=== PATIENT | female | born 1950 | race Caucasian/White ===

== ENCOUNTER → 2023-06-04 14:51 | Outpatient (CLI) | payer MEDICARE, SELFPAY ==
--- NOTE | 2023-06-04 15:06 | XR_ITS ---
FINAL REPORT CLINICAL HISTORY: right knee pain FINDINGS: RIGHT KNEE 3 views of the right knee were obtained. There is no acute fracture or dislocation. There is mild medial compartment joint space narrowing. Visualized joint spaces are normally aligned. Soft tissues are unremarkable. IMPRESSION: No acute bony abnormality. Reviewed, Interpreted and Dictated by Luiz Adams MD Transcribed by Mackenzie Elena Authenticated and [facility]
== END ==
PROVIDERS: Visit Provider Orthopaedic Surgery
DX: M25.561 Pain in right knee (principal)
CPT/HCPCS: 73562

== ENCOUNTER 2023-08-03 14:44 | Outpatient (CLI) | payer MEDICARE, SELFPAY ==
--- NOTE | 2023-08-03 15:29 | MR_ITS ---
FINAL REPORT CLINICAL HISTORY: knee pain. MEDIAL SIDED KNEE PAIN. KNEE INSTABILITY. COMPARISON: None FINDINGS: Multiplanar MR imaging of the right knee was performed without contrast. There is a tear at the junction of the posterior horn and posterior root of the medial meniscus. There is medial subluxation of the body The anterior and posterior cruciate ligaments are intact. The medial collateral ligament and lateral ligamentous complex are intact. There are foci of patellar tendinitis present. There is no evidence of fracture. Moderate patellar chondromalacia is present as well as moderate medial compartment chondromalacia. A small joint effusion is seen. The musculature is intact. A small popliteal cyst is present. IMPRESSION: Tear at the junction of the posterior horn and posterior root of the medial meniscus with medial subluxation of the body of the medial meniscus. Moderate patellar chondromalacia and moderate medial compartment chondromalacia, with a small joint effusion and a small popliteal cyst. Foci of patellar tendinitis are present. Reviewed, Interpreted and Dictated by Kush Cabrera III, MD Transcribed by Annette Badillo Authenticated and [facility]
== END 2023-08-03 23:59 ==
PROVIDERS: PCP Orthopaedic Surgery; Visit Provider Orthopaedic Surgery
DX: M25.561 Pain in right knee (principal)
CPT/HCPCS: 73721

== ENCOUNTER 2023-09-28 14:51 | Outpatient (POV) | payer MEDICARE, SELFPAY | END 2023-09-28 23:59 | disposition home or self-care (01) | LOC: SC 14:51 | PROVIDERS: Visit Provider Dermatology | DX: Z00.00 Encounter for general adult medical examination without abnormal findings (principal) ==

== ENCOUNTER 2023-11-05 15:11 | Outpatient (CLI) | payer MEDICARE, SELFPAY | END 2023-11-05 23:59 | disposition home or self-care (01) | LOC: LAB.DROPOF 11-08 15:12 | PROVIDERS: PCP Family Medicine; Visit Provider Family Medicine | DX: Z01.818 Encounter for other preprocedural examination (principal); R53.83 Other fatigue; I10 Essential (primary) hypertension; E78.5 Hyperlipidemia, unspecified; E55.9 Vitamin D deficiency, unspecified; E11.9 Type 2 diabetes mellitus without complications | CPT/HCPCS: 87081 ==

== ENCOUNTER 2023-11-09 12:58 | Outpatient (CLI) | payer MEDICARE, SELFPAY ==
[2023-11-09 13:28] LABS: Basophils # 0.1 K/mm3 (0-0.2); Eosinophils # 0.3 K/mm3 (0.0-0.4); Eosinophils % 3.6 % (0.1-12.0); Hematocrit 43.2 % (37.0-47.0); Hemoglobin 14.1 g/dL (12.2-16.2); Lymphocytes # 3.4 K/mm3 (0.7-4.5); Lymphocytes % 44.7 % (10-50); Mean Corpuscular HGB Conc 32.7 g/dL (31.8-35.4); Mean Corpuscular Hemoglobin 31.1 pg (27.0-31.2); Mean Corpuscular Volume 95.4 fl (81-99); Mean Platelet Volume 8.5 fl (7.4-10.4); Monocytes # 0.3 K/mm3 (0.1-1.0); Monocytes % 4.3 % (1.7-9.3); Neutrophils # 3.6 K/mm3 (1.8-7.8); Neutrophils % 46.5 % (37.0-80.0); Platelet Count 369 K/mm3 (142-424); Red Blood Count 4.53 M/mm3 (4.20-5.40); Red Cell Distribution Width 14.6 % (11.5-17.5); White Blood Count 7.7 K/mm3 (4.8-10.8)
[2023-11-09 14:01] LABS: Alanine Aminotransferase 30 U/L (12-78); Albumin Level 4.3 g/dl (3.5-5.0); Albumin/Globulin Ratio 1.3 (1.1-1.8); Alkaline Phosphatase 91 U/L (38-126); Anion Gap 14.5 mEq/L (5-15); Aspartate Amino Transferase 37 U/L (14-36); Bilirubin,Total 0.6 mg/dl (0.2-1.3); Blood Urea Nitrogen 18 mg/dl (7-17); Calcium 9.4 mg/dl (8.4-10.2); Carbon Dioxide 27 mmol/L (22.0-30.0); Chloride 104 mmol/L (98-107); Chol/HDL Ratio 3.7 (1-3.5); Cholesterol 300 mg/dl (140-200); Estimated Glomerular Filt Rate 71 ml/min (>60); GFR (African American) 86 ML/MIN (>60); Globulin 3.3 g/dL (1.3-3.2); Glucose 166 mg/dl (74-100); HDL Cholesterol 82 mg/dl (40-60); Potassium 3.5 mmoL/L (3.5-5.1); Sodium 142 mmol/L (136-145); Total Protein,Serum 7.6 g/dl (6.3-8.2); Triglycerides 294 mg/dl (30-150); VLDL Cholesterol 59 mg/dL (0-40)
[2023-11-09 14:12] LABS: C-Reactive Protein 2.2 mg/L (0-4); Direct LDL Cholesterol 165.56 mg/dL (100-129)
[2023-11-09 14:17] LABS: 25-OH Vitamin D, Total 36.5 ng/mL (30-100)
[2023-11-09 14:34] LABS: Thyroid Stimulating Hormone 1.67 uIU/mL (0.465-4.68)
[2023-11-09 14:47] LABS: Erythrocyte Sedimentation Rate 26 mm/hr (0-30)
[2023-11-11 07:20] LABS: RA Latex Turbid. 11.2 IU/mL (<14.0)
[2023-11-11 14:04] LABS: Anti-Cyclic Citrullinated Pept 6 units (0-19)
[2023-11-11 14:24] LABS: Anti-DNA (DS) Ab Qn <1 IU/mL (0-9)
[2023-11-11 14:24] LABS: Anti-Centromere B Antibodies <0.2 AI (0.0-0.9); Anti-DNA (DS) Ab Qn <1 IU/mL (0-9); Anti-Jo-1 <0.2 AI (0.0-0.9); Anti-Smith Antibody <0.2 AI (0.0-0.9); Antichromatin Antibodies 0.2 AI (0.0-0.9); Antiscleroderma-70 Antibodies <0.2 AI (0.0-0.9); RNP Antibodies 2.6 AI (0.0-0.9); Sjogren's Anti-SS-A <0.2 AI (0.0-0.9); Sjogren's Anti-SS-B <0.2 AI (0.0-0.9)
[2023-11-12 04:25] LABS: Lupus Reflex Interpretation Comment: (.); PTT-LA 37.4 sec (0.0-43.5); dRVVT 37.4 sec (0.0-47.0)
== END 2023-11-09 23:59 | disposition home or self-care (01) ==
LOC: LAB 12:59
PROVIDERS: PCP Family Medicine; Visit Provider Family Medicine
DX: R53.83 Other fatigue (principal); E78.5 Hyperlipidemia, unspecified; E55.9 Vitamin D deficiency, unspecified; Z68.37 Body mass index [BMI] 37.0-37.9, adult; E66.9 Obesity, unspecified; M54.9 Dorsalgia, unspecified
CPT/HCPCS: 36415; 80053; 80061; 82306; 84443; 85025; 85613; 85651; 86140; 86200; 86225; 86235; 86431

== ENCOUNTER 2023-12-13 12:03 | Emergency (ER) | payer MEDICARE, SELFPAY ==
[2023-12-13 12:13] VITALS: BP 162/99; PULSE 73; RESP 18; TEMP 36.9; O2SAT 97; BMI 36.7
[2023-12-13] MEDS: TETRACAINE 0.5% OPTH SOL 15ML OP (13:10)
[2023-12-13] MEDS: ACYCLOVIR 400MG TAB 800 MG PO (13:10)
--- NOTE | 2023-12-13 13:50 | HMH.EDGENADL ---
Discharge Plan Disposition Patient Disposition: Xfer Short-Term Hosp Chief Complaint: Skin/Abscess/Foreign Body Prescriptions Prescriptions: No Action duloxetine 60 mg capsule,delayed release(DR/EC) 60 mg PO BID amlodipine 10 mg tablet 10 mg PO DAILY lisinopril 20 mg tablet 20 mg PO DAILY pantoprazole [Protonix] 40 mg tablet,delayed release (DR/EC) 40 mg PO DAILY pregabalin 150 mg capsule 150 mg PO BID Referrals Follow up/Referrals: Provider,Referral, MD [Primary Care Provider] - See instructions Clinical Impressions Clinical Impression: Increased intraocular pressure, Herpes zoster ophthalmicus Stand Alone Forms Stand Alone Forms: Transfer Record - ED Instructions Patient Instructions: DI for Skin Abscess Discharge ED Provider: Edd Fatima General Adult HPI General Chief complaint: Skin/Abscess/Foreign Body Stated complaint: breakout in head Time Seen by Provider: 12/13/23 12:17 Mode of Arrival: Ambulatory Source of Information: Patient Limitations: No Limitations Description of Symptoms (Recalled from ER Triage Doc. by RN): Patient reports blisters on her head and nose. Patient reports she as at [facility] a few nights ago and diagnosed with optical neuritis. History of Present Illness HPI narrative: Please note that above description of symptoms, in this electronic medical record under categorization of recalled from ER triage doctor by RN are reflective of an initial nursing assessment, however, is not reflective of my full history and physical exam that was personally taken and clarified. Consequentially, this preceding description of symptoms, which may include the patient's categorized chief complaint in the EMR, do not reflect my personal clinical impression, and the ultimate description of history of present illness and patient stated complaints should be deferred to this section of the note. Unless stated otherwise or congruent with this section of the note, additional signs, symptoms, or incongruence should be interpreted as inaccurate with my clinical impression. Related Data Home Medications Medication Instructions Recorded Confirmed amlodipine 10 mg tablet 10 mg PO DAILY 11/05/23 11/05/23 duloxetine 60 mg capsule,delayed 60 mg PO BID 11/05/23 11/05/23 release lisinopril 20 mg tablet 20 mg PO DAILY 11/05/23 11/05/23 pantoprazole 40 mg tablet,delayed 40 mg PO DAILY 11/05/23 11/05/23 release (Protonix) pregabalin 150 mg capsule 150 mg PO BID 11/05/23 11/05/23 Allergies Allergy/AdvReac Type Severity Reaction Status Date / Time tizanidine [From Zanaflex] AdvReac Intermediate Hallucinati Verified 11/05/23 13:23 ng tramadol AdvReac Mild Other Verified 11/05/23 13:22 PFSH [facility] Disclaimer: The information contained in this section may have been updated after the patient was seen, as this information can be updated by other users. Medical History (Updated 12/13/23 @ 15:40 by Edd Fatima MD) Raynaud's disease Hypertension Osteoarthritis Neuropathy Diabetes Surgical History (Updated 11/05/23 @ 13:31 by Brooke Covarrubias CMA) History of lumbar fusion History of fusion of cervical spine Hx of laparoscopic gastric banding H/O tubal ligation History of appendectomy Family History (Updated 11/05/23 @ 13:32 by Brooke Covarrubias CMA) Other Cancer Coronary artery disease Diabetes Heart attack Hypertension Social History (Updated 11/05/23 @ 13:33 by Brooke Covarrubias CMA) Smoking Status: Never smoker alcohol intake: never substance use type: denies use current occupational status: unemployed and other Travel in the last 8 weeks: None ROS Obtained: Yes All systems reviewed & no additional complaints except as documented Physical Exam General General appearance: alert and in no apparent distress Head Head exam: atraumatic, normocephalic and other (Numerous scabs on scalp on the right and left side. Also redness and scabbing on left side of forehead. Small lesions on tip of nose as well) Eye Eye exam: Present normal appearance, PERRL and EOMI ENT ENT exam: Present mucous membranes moist Neck Neck exam: Present normal inspection, full ROM and trachea midline Respiratory Respiratory exam: Absent respiratory distress, wheezes, stridor, accessory muscle use or prolonged expiratory phase Cardiovascular Cardiovascular exam: Present normal rhythm Abdominal Exam Abdominal exam: Present soft; Absent distention, tenderness, guarding, rebound or rigidity Extremities Exam Extremities exam: Absent edema Neurological Exam Neurological exam: Present alert, oriented X3, CN II-XII intact and normal gait; Absent motor sensory deficit Skin Skin exam: Present warm and dry; Absent diaphoresis or erythema Medical Decision Making Medical Records Medical records reviewed: Yes I reviewed the patient's medical records. Artemio Inquiry Pt receiving controlled substance: No Artemio was queried for this patient: No Vital Signs: 12/13/23 12:13 12/13/23 14:23 Temperature 98.5 F Temperature Source Oral Pulse Rate 62 Pulse Rate [Right Brachial] 73 Respiratory Rate 18 Blood Pressure 170/90 H Blood Pressure [Right Arm] 162/99 H Blood Pressure Mean [Right Arm] 120 Blood Pressure Position Sitting 02 Sat by Pulse Oximetry 97 97 Oxygen Delivery Method Room Air Room Air Orders (Tests/Meds): ED MEDICATIONS Discontinued Medications Generic Name Dose Route Start Last Admin Trade Name Zehra PRN Reason Stop Dose Admin Acyclovir 800 mg 12/13/23 12:48 12/13/23 13:10 Acyclovir 400mg Tab PO 12/13/23 12:49 800 mg ONCE ONE Administration Tetracaine HCl 0 ml 12/13/23 12:48 12/13/23 13:10 Tetracaine 0.5% Opth Allison 15ml OP 12/13/23 12:49 15 ml ONCE ONE Administration Medical Decision Narrative: 73-year-old female history of optic neuritis, hypertension, hyperlipidemia, concern for autoimmune disorder presenting with concern for shingles infection. Patient states that this has been going on for about 2 days at this point. Scabs on her scalp, painful. No fevers or chills, vision changes, but she is also having left ear pain. Was seen at [facility] just a few days prior to this visit, MRI of the head without acute intracranial abnormality or signs of MS. At that time, intraocular pressures were elevated, was recommended that she go directly to [facility], but patient declined and left AMA. ESR and CRP were negative. Presents today with the symptoms as well. History obtained with patient and outside hospital chart review. On arrival, patient hemodynamically stable, well-appearing. She does have scabs on both sides of her scalp as well as on the left side of her forehead and going down her nose. Visual acuity OS 20/50, OD 20/30, bilateral vision 20/30. Intraocular pressures 40 on the left, 38 on the right. Otic exam without lesions. Differential includes shingles, bug bites, among others. Acyclovir given orally. Because intraocular pressures are increasing from outside hospital just a couple days prior (both in the 20s) and she was supposed go to , but was unable to due to social circumstances, was contacted. Did not recommend IOP lowering eyedrops at this time. Recommended acyclovir which was already given, patient to be transferred to for further evaluation of steadily increasing intraocular pressures and scalp tenderness. Because patient high risk for clinical decompensation if discharged, deemed appropriate for transfer and inpatient admission. Results were relayed to patient who voiced understanding and patient was agreeable to transfer, inpatient admission, and management. Patient was graciously accepted and transferred to for further definitive management, under Dr. Byrd. [employer] Refueling Handler disclaimer Much of this encounter note is an electronic denture technician spoken language to printed text. Electronic denture technician of the spoken language may permit errors. Although I have reviewed the note, some errors may still exist. Critical Care Critical Care Time Critical Care Time: Yes (neuro) Attestation: On 12/13/23, the high probability of a clinically significant, sudden or life threatening deterioration of the following system(s) required my full and direct attention, intervention and personal management. The time I documented below is in addition to time spent performing reported procedures but includes the following listed in this critical care notation. Total Time Total Critical Care Time: 35
[2023-12-13 14:23] VITALS: BP 170/90; PULSE 62; O2SAT 97
--- NOTE | 2023-12-13 14:54 | PC.NURSE ---
Called [facility] transfer center about pt transfer. Waiting for call back from Dr. Byrd.
--- NOTE | 2023-12-13 14:56 | PC.NURSE ---
Dr. Fatima speaking with Dr. Byrd about pt transfer
--- NOTE | 2023-12-13 15:35 | PC.NURSE ---
spoke with EMS for BLS transfer to [facility] for ophthalmology services
[2023-12-13 15:54] LABS: Basophils # 0.1 K/mm3 (0-0.2); Basophils % 1.2 % (0.1-2.0); Eosinophils # 0.3 K/mm3 (0.0-0.4); Eosinophils % 3.7 % (0.1-12.0); Hematocrit 42.2 % (37.0-47.0); Hemoglobin 13.8 g/dL (12.2-16.2); Lymphocytes # 3.2 K/mm3 (0.7-4.5); Lymphocytes % 35.3 % (10-50); Mean Corpuscular HGB Conc 32.7 g/dL (31.8-35.4); Mean Corpuscular Volume 97.8 fl (81-99); Mean Platelet Volume 8.2 fl (7.4-10.4); Monocytes # 0.5 K/mm3 (0.1-1.0); Neutrophils # 4.9 K/mm3 (1.8-7.8); Neutrophils % 54.8 % (37.0-80.0); Platelet Count 297 K/mm3 (142-424); Red Blood Count 4.31 M/mm3 (4.20-5.40); Red Cell Distribution Width 15.1 % (11.5-17.5)
[2023-12-13 16:01] LABS: Chloride 103 mmol/L (98-107); Potassium 3.8 mmoL/L (3.5-5.1); Sodium 138 mmol/L (136-145)
[2023-12-13 16:03] LABS: Alanine Aminotransferase 27 U/L (12-78); Aspartate Amino Transferase 36 U/L (14-36); Blood Urea Nitrogen 21 mg/dl (7-17); Creatinine Clearance Estimated 79 mL/min (50-200); Estimated Glomerular Filt Rate 62 ml/min (>60); GFR (African American) 75 ML/MIN (>60)
[2023-12-13 16:04] LABS: Albumin Level 4.2 g/dl (3.5-5.0); Albumin/Globulin Ratio 1.1 (1.1-1.8); Alkaline Phosphatase 100 U/L (38-126); Anion Gap 9.8 mEq/L (5-15); Bilirubin,Total 0.6 mg/dl (0.2-1.3); Calcium 9.1 mg/dl (8.4-10.2); Carbon Dioxide 29 mmol/L (22.0-30.0); Globulin 3.7 g/dL (1.3-3.2); Glucose 92 mg/dl (74-100); Total Protein,Serum 7.9 g/dl (6.3-8.2)
[2023-12-13 16:09] LABS: C-Reactive Protein 6.1 mg/L (0-4)
[2023-12-13 16:17] LABS: Erythrocyte Sedimentation Rate 22 mm/hr (0-30)
[2023-12-13 16:32] VITALS: BP 136/79; PULSE 80; RESP 20; TEMP 36.7; O2SAT 96
== END 2023-12-13 16:33 | disposition short-term general hospital (02) ==
PROVIDERS: Emergency Provider Emergency Medicine
DX: B02.30 Zoster ocular disease, unspecified (principal); H40.053 Ocular hypertension, bilateral; I10 Essential (primary) hypertension; I73.00 Raynaud's syndrome without gangrene
CPT/HCPCS: 80053; 85025; 85651; 86140; 99285

== ENCOUNTER 2024-08-29 11:43 | Outpatient (CLI) | payer MEDICARE, SELFPAY ==
--- NOTE | 2024-08-29 | XR_ITS ---
FINAL REPORT TECHNIQUE: Thoracic spine 2 views CLINICAL HISTORY: BACK PAIN COMPARISON: None FINDINGS: THORACIC SPINE: AP and lateral views of the thoracic spine were obtained. There is no prior exam for comparison. There is no acute fracture or malalignment. A spinal stimulator device is noted. There is evidence of prior lower cervical spine hardware. There is 20 degrees of dextroscoliosis present. Vertebral body height is preserved. Paraspinal soft tissues are within normal limits. Note is made of a lap band in the left upper quadrant of the abdomen. IMPRESSION: Mild dextroscoliosis as described. No acute bony abnormality identified. Reviewed, Interpreted and Dictated by Luiz Adams MD Transcribed by Annette Badillo Authenticated and [facility]
== END 2024-08-29 23:59 | disposition home or self-care (01) ==
LOC: RAD 11:46
PROVIDERS: PCP Physician Assistant; Visit Provider Physician Assistant
DX: M54.6 Pain in thoracic spine (principal)
CPT/HCPCS: 72072

== ENCOUNTER 2024-12-27 07:57 | Emergency (ER) | payer MEDICARE, SELFPAY ==
--- OUTSIDE RECORDS SUMMARY | 2016-10-25 20:00 | XMS_ITS | Continuity of Care Document ---
Author Organization [facility] [employer] [facility] Address [address] [place] [phone] Phone Care Team Providers Care Competitive Shopper Name Role Phone Marcus Leung MD Unavailable Unavailable Procedures Procedure Date INPATIENT CONSULTATION SUBSEQUENT HOSPITAL CARE ECHO 2D W/DOPPLER Advance Directives Directive Yes / No Effective Date File Name No Information Encounters Encounter Description Practice Location Reason(s) For Visit Diagnoses Date Provider Providers Copied on Encounter [facility], [address] [place] [address], [id number], tel:[phone] [facility] IP No Information Madhu Velazquez. [address] [place] [address], [id number], [place]. tel:[phone] Referring Provider: Aaron Catalan, [address] [place] [address], [id number]. tel:[phone] [facility] [employer] [facility], [address] [place] [address], [id number], tel:[phone] [facility] IP No Information Rubén Gan. [address] [place] [address], [id number], . tel:[phone] Referring Provider: Aaron Catalan, [address] [place] [address], [id number]. tel:[phone] Family History Family Member Type Diagnosis Age At Onset No Information Payers Payer name Insurance type Covered alliance party ID Authorrayray hernandez(s) [facility] [place] [id number] Social History Type Description Quantity Date Captured [...]
--- OUTSIDE RECORDS SUMMARY | 2022-08-14 08:30 | XMS_ITS | Continuity of Care Document ---
Author Organization [facility] Address [address] [place] [address] Phone Care Team Providers Care Legal Secretary Name Role Phone Timothy Lux MD Unavailable Unavailable Allergies, Adverse Reactions, Alerts Substance Reaction Status Criticality prednisone burned stomach sever Active No Info rmation tramadol hallucinating Active No Information Medications Medication Instructions Dosage Effective Dates (start - stop) Status Comments lisinopril 20 mg tablet take 1 tablet by oral route every day 20 MG - Active Norvasc 10 mg tablet take 1 tablet by oral route every day 10 MG - Active Protonix 40 mg tablet,delayed release take 1 tablet by oral route every day 40 MG - Active Lipitor 20 mg tablet take 1 tablet by oral route every day 20 MG - Active Plavix 75 mg tablet take 1 tablet by oral route every day 75 MG - Active Lyrica 100 mg capsule take 1 capsule by oral route 2 times every day 100 MG - Active hydrocodone 5 mg-ibuprofen 200 mg tablet take 1 tablet by oral route every 4 hours as needed not to exceed 5 tablets in 24hrs 1.00 tablet - Active Cymbalta 60 mg capsule,delayed release take 1 capsule by oral route every day 60 MG - Active Procedures Procedure Date EYE EXAM, Comprehensive, Established Jul FLUORESCEIN ANGIOGRAPHY WITH INTERPRETAT ION AND REPORT FUNDUS PHOTOGRAPHY WITH INTERPRETATION A ND REPORT INTRAVITREAL INJECTION OF A PHARMACOLOGI C AGENT Eylea Injection, Aflibercept, 1mg OFFICE/OUTPATIENT VISIT, [facility] Advance Directives Directive Yes / No Effective Date File Name No Information Encounters Encounter Description Practice Location Reason(s) For Visit Diagnoses Date Provider Providers Copied on Encounter [facility], [address] [place] [address], [id number], tel:[phone] [facility] [place] CRVO (chief complaint) Central retinal vein occlusion, left eye, with macular edemaNS Cat Bilateral Jose J Aguirre. [address] [place] [address], [id number], . tel:[phone] OFFICE/OUTPATI ENT VISIT, [facility], [address] [place] [address], [id number], tel:[phone] [facility] [place] Vision Loss (chief complaint) CRVO w/ ME OS Agustin Wolf. [address] [place] [address], [id number], . tel:[phone] Referring Provider: Trent Lam, [address] [place], [address]. tel:[phone] Family History Family Member Type Diagnosis Age At Onset Mother Problem (finding) Diabetes mellitus Mother Problem (finding) Cardiovascular disease Mother Problem (finding) Hypertension Payers Payer name Insurance type Covered green party ID Authoriza tion(s) Medicare [place] [id number] [facility] HealthCareOptions Supplement [place] [id number] Social History Type Description Quantity Date Captured Comments Alcohol Use Details Unknown Caffeine Use Details Unknown Tobacco Use Status No Information Smoking Status No Information Sex Female Chief Complaint And Reason For Visit From encounter dated '08/14/2022 12:30'. CRVO (chief complaint). Description: Referred by Dr. Velez for CVO. Patient awakened with poor vision OS. Went to [facility] and was admitted for stroke workup. Reason For Referral Reason For Referral No Information History Of Present Illness Encounter Date Complaint History Of Prese nt Illness CRVO Referred by Dr. Velez for CVO. Patient awakened with poor vision OS. Went to [facility] and was admitted for stroke workup. Vision Loss Pt noticed 2 wks ago she had vision loss in OS, went to hosp for 6 days for testing to rule out stroke and heart, wearing a heart monitor now, since then has had no change in vision, OD doing goodsometimes pain when looking from side to sideDiab no longer treated for 4-5 yrssees a neuro doctor and a cardiologisthx of IOP highHX of high pressures Functional Status Date Functional Assessmen t No Information Instructions Date Instruction Additional Infor mation Return in [address] Lux for follow up exam and OCT (Macula). Related to Central retinal vein occlusion, left eye, with macular edema Impression/Plan Related to Centr al retinal vein occlusion, left eye, with macular edema Impression/Plan Related to NS Ca t Bilateral 1 day CRVO eval with Dr. Lux Related to CRVO w/ ME OS Impression/Plan Related to CRVO w/ ME OS Assessments Type Assessment Date assessment Central retinal vein occlusion, left eye, with macular edema impression Central retinal vein occlusion, left eye, with macular edema: H34.8120 OS.-not in any way related to embolic disease assessment NS Cat Bilateral impression NS Cat Bilateral: H25.13 OU Patient Care Teams Name Effective Dates (start - stop) Status Members No Information
--- OUTSIDE RECORDS SUMMARY | 2023-10-29 07:00 | XMS_ITS ---
Author Organization [facility] Address [address] [place] [address] [address] [place] [address] Care Team Providers Care Janitorial Account Manager Name Role Phone Patt Joseph Primary Care [...] (MACP) Encounters Encounter Location Date Provider Diagnosis [address] [address] 10/29/2023 Patt Joseph Assessments Encounter Date Diagnosis [...] * DEUCE STORYOB: [birth year] (74 yo F)Acc No.[id number]:10/29/2023 Progress Notes Patient: JIM DAVE Provider: Barbara Morfin M.D. :1950 A ge:73 Y S ex:Female Date:10/29/2023 Address:[address] [place] [address], [place], [id number] Subjective: * Chief Complaints: * 1 . [...] Electronic signature of Jeremi Enriquez MD on 12/27/2024 at 08:03 AM EDT Sign off status: Pending * Provider: Barbara Morfin M.D. Date: 0 10/29/2023 Generated for Lennox fong/Shannon/eTransmitting on: 0 12/27/2024 08:03 AM EDT History and Physical Notes * HPI (History of Present Illness) Category Sub-Category Detail Notes Category Not es Care of Older Adults DME Do you use a DME company?: - Depression Screening PHQ-2 (2015 Edition) Total Score: - Coordination of Care Providers and Specialists D o you have other providers/speciali sts?: -
--- OUTSIDE RECORDS SUMMARY | 2024-12-27 08:02 | XMS_ITS | Continuity of Care Document ---
Author Organization [facility]. If a dditional information is needed, contact Health Information Management at [phone] [address] [place] [address] Phone Care Team Providers Care Jury Consultant Name Role Phone Unavailable Unavailable Unavailable Unavailable Unavailable Unavailable Unavailable Unavailable Unavailable Unavailable Unavailable Unavailable Problems Pneumonia caused by SARS-CoV -2 Onset:06-Oct-2020 Lawanda Gordillo MD Respiratory failure Onset:06-Oct-2020 Lawanda Gordillo MD Mental Status Cognitive function finding 06-Oct-2020 Cognitive function finding 05-Apr-2016 Functional Status Functional finding 05-Apr-2016 Functional finding 01-Apr-2016 Allergies and Adverse Reactions tramadol(Allergy) Onset: 06-Oct-2020 Reaction:FLU LIKE SYMPTOMS Tizanidine(Allergy) Onset: 06-Oct-2020 Reaction:HALLUCINATIONS tramadol(Allergy) Onset: 01-Apr-2016 Reaction:/ Tizanidine(Allergy) Onset: 01-Apr-2016 Reaction:/ Medications dexAMETHasone 6 MG Oral Tablet;6 MILLIGRAM PO DAILY Start:10-Oct-2020 Comments:6 MG PO DAILY 50 ML glucose 500 MG/ML Prefilled Syringe;50 MILLILITERS INTRAVEN. ASDIR Quantity:1 Marina Blue MD Start:07-Oct-2020 Status:Discontinued Comments:[id number] Administration Instructions:GIVE PRN BS 0-65 MG/DL naloxone hydrochloride 0.4 MG/ML Injectable Solution;0.2 MILLIGRAM INTRAVEN. ASDIR Quantity:1 Marina Blue MD Start:06-Oct-2020 Status:Discontinued Comments:[id number] Administration Instructions:PRN RR < 8 or unresponsive to verbal or physical stimuli.Continue to monitor for resedation/respiratory depressionafter administration due to naloxone's short duration ofaction.Advancing respiratory depression bundleDefinition: receiving opioids and respiratory rate < 8 orunresponsive to verbal or physical stimuli1. Hold all opioids including removing patches and stoppinginfusions2. Administer naloxone 0.2mg PRN RR < 8 or unresponsive to cholecalciferol 0.025 MG Chewable Tablet;1000 UNIT PO DAILY Start:06-Oct-2020 Comments:1000 UNIT PO DAILY acetaminophen 325 MG / HYDROcodone bitartrate 5 MG Oral Tablet;1 TABLET PO Q6H PRN Start:06-Oct-2020 Comments:1 TAB PO Q6H PRN As Needed for OSTEOARTHRITIS azithromycin 250 MG Oral Tab let [Zithromax];250 MILLIGRAM PO DAILY Start:06-Oct-2020 Comments:250 MG PO DAILY lisinopril 20 MG Oral Tablet [Prinivil];20 MILLIGRAM PO DAILY Start:06-Oct-2020 Comments:20 MG PO DAILY NORVASC;5 MILLIGRAM PO DAILY Start:06-Oct-2020 Comments:5 MG PO DAILY guaiFENesin 400 MG Oral Tablet;400 MILLIGRAM PO DAILY Start:06-Oct-2020 Comments:400 MG PO DAILY aspirin 325 MG Oral Tablet;3 25 MILLIGRAM PO DAILY Start:06-Oct-2020 Comments:325 MG PO DAILY pantoprazole 40 MG Delayed Release Oral Tablet [Protonix];40 MILLIGRAM PO DAILY Start:06-Oct-2020 Comments:40 MG PO DAILY DULoxetine 60 MG Delayed Release Oral Capsule;60 MILLIGRAM PO BID Start:06-Oct-2020 Comments:60 MG PO BID methocarbamol 500 MG Oral Tablet;500 MILLIGRAM PO BID Start:06-Oct-2020 Comments:500 MG PO BID gabapentin 800 MG Oral Tablet;800 MILLIGRAM PO TID Start:06-Oct-2020 Comments:800 MG PO TID ZESTORETIC 20-25 MG TABLET;1 TABLET PO DAILY Start:03-Apr-2016 Comments:1 TAB PO DAILY CYMBALTA;60 MILLIGRAM PO BID Start:03-Apr-2016 Comments:60 MG PO BID IBUPROFEN;800 MILLIGRAM PO DAILY Start:03-Apr-2016 Comments:800 MG PO DAILY NORVASC;5 MILLIGRAM PO DAILY Start:03-Apr-2016 Comments:5 MG PO DAILY ASPIRIN;325 MILLIGRAM PO JACK LY Start:03-Apr-2016 Comments:325 MG PO DAILY NEURONTIN;600 MILLIGRAM PO BEDTIME Start:03-Apr-2016 Comments:600 MG PO BEDTIME GLUCOPHAGE XR;500 MILLIGRAM PO C DIN Start:03-Apr-2016 Comments:500 MG PO C DIN LISINOPRIL-HCTZ 20-25 MG TAB ;1 TABLET PO DAILY Start:01-Apr-2016 Status:Discontinued Comments:1 TAB PO DAILY CYMBALTA;60 MILLIGRAM PO JACK LY Start:01-Apr-2016 Status:Discontinued Comments:60 MG PO DAILY ASPIRIN;325 MILLIGRAM PO JACK LY Start:01-Apr-2016 Status:Discontinued Comments:325 MG PO DAILY IBUPROFEN;800 MILLIGRAM PO DAILY Start:01-Apr-2016 Status:Discontinued Comments:800 MG PO DAILY GLUCOPHAGE XR;500 MILLIGRAM PO DAILY Start:01-Apr-2016 Status:Discontinued Comments:500 MG PO DAILY NORVASC;5 MILLIGRAM PO DAILY Start:01-Apr-2016 Status:Discontinued Comments:5 MG PO DAILY NEURONTIN;600 MILLIGRAM PO BEDTIME Start:01-Apr-2016 Status:Discontinued Comments:600 MG PO BEDTIME Social History Smoking Status Never smoked tobacco Recorded: 06-Oct-2020
--- OUTSIDE RECORDS SUMMARY | 2024-12-27 08:03 | XMS_ITS | Data Portability ---
Author Organization [place] - [facility] - [place] & IMAN Ying ADMIN Address [address] [place] [phone] Care Team Providers Care Sales Representative Metals Name Role Phone [facility] Referring Provider MICHELLE BERMAN Primary Care Provider Assessment Encounter Date Assessment Date Assessment LastModified by Organization Details LastModified Time 09/07/2024 09/07/2024 No Images reviewed today 09/07/2024: Plan Today, I discussed with the patient about my current findings based on their history and/or physical exam. They have multiple pain generators, however I will treat their pain in a stepwise plan as outlined below. 1. #Intercostal Neuritis, chronic worsening # thoracic DDD - Patient complains of b/l thoracic back pain with referred pain /symptoms to her right and left chest. She mentions that is about the nipple level which correlates with T4 dermatome - This patient is a great candidate for b/l intercostal nerve block. I will plan to perform intercostal nerve block of the 4th - 6th intercostal nerves under fluoroscopic and ultrasound guidance. I will perform the blocks on the right first as this side is more severe. - I have discussed the risks and benefits of this procedure with the patient. The patient expressed understanding and would like proceed. All questions answered in detail. - patient will follow up to 4 weeks 2. #Lumbar spinal stenosis without neurogenic claudication, Chronic stable #Lumbar DDD #Postlaminectomy Syndrome, Chronic stable #Chronic Pain # Van SCS 2023 - s/p C4-C6 ACDF in 2011 and s/p L5-S1 transforaminal lumbar interbody fusion in 2018 - s/p Van SCS implant with Dr. Ilan Partida at [facility] in 2023 -Symptoms in the bilateral LE that is being controlled by her SCS -+ shopping cart sign -Patient has seen multiple pain management providers through the years due to her job forcing her to move. She has an SCS in place that is currently providing efficacy. Per patient, she is unable to go back to the pain management team who placed the device because of the charge that is due and she is unable to pay for that fee currently. She is wanting to go back to work that she can pay off that medical bill the. I will obtain medical records and imaging to review from her previous pain management providers. - Patient denies any previous interventional pain management injections despite having SCS. - Plan to follow up in clinic in 2-4 weeks. 3. #Chronic Pain Syndrome #Opioid Dependence #Chronic Prescription Controlled Substance Use -Drug therapy requiring intensive monitoring for toxicity A. Controlled Substance agreement: TBD B. UDS results reviewed: patient unable to urinate today. patient sent for blood draw. C. PDMP/HUSAM report obtained today and reviewed: reviewed and Appropriate Regina WEINER: [id number] E. As documented in the signed controlled substance agreement, the patient is aware of the risks associated with the administration of medication, including the risk of overdose and , the risk of developing misuse, abuse, and addiction to the prescribed medications, as well as the other risks associated with medication administration. Routine assessment for mental health conditions have been assessed during this visit, and the patient has been properly screened for substance use disorders (risk of developing and presence of these conditions). [email or web address] Not available 09/07/2024 16:09:58 09/28/2024 09/28/2024 Images reviewed today Thoracic Xrays: kyphosis, DDD, no acute Fx's. appears to be 2 SCS thoracic leads at T7/T8 09/28/2024: Plan Today, I discussed with the patient about my current findings based on their history and/or physical exam. They have multiple pain generators, however I will treat their pain in a stepwise plan as outlined below. 1. #Intercostal Neuritis, chronic worsening # thoracic DDD - s/p Right T4-T6 with ultrasound and fluoroscopic imagin% pain relief x 5 days. Pain returned on the 6th day. She was amazed out how much relief she got. During those 5 days, she had improved sleep, less pain, and better mood - she continues to have b/l thoracic back pain with referred pain symptoms to her right and left chest. She mentions that is about the nipple level which correlates with T4 dermatome - This patient is a great candidate for b/l intercostal nerve RFA. I discussed with the patient in detail regarding this procedure. She would like to consider and think it over before moving forward. - I would plan to perform intercostal nerve block of the 4th - 6th intercostal nerves under fluoroscopic and ultrasound guidance. 2. #Lumbar spinal stenosis without neurogenic claudication, Chronic stable #Lumbar DDD #Postlaminectomy Syndrome, Chronic stable #Chronic Pain # Van SCS 2023 - s/p C4-C6 ACDF in 2011 and s/p L5-S1 transforaminal lumbar interbody fusion in 2017 - s/p Van SCS implant with Dr. Ilan Partida at [facility] in 2023 -Symptoms in the bilateral LE that, per the patient, is not being controlled by her SCS at this time -+ shopping cart sign -Patient has seen multiple pain management providers through the years due to her job forcing her to move. Per patient, she is unable to go back to the pain management team who placed the device because of the charge that is due and she is unable to pay for that fee currently. She is wanting to go back to work that she can pay off that medical bill the. I previously requested medical records and imaging to review from her previous pain management providers. Awaiting these records - Patient denies any previous interventional pain management injections despite having SCS. - Discussed about an Van rep being here at the next visit 3. #Chronic Pain Syndrome #Opioid Dependence #Chronic Prescription Controlled Substance Use -Drug therapy requiring intensive monitoring for toxicity A. Controlled Substance agreement: TBD B. UDS results reviewed: Reviewed; THC w/ Delta present. Patient reported taking a 1 OTC gummi previously. Again, patient unable to urinate and was sent for blood draw. F/u in a week C. PDMP/HUSAM report obtained today and reviewed: reviewed and Appropriate Regina WEINER: [id number] E. : As documented in the signed controlled substance agreement, the patient is aware of the risks associated with the administration of medication, including the risk of overdose and , the risk of developing misuse, abuse, and addiction to the prescribed medications, as well as the other risks associated with medication administration. Routine assessment for mental health conditions have been assessed during this visit, and the patient has been properly screened for substance use disorders (risk of developing and presence of these conditions). [email or web address] Not available 09/28/2024 12:58:23 10/05/2024 10/05/2024 Images reviewed previously Thoracic Xrays: kyphosis, DDD, no acute Fx's. appears to be 2 SCS thoracic leads at T7/T8 Images reviewed today Lumbar xrays 09/28/24: DDD, hardware appreciated, b/l SIJ with DJD 10/05/2024: Plan Today, I discussed with the patient about my current findings based on their history and/or physical exam. They have multiple pain generators, however I will treat their pain in a stepwise plan as outlined below. 1. #b/l Sacroiliac Joint Pain, Chronic worsening # B/l Superior Cluneal Neuralgia -Patient has >3 provocative exam maneuvers which include + jairo's finger, HERRERA, thigh thrust, compression, distraction, Gaenslen's -patient has completed PT and other conservative therapies that were listed in the HPI. They remain symptomatic and have failed conservative therapies. - They are an appropriate candidate for this procedure. - Risks and benefits were discussed with the patient. The patient wishes to proceed with the injection. -Will schedule b/l diagnostic SI joint injection under flouroscopic guidance -If significant short term relief >75% on two occasions but no sustained relief consider SI joint ablation. Other options included lateral percutaneous fixation/fusion. - Total Time spent:43min that includes chart preparation, time spent in the room with the patient reviewing symptoms and discussing treatment options, and reviewing pertinent imaging 2. #Intercostal Neuritis, chronic worsening # thoracic DDD - s/p Right T4-T6 with ultrasound and fluoroscopic imagin% pain relief x 5 days. Pain returned on the 6th day. She was amazed out how much relief she got. During those 5 days, she had improved sleep, less pain, and better mood - she continues to have b/l thoracic back pain with referred pain symptoms to her right and left chest. She mentions that is about the nipple level which correlates with T4 dermatome - This patient is a great candidate for right intercostal nerve RFA in the future after we treat her b/l SIJ 3. #Lumbar spinal stenosis without neurogenic claudication, Chronic worsening #Lumbar DDD #Postlaminectomy Syndrome, Chronic stable #Chronic Pain # Van SCS 2023 - s/p C4-C6 ACDF in 2011 and s/p L5-S1 transforaminal lumbar interbody fusion in 2017 - s/p Van SCS implant with Dr. Ilan Partida at [facility] in 2023 -Symptoms in the bilateral LE that, per the patient, is not being controlled by her SCS at this time. The van rep is here today to interrogate the device. They were able to improve her coverage. Patient was happy -+ shopping cart sign -Patient has seen multiple pain management providers through the years due to her job forcing her to move. Per patient, she is unable to go back to the pain management team who placed the device because of the charge that is due and she is unable to pay for that fee currently. She is wanting to go back to work that she can pay off that medical bill the. I previously requested medical records and imaging to review from her previous pain management providers. Awaiting these records - Patient denies any previous interventional pain management injections despite having SCS. 4. #Chronic Pain Syndrome #Opioid Dependence #Chronic Prescription Controlled Substance Use -Drug therapy requiring intensive monitoring for toxicity A. Controlled Substance agreement: 10/05/24 B. UDS results reviewed: UDS on 10/05/24,reviewed and Appropriate; Blood draw was reviewed and Appropriate from 09/28/24. - I will initiate hydrocodone/apap 5/325 q24hr prn for now. She will f/u in a month to discuss if this has controlled her sx's and allowed to work. C. PDMP/HUSAM report obtained today and reviewed: reviewed and Appropriate Regina WEINER: [id number] E. : As documented in the signed controlled substance agreement, the patient is aware of the risks associated with the administration of medication, including the risk of overdose and , the risk of developing misuse, abuse, and addiction to the prescribed medications, as well as the other risks associated with medication administration. Routine assessment for mental health conditions have been assessed during this visit, and the patient has been properly screened for substance use disorders (risk of developing and presence of these conditions). blood draw from 09/07/24: THC w/ Delta present. Patient reported taking a 1 OTC gummi previously. [email or web address] Not available 10/05/2024 15:38:24 11/06/2024 11/06/2024 Images reviewed previously Thoracic Xrays: kyphosis, DDD, no acute Fx's. appears to be 2 SCS thoracic leads at T7/T8 Images reviewed today Lumbar xrays 09/28/24: DDD, hardware appreciated, b/l SIJ with DJD 11/06/2024: Plan Today, I discussed with the patient about my current findings based on their history and/or physical exam. They have multiple pain generators, however I will treat their pain in a stepwise plan as outlined below. 1. #b/l Sacroiliac Joint Pain, Chronic worsening # B/l Superior Cluneal Neuralgia -Patient has >3 provocative exam maneuvers which include + jairo's finger, HERRERA, thigh thrust, compression, distraction, Gaenslen's -Patient has completed PT and other conservative therapies that were listed in the HPI - Bilateral SI Dx injection was not completed as patient reports she is no longer having significant low back pain. 2. #Intercostal Neuritis, chronic worsening # thoracic DDD - S/p Right T4-T6 with ultrasound and fluoroscopic imagin% pain relief x 5 days. Pain returned on the 6th day. - This patient is a great candidate for right intercostal nerve RFA in the future - She is not complaining of Intercostal pain today. 3. #Lumbar spinal stenosis without neurogenic claudication, Chronic worsening #Lumbar DDD #Postlaminectomy Syndrome, Chronic stable #Chronic Pain # Van SCS 2023 - S/p C4-C6 ACDF in 2011 and s/p L5-S1 transforaminal lumbar interbody fusion in 2017 - S/p Van SCS implant with Dr. Ilan Partida at [facility] in 2023 -Symptoms in the bilateral LE that, per the patient, is not being controlled by her SCS at -+ shopping cart sign - Patient has seen multiple pain management providers through the years due to her job forcing her to move. Per patient, she is unable to go back to the pain management team who placed the device because of the charge that is due and she is unable to pay for that fee currently. She is wanting to go back to work that she can pay off that medical bill. Previously requested medical records and imaging to review from her previous pain management providers. Awaiting these records - Patient denies any previous interventional pain management injections despite having SCS. 4. #Chronic Pain Syndrome #Opioid Dependence #Chronic Prescription Controlled Substance Use -Drug therapy requiring intensive monitoring for toxicity A. Controlled Substance agreement: 10/05/24 B. UDS results reviewed: UDS on 10/05/24,reviewed and Appropriate; Blood draw was reviewed and Appropriate from 09/28/24. - Continue hydrocodone/apap 5/325 q24hr prn - this medication is giving patient ability to return to work. I will discuss with Dr. Valero who will review and sign the order. C. PDMP/HUSAM report obtained today and reviewed: reviewed and Appropriate Regina WEINER E. : As documented in the signed controlled substance agreement, the patient is aware of the risks associated with the administration of medication, including the risk of overdose and , the risk of developing misuse, abuse, and addiction to the prescribed medications, as well as the other risks associated with medication administration. Routine assessment for mental health conditions have been assessed during this visit, and the patient has been properly screened for substance use disorders (risk of developing and presence of these conditions). - Blood draw from 09/07/24: THC w/ Delta present. Patient reported taking a 1 OTC gummi previously. She no longer takes gummies. [email or web address] Not available 11/07/2024 12:32:04 12/14/2024 12/14/2024 Images reviewed today Thoracic Xrays: kyphosis, DDD, no acute Fx's. appears to be 2 SCS thoracic leads at T7/T8 Lumbar xrays 09/28/24: DDD, hardware appreciated, b/l SIJ with DJD 12/14/2024: Plan Today, I discussed with the patient about my current findings based on their history and/or physical exam. They have multiple pain generators, however I will treat their pain in a stepwise plan as outlined below. 1. #b/l Sacroiliac Joint Pain, Chronic worsening # B/l Superior Cluneal Neuralgia -Patient has >3 provocative exam maneuvers which include + jairo's finger, HERRERA, thigh thrust, compression, distraction, Gaenslen's -Patient has completed PT and other conservative therapies that were listed in the HPI - They are an appropriate candidate for this procedure. - Risks and benefits were discussed with the patient. The patient wishes to proceed with the injection. -Will schedule b/l diagnostic SI joint injection under flouroscopic guidance -If significant short term relief >75% on two occasions but no sustained relief consider SI joint ablation. Other options included lateral percutaneous fixation/fusion. - Total Time spent:45min that includes chart preparation, time spent in the room with the patient reviewing symptoms and discussing treatment options, and reviewing pertinent imaging 2. #Intercostal Neuritis, chronic worsening # thoracic DDD - S/p Right T4-T6 with ultrasound and fluoroscopic imagin% pain relief x 5 days. Pain returned on the 6th day. pain is worsening and is affecting her daily life. Will pursue after the SIJ injections - This patient is a great candidate for right intercostal nerve RFA in the future 3. #Lumbar spinal stenosis without neurogenic claudication, Chronic worsening #Lumbar DDD #Postlaminectomy Syndrome, Chronic stable #Chronic Pain # Van SCS 2023 - S/p C4-C6 ACDF in 2011 and s/p TLIF L5-S1 (DOS 11/27/16) - S/p Van SCS implant with Dr. Ilan Partida at [facility] in 2023 -Symptoms in the bilateral LE that is not being controlled by her SCS when she is walking. IF she wants to get relief, she has to either extend or back or lay flat on the ground bc the leads are positional. - Continues to have positional pain relief with the SCS. I discussed either attempting to perform a revision to fix the leads where they may not be positional anymore or refer to [facility] to assess for a paddle lead placement to reduce the migration effect tremendously. I will refer to [facility] for paddle lead assessment. 4. #Chronic Pain Syndrome #Opioid Dependence #Chronic Prescription Controlled Substance Use - I had a detailed discussion with the patient regarding treatment modalities and the respective risks/benefits. I educated the patient on the dangers/risks of long-term oral opioids, particularly with increasing age, these risks include respiratory depression, not excluding . I informed the patient that the goal of [facility] will be to incorporate a multi-modal approach to pain management, which may consist of conservative, pharmacologic, and interventional approaches, ultimately decreasing pain and increasing function with focus on both safety and efficacy. I informed the patient that the intention will be to slowly taper once pain is better controlled. The patient verbalized understanding and agreeing to the treatment plan set forth. -Drug therapy requiring intensive monitoring for toxicity - patient is having increasing pain and sx's at this time. She was able to find a job, but subsequently was unable to take it bc the pain was going to inhibit her. At this time, patient would benefit from additional medication to help her be able to perform the job she is applying for. Will increase the medication to q12hr prn for now. hydrocodone/apap 5/325 q12hr prn x 30 days #60 A. Controlled Substance agreement: 10/05/24 B. UDS results reviewed: UDS on 10/05/24,reviewed and Appropriate; Blood draw was reviewed and Appropriate from 09/28/24. C. PDMP/HUSAM report obtained today and reviewed: reviewed and Appropriate Regina WEINER: [id number] E. : As documented in the signed controlled substance agreement, the patient is aware of the risks associated with the administration of medication, including the risk of overdose and , the risk of developing misuse, abuse, and addiction to the prescribed medications, as well as the other risks associated with medication administration. Routine assessment for mental health conditions have been assessed during this visit, and the patient has been properly screened for substance use disorders (risk of developing and presence of these conditions). - Blood draw from 09/07/24: THC w/ Delta present. Patient reported taking a 1 OTC gummi previously. She no longer takes gummies. [email or web address] Not available 12/14/2024 16:21:49 Plan of Treatment Reminders Order Date Submit Date Provider Last Modified By Organization Details Last Modified Time Details Appointments OV EST 15 2024 11:30A Rula VANESSA, DO Not available Not available Not available Lab drug screen, blood 2024 025 [email or web address] [facility] (Laboratory), [address] , [place], [address], 10/10/2024 10:07:56 drug screen, blood - 13 panel 2024 025 [email or web address] Not available 09/18/2024 10:43:50 Referral neurolog ical surgeon referral - patient had SCS implante d by an outside physicia n in 2023. 2 thoracic lead SCS implant that is position al. please eval for potentia l paddle lead candidat e 2024 025 [facility], [address], [address], [place], [address], 12/22/2024 04:11:34 Procedures injectio n, sacroili ac joint (PROC) - 67653-09 b/l Dx SIJ injectio n 2024 025 [email or web address] Roberto Vanessa DO, [address], [address], [place], [address], 12/18/2024 11:09:21 injectio n, sacroili ac joint (PROC) - 51350-08 b/l Dx SIJ injectio n 2024 025 [email or web address] Roberto Vanessa DO, [address], [address], [place], [address], 12/25/2024 10:46:14 nerve block, intercos bimal (PROC) - 07631, [id number] right T4-T6 intercos bimal nerve w/ U/s and fluoro 2024 025 Roberto Vanessa DO, [address], [address], [place], [address], 09/08/2024 11:42:00 Surgeries None recorded . Imaging XR, lumbar spine, 2 view - please evaluate for spondylo thesis, b/l pars defect and angular stabilit y, DDD, lumbosac ral transiti onal segment 2024 025 [email or web address] [facility] ([facility]), [address] , [place], [address], 10/10/2024 10:07:45 Medication Orders hydrocod one 5 mg-aceta minophen 325 mg tablet 2024 025 [facility] [id number], [address] [place] [address], [id number], 12/14/2024 12:37:30 hydrocod one 5 mg-aceta minophen 325 mg tablet 2024 025 [facility] [id number], [address] [place] [address], [id number], 10/05/2024 14:21:30 Patient TargetsNo targets recorded. Patient InstructionsNo instructions recorded. Reason for Referral Neurological Surgeon Referra l for Postprocedural state finding patient had SCS implanted by an outside physician in 2023.2 thoracic lead SCS implant that is positional. please eval for potential paddle lead candidate Referring Physician: Roberto Vanessa, Pain Management, Encounter Date: 12/14/2024 Results Created Date Observation Date Name Description Value Unit Range Abnormal Flag Note LastModifiedBy Organization Detail LastModifiedTime 09/08/19 25 09/07/2024 DRUG SCREE N 16 W/CON F, WB note Unles s other marsh noted testi ng perfo rmed at: [facility] [address] [place] [address] [phone] Federico tirado MD CLIA: [id number] Not Available [facility] (Lab Registration) [address] [place], [address], 09/15/2024 09:13:58 09/08/19 25 09/15/2024 DRUG SCREE N 16 W/CON F, WB tramadol, ia Negati ve NG/mL cutoff :50 Not Available [facility] (Lab Registration) [address] [place], [address], 09/15/2024 09:13:58 09/08/19 25 09/15/2024 DRUG SCREE N 16 W/CON F, WB meperidine, ia Negati ve NG/mL cutoff :100 Not Available [facility] (Lab Registration) [address] [place], [address], 09/15/2024 09:13:58 09/08/19 25 09/15/2024 DRUG SCREE N 16 W/CON F, WB amphetamines , ia Negati ve NG/mL cutoff :50 Not Available [facility] (Lab Registration) [address] [place], [address], 09/15/2024 09:13:58 09/08/19 25 09/15/2024 DRUG SCREE N 16 W/CON F, WB gabapentin, ia Negati ve ug/mL cutoff :1.0 Not Available [facility] (Lab Registration) [address], [place], [address], 09/15/2024 09:13:58 09/08/1909/15/2024 DRUG SCREE N 16 W/CON F, WB carisoprodol , ia Negati ve ug/mL cutoff :0.5 This test was devel oped and its perfo rmanc e livia cteri stics deter mined by [facility]. It has not been clear ed or appro stephanie by the Food and Drug Admin istra tion. Perfo rmed at: [facility] [address] [place], [place] [id number] 292 Lab Direc tor: Ashlee uribe [facility] , Phone : [phone] Not Available [facility] (Lab Registration) [address], [place], [address], 09/15/2024 09:13:58 09/08/1909/15/2024 DRUG SCREE N 16 W/CON F, WB buprenorphin e, ia Negati ve NG/mL cutoff :1.0 Not Available [facility] (Lab Registration) [address] [place], [address], 09/15/2024 09:13:58 09/08/1909/15/2024 DRUG SCREE N 16 W/CON F, WB fentanyl, ia Negati ve NG/mL cutoff :1.0 Not Available [facility] (Lab Registration) [address] [place], [address], 09/15/2024 09:13:58 09/08/19 09/15/2024 DRUG SCREE N 16 W/CON F, WB opiates blood Negati ve NG/mL cutoff :5 Not Available [facility] (Lab Registration) [address] [place], [address], 09/15/2024 09:13:58 09/08/19 25 09/15/2024 DRUG SCREE N 16 W/CON F, WB oxycodone, unconjugated Negati ve NG/mL cutoff :5 Not Available [facility] (Lab Registration) [address] [place], [address], 09/15/2024 09:13:58 09/08/19 25 09/15/2024 DRUG SCREE N 16 W/CON F, WB cocaine, blood Negati ve NG/mL cutoff :25 Not Available [facility] (Lab Registration) [address] [place], [address], 09/15/2024 09:13:58 09/08/19 25 09/15/2024 DRUG SCREE N 16 W/CON F, WB benzodiazepi ne, blood Negati ve NG/mL cutoff :20 Not Available [facility] (Lab Registration) [address] [place], [address], 09/15/2024 09:13:58 09/08/19 25 09/15/2024 DRUG SCREE N 16 W/CON F, WB THC (cannabinoid s), blood ++POSI TIVE++ NG/mL cutoff :5 delta Not Available [facility] (Lab Registration) [address] [place], [address], 09/15/2024 09:13:58 09/08/19 25 09/15/2024 DRUG SCREE N 16 W/CON F, WB barbiturates , blood Negati ve ug/mL cutoff :0.1 Not Available [facility] (Lab Registration) [address] [place], [address], 09/15/2024 09:13:58 09/08/19 25 09/15/2024 DRUG SCREE N 16 W/CON F, WB methadone, blood Negati ve NG/mL cutoff :25 Not Available [facility] (Lab Registration) [address] [place], [address], 09/15/2024 09:13:58 09/08/19 25 09/15/2024 DRUG SCREE N 16 W/CON F, WB phencyclidin e, blood Negati ve NG/mL cutoff :8 Not Available [facility] (Lab Registration) [address] [place], [address], 09/15/2024 09:13:58 09/08/19 25 09/15/2024 DRUG SCREE N 16 W/CON F, WB propoxyphene , blood Negati ve NG/mL cutoff :50 Not Available [facility] (Lab Registration) [address] [place], [address], 09/15/2024 09:13:58 09/29/19 25 09/28/2024 DRUG SCREE N 16 W/CON F, WB note Unles s other marsh noted testi ng perfo rmed at: [facility] [address] [place] [address] [phone] Federico tirado MD CLIA: [id number] Not Available [facility] (Lab Registration) [address] [place], [address], 10/04/2024 15:12:14 09/29/19 25 10/04/2024 DRUG SCREE N 16 W/CON F, WB tramadol, ia Negati ve NG/mL cutoff :50 Not Available [facility] (Lab Registration) [address] [place], [address], 10/04/2024 15:12:14 09/29/19 25 10/04/2024 DRUG SCREE N 16 W/CON F, WB meperidine, ia Negati ve NG/mL cutoff :100 Not Available [facility] (Lab Registration) [address] [place], [address], 10/04/2024 15:12:14 09/29/19 25 10/04/2024 DRUG SCREE N 16 W/CON F, WB amphetamines , ia Negati ve NG/mL cutoff :50 Not Available [facility] (Lab Registration) [address] [place], [address], 10/04/2024 15:12:14 09/29/19 25 10/04/2024 DRUG SCREE N 16 W/CON F, WB gabapentin, ia Negati ve ug/mL cutoff :1.0 Not Available [facility] (Lab Registration) [address] [place], [address], 10/04/2024 15:12:14 09/29/19 25 10/04/2024 DRUG SCREE N 16 W/CON F, WB carisoprodol , ia Negati ve ug/mL cutoff :0.5 This test was devel oped and its perfo rmanc e livia cteri stics deter mined by [facility]. It has not been clear ed or appro stephanie by the Food and Drug Admin istra tion. Perfo rmed at: [facility] [address] [place], [place] [address] Lab Direc tor: Ashlee uribe [facility] , Phone : [phone] Not Available [facility] (Lab Registration) [address] [place], [address], 10/04/2024 15:12:14 09/29/19 25 10/04/2024 DRUG SCREE N 16 W/CON F, WB buprenorphin e, ia Negati ve NG/mL cutoff :1.0 Not Available [facility] (Lab Registration) [address] [place], [address], 10/04/2024 15:12:14 09/29/19 25 10/04/2024 DRUG SCREE N 16 W/CON F, WB fentanyl, ia Negati ve NG/mL cutoff :1.0 Not Available [facility] (Lab Registration) [address] [place], [address], 10/04/2024 15:12:14 09/29/19 25 10/04/2024 DRUG SCREE N 16 W/CON F, WB opiates blood Negati ve NG/mL cutoff :5 Not Available [facility] (Lab Registration) [address] [place], [address], 10/04/2024 15:12:14 09/29/19 25 10/04/2024 DRUG SCREE N 16 W/CON F, WB oxycodone, unconjugated Negati ve NG/mL cutoff :5 Not Available [facility] (Lab Registration) [address] [place], [address], 10/04/2024 15:12:14 09/29/19 25 10/04/2024 DRUG SCREE N 16 W/CON F, WB cocaine, blood Negati ve NG/mL cutoff :25 Not Available [facility] (Lab Registration) [address] [place], [address], 10/04/2024 15:12:14 09/29/19 25 10/04/2024 DRUG SCREE N 16 W/CON F, WB benzodiazepi ne, blood Negati ve NG/mL cutoff :20 Not Available [facility] (Lab Registration) [address] [place], [address], 10/04/2024 15:12:14 09/29/19 25 10/04/2024 DRUG SCREE N 16 W/CON F, WB THC (cannabinoid s), blood Negati ve NG/mL cutoff :5 Not Available [facility] (Lab Registration) [address] [place], [address], 10/04/2024 15:12:14 09/29/19 25 10/04/2024 DRUG SCREE N 16 W/CON F, WB barbiturates , blood Negati ve ug/mL cutoff :0.1 Not Available [facility] (Lab Registration) [address] [place], [address], 10/04/2024 15:12:14 09/29/19 25 10/04/2024 DRUG SCREE N 16 W/CON F, WB methadone, blood Negati ve NG/mL cutoff :25 Not Available [facility] (Lab Registration) [address] [place], [address], 10/04/2024 15:12:14 09/29/19 25 10/04/2024 DRUG SCREE N 16 W/CON F, WB phencyclidin e, blood Negati ve NG/mL cutoff :8 Not Available [facility] (Lab Registration) [address] [place], [address], 10/04/2024 15:12:14 09/29/19 25 10/04/2024 DRUG SCREE N 16 W/CON F, WB propoxyphene , blood Negati ve NG/mL cutoff :50 Not Available [facility] (Lab Registration) [address] [place], [address], 10/04/2024 15:12:14 09/29/19 25 09/28/2024 XR, lumba r spine No observ ation record ed. [email or web address] [facility] (Radiology) [address] [place], [address], 10/02/2024 15:19:25 09/29/19 25 09/28/2024 XR, lumba r spine [facility] [address] [place] [address] Phone: Fax: Name: STEPHANIE SAXENA TTE Exam Date: 025 : [birth year] Age 74 years Gender : F Access ion: [id number] Physic padmini: CHENG VANESSA Facili ty: [facility] Facili ty HSV: Outpat ient Exam: LUMBAR 5V EXAM: XR LUMBAR SPINE 5 VIEWS HISTOR Y: DDD. COMPAR DEVANTE: None. FINDIN GS: AP and latera l views includ ing flexio n and extens ion latera l views of the lumbar spine demons trate normal alignm ent with no eviden ce of a fractu re or other acute osseou s abnorm ality. There is no sublux ation with flexio n or extens ion. Interv ertebr al disc space narrow ing and endpla te osteop hyte format ion throug hout the lumbar spine is indica tive of degene rative disc diseas e. Degene rative facet arthro sis is also noted throug hout the lumbar spine. Postop erativ e change s from instru mented lumbos acral spinal fusion are presen t at L5-S1 with bilate ral pedicl e screws and vertic al rods. Interb linda graft is presen t. Neural stimul ator device is presen t. IMPRES RICARDO: Multil evel lumbar spondy losis. Electr onical ly signed by: Leonel Jaquez MD 2024 04:41 PM EDT RP Workst ation: [id number] Dictat ed By: Leonel Jaquez Transc ribed By: Transc ribed On: 025 1:01 PM Electr onical ly signed by: Leonel Jaquez 025 Thank you for referr STEPHANIE Handley TTE to [facility]. Legall y authen ticate d by LEVON SALEEM MD 2024-09-28 13:01: 19 CC'ed Logic: Orderi ng Provid er: OTF Gilmore CC Provid er: STEVEN Garzon Attend ing Provid er: OTF Gilmore Referr ing Provid er: OTF Gilmore Admitt ing Provid er: OTF Gilmore [email or web address] [facility] (Radiology) [address] [place] [address] [place], [address], 10/02/2024 15:05:55 Result Notes Documentation Provider Name and Address Organization Details Recorded Time Xr, Lumbar Spine : [address] [place] [address] Name: DORA SAXENA Exam Date: 09/28/2024 : 1950 Age 74 years Gender: F Physician: ROBERTO VANESSA Facility: [facility] Facility HSV: Outpatient Exam: LUMBAR 5V EXAM: XR LUMBAR SPINE 5 VIEWS HISTORY: DDD. COMPARISON: None. FINDINGS: AP and lateral views including flexion and extension lateral views of the lumbar spine demonstrate normal alignment with no evidence of a fracture or other acute osseous abnormality. There is no subluxation with flexion or extension. Intervertebral disc space narrowing and endplate osteophyte formation throughout the lumbar spine is indicative of degenerative disc disease. Degenerative facet arthrosis is also noted throughout the lumbar spine. Postoperative changes from instrumented lumbosacral spinal fusion are present at L5-S1 with bilateral pedicle screws and vertical rods. Interbody graft is present. Neural stimulator device is present. IMPRESSION: Multilevel lumbar spondylosis. Electronically signed by: Leonel Jaquez MD 09/28/2024 04:41 PM EDT RP Dictated By: Leonel Jaquez Transcribed By: Transcribed On: 09/28/2024 1:01 PM Electronically signed by: Leonel Jaquez 09/28/2024 Thank you for referring DORA SAXENA to [facility]. Legally authenticated by LEVON SALEEM MD 2024-09-28 13:01:19 CC'ed Logic: Ordering Provider: OTF SCHMITT Provider: STEVEN Garzon Attending Provider: OTF VARGAS Referring Provider: OTF VARGAS Admitting Provider: NAOMI Oreilly IMAN [facility] & [place] 10/02/2024 15:05:55 Problems Name Problem SNOMED Code Status Onset Date Resolution Date Notes Provider Name and Address Organization Details Recorded Time Severe obesity 6997502570858 4 Active 2024 ROBERTO VANESSA DO [address] [place] [address], [address], NAOMI VALERIO [facility] & [place] 16:10:48 Chronic pain syndrome 511713609 Active 2024 ROBERTO VANESSA DO [address] [place], [address], NAOMI VALERIO [facility] & [place] 16:10:49 Postprocedu [facility] state finding 169837206 Active 2024 [address] VANESSA [address], [place], [address], [place] - [place] & [place] 5 16:10:50 Spinal stenosis of lumbar region 44507175 Active 2024 ROBERTO VANESSA [address], [place], [place], [address] [place] [address] 1, [place] & [place] 5 16:10:50 Post-cristo ctomy syndrome 89621343 Active 2024 ROBERTO VANESSA [address], [place], [address] [place] [address] 1, [place] [facility] & [place] 5 16:10:57 Intercostal neuralgia 637122324 Active 2024 ROBERTO VANESSA [address], [address] [place] [address] 1, [place] [facility] - [facility] & [place] 5 16:11:34 Pain of intercostal space 682336425 Active 2024 ROBERTO VANESSA [address], [place], [address] [place] [address] 1, [place] [facility] - [facility] & [place] 5 16:11:35 Lumbar spondylosis 312759402 Active 2024 ROBERTO VANESSA [address], [place], [address] [place] [address] 1, [place] [facility] - [facility] & [place] 5 12:00:35 Inflammatio n of sacroiliac joint 34467848 Active 2024 ROBERTO VANESSA [address], [place], [address] [place] [address] 1, [place] [facility] - [facility] & [place] 14:13:36 Problem Notes None recorded. Procedures Surgical History Date Name Laterality Status Provider Name and Address Organization Details Recorded Time 12/25/19 18 completed Nelly SALGADO - [facility] - [facility] & [place] 09/07/2024 11:28:15 10/25/19 18 Date of Last Colonoscopy completed Nelly SALGADO - [place] - [place] & [place] 09/07/2024 11:28:15 06/21/19 18 EGD completed Nelly Brown [place] - [facility] - [facility] & [place] 09/07/2024 11:28:30 06/21/19 18 Colonoscopy completed Nelly Duran [place] - [facility] & [place] 09/07/2024 11:28:30 06/21/19 12 Neurosurgery completed Nelly Brown [place] - [facility] - [facility] & [place] 09/07/2024 11:28:30 06/21/19 06 Abdominal Surgery completed Nellyrodger Duran [place] - [facility] - [facility] & [place] 09/07/2024 11:28:30 06/21/19 06 Gastrointestinal Surgery completed Nellyrodger Duran [place] - [facility] - [facility] & [place] 09/07/2024 11:28:30 06/21/18 95 Breast Surgery completed Nelly Duran [place] - [facility] - [facility] & [place] 09/07/2024 11:28:30 06/21/18 94 Other completed Nelly Brown [place] - [facility] & [place] 09/07/2024 11:28:30 06/21/18 94 Hand Bander Surgery completed Nelly [place]an [place] - [place] - [facility] & [place] 09/07/2024 11:28:30 06/21/18 73 Other completed Nelly Brown [place] - [facility] - [facility] & [place] 09/07/2024 11:28:30 06/21/18 61 Appendectomy completed Nelly Duran [place] - [facility] & [place] 09/07/2024 11:28:30 Imaging Results None recorded. Procedure Notes None recorded. Medical Equipment None Reported. Allergies Allergen ID Allergen Name Allergen Category Reaction Reaction Severity Criticality Documentation Date Start Date Code Code System Note Provider Name and Address Organization Details Recorded Time 033876 tramadol medicatio n hallucina tions severe Not available 09/07/2024 49308 RxNorm Nelly jacobs, [place] - [facility] - [facility] & [place] 5 11:28:11 025277 Zanaflex medicatio n anaphylax is confusion moderate moderate Not available 11/06/2024 63477 6 RxNorm Nelly Duran null, [place] - [facility] - [facility] & [place] 05/19/202 5 15:28:00 Medications Name Sig Start Date Stop Date Status Note LastModified by Organization Details LastModified Time semaglutide 0.5mg/0.5ml injectable Inject 0.25mL (0.25mg=25 units) subcutaneou sly once weekly for four (4) weeks. active Not Available Not Available No t Available hydrocodone 5 mg-acetamino phen 325 mg tablet Take 1 tablet every 12 hours by oral route as directed for 30 days, for severe pain. 2024 active Not Available Not Available Not Avai lable Sure Comfort Insulin Syringe 0.5 mL 31 gauge x 11/03 USE DIRECTED active Not Available Not Available No t Available Vitals Date Recorded Body weight Body temperature Oxygen saturation Oxygen saturation in Arterial blood by Pulse oximetry Heart rate Systolic And Diastolic Provider Name and Address Organization Details Last Updated DateTime 5 49349.8 6 g 97.3 [degF] 99 % 99 % 71 /min 157/96 mm[Hg] [facility] & [place] 5 11:27:08 Date Recorded Body weight Body temperature Oxygen saturation Oxygen saturation in Arterial blood by Pulse oximetry Heart rate Systolic And Diastolic Provider Name and Address Organization Details Last Updated DateTime 5 02727.1 4 g 98.5 [degF] 99 % 99 % 75 /min 141/87 mm[Hg] [facility] & [place] 5 11:58:32 Date Recorded Body weight Body temperature Oxygen saturation Oxygen saturation in Arterial blood by Pulse oximetry Heart rate Systolic And Diastolic Provider Name and Address Organization Details Last Updated DateTime 5 04096.1 4 g 97.2 [degF] 99 % 99 % 68 /min 136/84 mm[Hg] [facility] & [place] 5 13:51:05 Date Recorded Body weight Body temperature Oxygen saturation Oxygen saturation in Arterial blood by Pulse oximetry Heart rate Systolic And Diastolic Provider Name and Address Organization Details Last Updated DateTime 5 13026.1 4 g 97 [degF] 95 % 95 % 69 /min 130/84 mm[Hg] [facility] & [place] 5 15:27:43 Date Recorded Body weight Body temperature Oxygen saturation Oxygen saturation in Arterial blood by Pulse oximetry Heart rate Systolic And Diastolic Provider Name and Address Organization Details Last Updated DateTime 5 16907.1 4 g 96.8 [degF] 97 % 97 % 71 /min 134/89 mm[Hg] Nelly SALGADO [facility] & [place] 5 10:57:48 Social History Question Answer Notes LastModified by [email or web address] Details LastModified Time Tobacco Smoking Status Never Smoker Nelly Duran null, NAOMI Montes [facility] & [place] 09/07/2024 11:28:24 Do You Have An Advance Directive? No Information not available 09/07/2024 Are You Blind Or Do You Have Difficulty Seeing? No [email or web address] Information not available 09/07/2024 What Was The Date Of Your Most Recent Tobacco Screening? 09/06/2024 Information not available 09/07/2024 Are You Passively Exposed To Smoke? No Information not available 09/07/2024 Sex: Unknown Functional Status Question Answer Note LastModified by [email or web address] Details LastModified Time Do you use any illicit or recreational drugs? No [email or web address] Information not available 09/07/2024 What is your level of alcohol consumption? None [email or web address] Information not available 09/07/2024 Do you or have you ever used smokeless tobacco? Never used smokeless tobacco [email or web address] Information not available 09/07/2024 What is your exercise level? Occasional [email or web address] Information not available 09/07/2024 Mental Status Question Answer Note LastModified by Organization D etails LastModified Time Do you feel stressed (tense, restless, nervous, or anxious, or unable to sleep at night)? [id number] [email or web address] Information not available 09/07/2024 Family History Relationship Description Onset Age of this Age Resolved Age Notes LastModified by Organization Details LastModified Time Father Disorder of endocrine system pt. added direct ly (09/06) [email or web address] Not available 09/06/2024 12:14:46 Brother Myocardial infarction pt. added direct ly (09/06) [email or web address] Not available 09/06/2024 12:14:59 Brother Heart disease pt. added direct ly (09/06) [email or web address] Not available 09/06/2024 12:15:13 Brother Obesity pt. added direct ly (09/06) [email or web address] Not available 09/06/2024 12:15:43 Brother Hypercholest erolemia pt. added direct ly (09/06) [email or web address] Not available 09/06/2024 12:16:29 Sister Chronic obstructive pulmonary disease pt. added direct ly (09/06) [email or web address] Not available 09/06/2024 12:15:21 Sister Obesity pt. added direct ly (09/06) [email or web address] Not available 09/06/2024 12:15:43 Medical History Condition Response Diabetes Y Obesity Y Vision or Eye Problems Y Arthritis Y Acid Reflux (GERD) Y Back Problems Y GI Problems Y Reflux/GERD Y High Cholesterol Y Spine Problems Y Headaches Y Obstructive Sleep Apnea Y Hypertension Y Gynecological History Statement/Question Response Abnormal Pap N 12/24/2017 Date of Last Colonoscopy 10/24/2017 Date of LMP 08/23/1994 Sexually Active? N Menses Monthly N Age at Menarche 14 Obstetrics History GPAL:G 0 P 0 0 0 0 Past Encounters Encounter ID Performer Location Encounter Start Date Encounter Closed Date Diagnosis/Indication Diagnosis SNOMED-CT Code Diagnosis ICD10 Code Diagnosis Note [id number] ROBERTO VANESSA DO [facility] [place] [facility]- [address] [place] [address] 09/07/2024 11:01:59 09/07/2024 12:40:22 Spinal stenosis of lumbar region 10898530 M48.062 Postproced ural state finding 806073524 Z96.89 Chronic pain syndrome 37 9516779 G89.4 Severe obesity 057565827 1 9104 E66.813 E66.01 Z68.41 Post-carri ectomy syndrome 70098031 M96.1 Pain of in tercostal space 564135286 R07.82 Intercostal neuralgia 24 2572167 G58.8 [id number] ROBERTO VANESSA DO [facility] [place] [facility]- [address] [place] [address] 09/28/2024 11:12:05 09/28/2024 12:09:03 Spinal stenosis of lumbar region 44759210 M48.062 Postproced ural state finding 704907928 Z96.89 Chronic pain syndrome 37 0000117 G89.4 Severe obesity 596915676 1 9104 E66.813 E66.01 Z68.41 Post-carri ectomy syndrome 87419957 M96.1 Pain of in tercostal space 959121030 R07.82 Intercostal neuralgia 24 4681667 G58.8 Lumbar spondylosis 72244 0009 M47.776 [id number] ROBERTO VANESSA DO [facility] [address] [place] [address] 10/05/2024 13:29:00 10/05/2024 14:47:23 Spinal stenosis of lumbar region 12684499 M48.062 Postproced ural state finding 180421723 Z96.89 Chronic pain syndrome 37 9344847 G89.4 Severe obesity 996399146 1 9104 E66.813 E66.01 Z68.41 Post-carri ectomy syndrome 96531231 M96.1 Pain of in tercostal space 534173515 R07.82 Intercostal neuralgia 24 6279812 G58.8 Lumbar spondylosis 65427 0009 M47.896 Inflammati on of sacroiliac joint 90655045 M46.1 [id number] NASRIN GUTIERREZ PA-C [facility] [address] [place] [address] 11/06/2024 15:02:50 11/15/2024 09:15:24 Spinal stenosis of lumbar region 94741936 M48.062 Postproced ural state finding 256941280 Z96.89 Chronic pain syndrome 37 4503274 G89.4 Severe obesity 635860799 1 9104 E66.813 E66.01 Z68.41 Post-carri ectomy syndrome 38808632 M96.1 Pain of in tercostal space 243229563 R07.82 Intercostal neuralgia 24 7756358 G58.8 Lumbar spondylosis 56271 0009 M47.896 Inflammati on of sacroiliac joint 91085223 M46.1 [id number] ROBERTO VANESSA DO [facility] [address] [place] [address] 12/14/2024 10:41:44 12/14/2024 11:39:51 Postprocedural state finding 423445997 Z96.89 Chronic pain syndrome 37 8401959 G89.4 Severe obesity 592398954 1 9104 E66.813 E66.01 Z68.41 Post-carri ectomy syndrome 98206216 M96.1 Pain of in tercostal space 872297603 R07.82 Intercostal neuralgia 24 8566920 G58.8 Inflammati on of sacroiliac joint 77687034 M46.1 Health Concerns Section Related Observation LastModified by Organization Detai ls LastModified Time None Recorded Concern Status LastModified by Organization Details LastModified Time None Recorded Advance Directives Directive N: Payers Insurance Date Sequence Insurance Name Policy Number Policy Thomas Covered Member ID Thomas Member ID Guarantor Name 07/07/2019 1 [place] Dora Saxena [id number] 2 Dora Saxena 06/12/2020 SLIDING FEE SCHEDULE - DISCOUNT Dora Saxena 12/23/2024 1 [place] Dora Saxena [id number] 2 Dora Saxena Notes Date Note Type Note Provider Name and Address Organization Details Recorded Time 5 text/html Patient presented with chronic mid and low back pain for several years. She has an Van SCS which is providing adequate relief of her reffered symptoms in the b/l LE. This was placed in [facility] by Ilan Partida. 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 Nothing makes the pain better. Movement and activity make the pain worse. She was last seen by an [employer] rep one month ago, adjustments were made at that time. Referral: Michelle [facility]ONES[facility]- s/p C4-C6 ACDF in 2011 and s/p L5-S1 transforaminal lumbar interbody fusion in 2018- s/p Van SCS implant with Dr. Ilan Partida at [facility]- DM, Raynaud's, Obesity 09/07/2024: Initial complaint: low back pain and thoracic back pain with referred pain to the bilateral lower extremities on the lateral thighs. She has multiple years of worsening reffered pain in her ribs under her b/l breasts Onset: >10 yearsPain Location: mid back,b/lbreastCourse: progressing over several yearsPain Quality: sharp, dull, deep, tingling, numbness, weakness, throbbing, burningPain Intensity: 8 / 10Aggravating Factors: prolong standing, prolong sitting, leaning backwards, lying flat, riding in cars for long periods, lifting heavy objectsAlleviating Factors: rest, medicationAssociated Symptoms: numbness referring to b/l breast /chest-Patient currently denies saddle anesthesia, bowel/bladder incontinence, worsening/progressive weakness.-Functional Goals of Treatment: Reduce the pain level by 50% or more and restore function/mobility/quality of life.Current Medication:Opioids: NoneNSAIDS: NoneMuscle Relaxers:NoneOthers: LyricaPrevious Non-Interventional Treatment:- heat/ice, NSAIDS, TENS unit, lidocaine patch, chiropractor, PT, HEPInterventions/Consults :-Neurosurgery: Cervical fusion, Lumbar fusion-Orthopedics: right Knee arthroscopy and meniscal repair-Interventional pain: SCS-Podiatry: noneSmoking: noDiabetes: DM2A1C: 5.7 - 6Anticoagulation: NoneAntiplatelets: NoneWork Status: unemployed ROBERTO VANESSA, DO [address] [facility], [place], [id number] 09/07/2024 16:13:21 5 text/html Patient presented with chronic mid and low back pain for several years. She has an Van SCS which is providing adequate relief of her reffered symptoms in the b/l LE. This was placed in [facility] spine by Ilan Partida. 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 Ilan Partida at [facility] pain [facility] spine- DM, Raynaud's, Obesity Interval History 09/28/2024: Patient presents today for f/u s/p right Intercostal nerve injection. Patient is reported > 95% in their pain relief after the injection. Patient has been able to perform more ADLs, activities, sleep better, and be in a better mood because they have less pain. The relief she experience lasted 5 days only. The pain has returned. She is also reporting more low back axial pain around where her prior back surgery was done. She also mentioned that her SCS never really covered her LBP and has continued to have moderate to severe pain at times. The SCS works great for her referred pain into her b/l LE's. She is wanting to look into options to help with her ongoing to lumbar spine pain. Aggravating Factors include: prolong standing, prolong sitting, leaning backwards, lying flat, riding in cars for long periods, twisting. Alleviating Factor is nothing. Her low back pain is 9/10. Patient currently denies saddle anesthesia, bowel/bladder incontinence, worsening/progressive weakness. Functional Goals of Treatment: Reduce the pain level by 50% or more and restore function/mobility/quality of life. Previous Injections with [facility]09/18/24: Right T4-T6 with ultrasound and fluoroscopic imagin% pain relief x 5 days 09/07/2024: Initial complaint: low back pain and thoracic back pain with referred pain to the bilateral lower extremities on the lateral thighs. She has multiple years of worsening reffered pain in her ribs under her b/l breasts Onset: >10 yearsPain Location: mid back,b/lbreastCourse: progressing over several yearsPain Quality: sharp, dull, deep, tingling, numbness, weakness, throbbing, burningAggravating Factors: prolong standing, prolong sitting, leaning backwards, lying flat, riding in cars for long periods, lifting heavy objectsAlleviating Factors: rest, medicationAssociated Symptoms: numbness referring to b/l breast /chestCurrent Medication:Opioids: NoneNSAIDS: NoneMuscle Relaxers:NoneOthers: LyricaPrevious Non-Interventional Treatment:- heat/ice, NSAIDS, TENS unit, lidocaine patch, chiropractor, PT, HEPInterventions/Consults :-Neurosurgery: Cervical fusion, Lumbar fusion-Orthopedics: right Knee arthroscopy and meniscal repair-Interventional pain: SCS-Podiatry: noneSmoking: noDiabetes: DM2A1C: 5.7 - 6Anticoagulation: NoneAntiplatelets: NoneWork Status: unemployed ROBERTO VANESSA, DO [address] [facility], [place], [address], [facility] & [place] 09/28/2024 16:25:43 5 text/html Patient presented with chronic mid and low back pain for several years. She has an Van SCS which is providing adequate relief of her reffered symptoms in the b/l LE. This was placed in [facility] spine by Ilan Partida. 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 She takes Lyrica Rx by her PCP Referral: Michelle JONES-[facility]- s/p C4-C6 ACDF in 2011 and s/p L5-S1 transforaminal lumbar interbody fusion in 2018- s/p Van SCS implant with Dr. Ilan Partida at [facility] spine- DM, Raynaud's, Obesity Interval History 10/05/2024:Patient presents today for f/u to discuss her ongoing low back pain and follow up on her repeat blood draw. She is wanting to get back to work as a nurse and has trouble standing for long periods of time and walking longer distances bc of her pain. Today she is reporting chronic lower back pain localized to the low back/lumbar spine with referred symptoms into their B/L hips Onset: >3 years Pain Location: lower back, b/lhip(s) Course: progressing over several years Pain Quality: sharp, dull, referring, achy, deep, tingling, throbbing Pain Intensity: 9 / 10 Aggravating Factors: walking, prolong standing, prolong sitting, long car rides, leaning forward, standing from seated position Alleviating Factors: , nothing Associated Symptoms: nonePatient currently denies saddle anesthesia, bowel/bladder incontinence, worsening/progressive weakness.Functional Goals of Treatment: Reduce the pain level by 50% or more and restore function/mobility/quality of life. Previous Injections with [facility]3/: Right T4-T6 with ultrasound and fluoroscopic imagin% pain relief x 5 days 09/07/2024: Initial complaint: low back pain and thoracic back pain with referred pain to the bilateral lower extremities on the lateral thighs. She has multiple years of worsening reffered pain in her ribs under her b/l breastsOnset: >10 yearsPain Location: mid back,b/lbreastCourse: progressing over several yearsPain Quality: sharp, dull, deep, tingling, numbness, weakness, throbbing, burningAggravating Factors: prolong standing, prolong sitting, leaning backwards, lying flat, riding in cars for long periods, lifting heavy objectsAlleviating Factors: rest, medicationAssociated Symptoms: numbness referring to b/l breast /chestCurrent Medication:Opioids: NoneNSAIDS: NoneMuscle Relaxers:NoneOthers: LyricaPrevious Non-Interventional Treatment:- heat/ice, NSAIDS, TENS unit, lidocaine patch, chiropractor, PT, HEPInterventions/Consults :-Neurosurgery: Cervical fusion, Lumbar fusion-Orthopedics: right Knee arthroscopy and meniscal repair-Interventional pain: SCS-Podiatry: noneSmoking: noDiabetes: DM2A1C: 5.7 - 6Anticoagulation: NoneAntiplatelets: NoneWork Status: unemployed ROBERTO VANESSA, DO [address], [place], [address], [place] [facility] [place] 10/05/2024 15:38:34 5 text/html Patient presented with chronic mid and low back pain for several years. She has an Van SCS which is providing adequate relief of her reffered symptoms in the b/l LE. This was placed in [facility] pain [facility] spine by Ilan Partida. 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 She takes Lyrica Rx by her PCP Referral: Michelle JONES-[facility] - S/p C4-C6 ACDF in 2011 and s/p L5-S1 transforaminal lumbar interbody fusion in 2018- S/p Van SCS implant with Dr. Ilan Partida at [facility] spine- DM, Raynaud's, Obesity Interval History 11/06/2024:Patient presents today for a medication refill. She states her current regimen is successful in decreasing her pain without adverse side effects. She now has her pain under control so she is able to go back to work. She has also been utilizing a lumbosacral brace with good benefit. She no longer has pain when doing her dishes. She is overall happy with her pain management thus far. Her pain level today is 4/10. et: >3 yearsPain Location: lower back, b/lhip(s)Course: progressing over several yearsPain Quality: sharp, dull, referring, achy, deep, tingling, throbbingPain Intensity: 9 / 10Aggravating Factors: walking, prolong standing, prolong sitting, long car rides, leaning forward, standing from seated positionAlleviating Factors: , nothingAssociated Symptoms: nonePatient currently denies saddle anesthesia, bowel/bladder incontinence, worsening/progressive weakness.Functional Goals of Treatment: Reduce the pain level by 50% or more and restore function/mobility/quality of life. Previous Injections with [facility]3/31/25: Right T4-T6 with ultrasound and fluoroscopic imagin% pain relief x 5 days 09/07/2024: Initial complaint: low back pain and thoracic back pain with referred pain to the bilateral lower extremities on the lateral thighs. She has multiple years of worsening reffered pain in her ribs under her b/l breastsOnset: >10 yearsPain Location: mid back,b/lbreastCourse: progressing over several yearsPain Quality: sharp, dull, deep, tingling, numbness, weakness, throbbing, burningAggravating Factors: prolong standing, prolong sitting, leaning backwards, lying flat, riding in cars for long periods, lifting heavy objectsAlleviating Factors: rest, medicationAssociated Symptoms: numbness referring to b/l breast /chestCurrent Medication:Opioids: NoneNSAIDS: NoneMuscle Relaxers:NoneOthers: LyricaPrevious Non-Interventional Treatment:- heat/ice, NSAIDS, TENS unit, lidocaine patch, chiropractor, PT, HEPInterventions/Consults :-Neurosurgery: Cervical fusion, Lumbar fusion-Orthopedics: right Knee arthroscopy and meniscal repair-Interventional pain: SCS-Podiatry: noneSmoking: noDiabetes: DM2A1C: 5.7 - 6Anticoagulation: NoneAntiplatelets: NoneWork Status: unemployed NASRIN GUTIERREZ PA-C [address] [place] [address], [id number], [facility] & [place] 11/07/2024 12:34:26 5 text/html Patient presented with chronic mid and low back pain for several years. She has an Van SCS which is providing adequate relief of her reffered symptoms in the b/l LE. This was placed in [facility] pain [facility] spine by Ilan Partida. 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 She takes Lyrica Rx by her PCP Referral: Michelle JONES-[facility]- S/p C4-C6 ACDF in 2011 and s/p L5-S1 transforaminal lumbar interbody fusion in 2017- S/p Van SCS implant with Dr. Ilan Partida at [facility] spine- DM, Raynaud's, Obesity Interval History 12/14/2024: Patient is presenting for medication refill and re-evaluation for their ongoing chronic LBP. Patient reports minimal to no side effects on their current medication. Patient reports less than 50% improvement in their pain relief today. She is reporting that the medication will last only 2-3 hours. She was supposed to start a job, but bc of the increasing pain she was unable to start. She is wanting to start working again so she can afford to visit her granddaughter and be in a better financial position. They keep their medication in a safe place.She has had a stressful few months that are not getting easier. She denies suicidal Ideation and has some support that she can rely on. She is wanting to find some relief so she can work and have quality of life. The patient presented with chronic lower back pain localized to the low back/lumbar spine with referred symptoms into their B/L hips and sometimes down their lower extremities. Onset: >3 years Pain Location: lower back, b/lhip(s) Course: progressing over several years Pain Quality: sharp, dull, referring, achy, deep, tingling, throbbing Pain Intensity: 10 / 10 Aggravating Factors: walking, prolong standing, prolong sitting, long car rides, leaning forward, standing from seated position Alleviating Factors: nothing Associated Symptoms: pain referring to b/l hip(s)Patient currently denies saddle anesthesia, bowel/bladder incontinence, worsening/progressive weakness.Functional Goals of Treatment: Reduce the pain level by 50% or more and restore function/mobility/quality of life. Previous Injections with CKPS3/: Right T4-T6 with ultrasound and fluoroscopic imagin% pain relief x 5 days 09/07/2024: Initial complaint: low back pain and thoracic back pain with referred pain to the bilateral lower extremities on the lateral thighs. She has multiple years of worsening reffered pain in her ribs under her b/l breastsOnset: >10 yearsPain Location: mid back,b/lbreastCourse: progressing over several yearsPain Quality: sharp, dull, deep, tingling, numbness, weakness, throbbing, burningAggravating Factors: prolong standing, prolong sitting, leaning backwards, lying flat, riding in cars for long periods, lifting heavy objectsAlleviating Factors: rest, medicationAssociated Symptoms: numbness referring to b/l breast /chestCurrent Medication:Opioids: NoneNSAIDS: NoneMuscle Relaxers:NoneOthers: LyricaPrevious Non-Interventional Treatment:- heat/ice, NSAIDS, TENS unit, lidocaine patch, chiropractor, PT, HEPInterventions/Consults :-Neurosurgery: Cervical fusion, Lumbar fusion-Orthopedics: right Knee arthroscopy and meniscal repair-Interventional pain: SCS-Podiatry: noneSmoking: noDiabetes: DM2A1C: 5.7 - 6Anticoagulation: NoneAntiplatelets: NoneWork Status: unemployed ROBERTO VANESSA, [address], [place], [address], [facility] - [place] - [place] & [place] 12/14/2024 16:21:58 OBGyn Episode No OBEpisode recorded.
--- OUTSIDE RECORDS SUMMARY | 2024-12-27 08:04 | XMS_ITS | Continuity of Care Document ---
Author Organization [place] [facility] [place] New Address [address] [address] Care Team Providers Care Payroll Representative Name Role Phone [facility] Referring Provider MICHELLE BERMAN Primary Care Provider Assessment Encounter Date Assessment Date Assessment LastModified by Organization Details LastModified Time 11/06/2024 11/06/2024 Images reviewed previously Thoracic Xrays: [...] transforaminal lumbar interbody fusion in 2018 - S/p Van SCS implant with Dr. Ilan Partida at [facility] in 2023 -Symptoms in [...] gummi previously. She no longer takes gummies. Not available 11/07/2024 12:32:04 Plan of Treatment Reminders Order Date Submit Date Provider Last Modified By Organization Details Last Modified Time Details Appointments OV EST 15 025 11:30AM SAM VANESSA, DO Not available Not available Not available Lab None record ed. Referral None record ed. Procedures None record ed. Surgeries None record ed. Imaging None record ed. Medication Orders None record ed. Patient TargetsNo targets recorded. Patient Instructions Encounter Date Encounter Id Patient Instructions Last Modified By Organization Details Last Modified Time 11/06/2024 [id number] I have discussed in great detail our potential treatment options which would include a rehabilitative approach to care. This program would include medication management, Physical Therapy, consideration for interventional procedures as appropriate, and lifestyle modification (diet, weight loss, exercise, smoking/tobacco cessation, holistic approach including meditation and yoga). The patient understands and agrees prior to proceeding with this plan. _ __ __ __ __ __ __ __ __ __ __ __ __ __ __ __ __ __ __ __ __ __ __ __ __ __ __ __ _ RECORDS REVIEW: As per clinic policy, we will have the patient sign a release to obtain previous imaging and clinical notes. _ __ __ __ __ __ __ __ __ __ __ __ __ __ __ __ __ __ __ __ __ __ __ __ __ __ __ __ _ PSYCH: Pain affecting Neuro-psych behavior was discussed. Discussed about pain psychological counseling as a part of the multimodal approach to pain treatment. _ __ __ __ __ __ __ __ __ __ __ __ __ __ __ __ __ __ __ __ __ __ __ __ __ __ __ __ _ REHABILITATION: Discussed with the patient the importance of diet, daily physical activity and PT. Discussed with the patient the need to be scheduled for physical therapy since physical therapy will prolong the benefits of the procedure and interventions. Not available 11/07/2024 12:23:19 Reason for Referral None Reported. Problems Name Problem SNOMED Code Status Onset Date Resolution Date Notes Provider Name and Address Organization Details Recorded Time Severe obesity 6585824125926 4 Active 2024 SAM VANESSA [facility], [place], [address], [place] [facility] [place] & [place] 5 16:10:48 Chronic pain syndrome 033938272 Active 2024 SAM VANESSA [address], [place], [address], [place] [facility] [place] & [place] 5 16:10:49 Postprocedu [facility] state finding 776741550 Active 2024 SAM VANESSA [address], [place], [address], [place] [facility] [place] & [place] 5 16:10:50 Spinal stenosis of lumbar region 86355767 Active 2024 SAM VANESSA [address], [place], [address] [place] [address] 1, [place] [facility] [place] & [place] 5 16:10:50 Post-cristo ctomy syndrome 74551027 Active 2024 SAM VANESSA [address], [place], [address] [place] [address] 1, [place] [facility] [place] 5 16:10:57 Intercostal neuralgia 944765068 Active 2024 SAM VANESSA [address], [place], [address], [place] [facility] [place] & [place] 5 16:11:34 Pain of intercostal space 126200360 Active 2024 SAM VANESSA [address], [place], [address] [place] [address] 1, [place] [facility] [place] & [place] 5 16:11:35 Lumbar spondylosis 964017838 Active 2024 SAM VANESSA [address], [place], [address] [place] [address] 1, [place] [facility] [place] & [place] 5 12:00:35 Inflammatio n of sacroiliac joint 08869146 Active 2024 SAM VANESSA [address], [place], [address], [place] [facility] [place] & [place] 14:13:36 Problem Notes None recorded. Procedures Surgical History Date Name Laterality Status Provider Name and Address Organization Details Recorded Time 12/25/19 18 completed Nelly Brown [place] [facility] [place] 09/07/2024 11:28:15 10/25/19 18 Date of Last Colonoscopy completed Nelly Brown [place] [facility] & [place] 09/07/2024 11:28:15 06/21/19 18 EGD completed [place]elly [place] [facility] [place] 09/07/2024 11:28:30 06/21/19 18 Colonoscopy [place]elly [place] [facility] [place] 09/07/2024 11:28:30 06/21/19 12 Neurosurgery [place]elly [place] 09/07/2024 11:28:30 06/21/19 06 Abdominal Surgery [place]elly [place] & [place] 09/07/2024 11:28:30 06/21/19 06 Gastrointestinal Surgery [place]elly [place] [facility] [place] 09/07/2024 11:28:30 06/21/18 95 Breast Surgery [place] Nelly Brown [place] [facility] & [place] 09/07/2024 11:28:30 06/21/18 94 Other completed [place]elly Brown [place] [facility] [place] 09/07/2024 11:28:30 06/21/18 94 Head Batcher Surgery [place] Nelly Brown [place] [facility] & [place] 09/07/2024 11:28:30 06/21/18 73 Other completed [place]elly Brown [place] [facility] [place] 09/07/2024 11:28:30 06/21/18 61 Appendectomy completed Nelly Brown [place] [facility] & [place] 09/07/2024 11:28:30 Imaging Results None recorded. Procedure Notes None recorded. Medical Equipment None Reported. Allergies Allergen ID Allergen Name Allergen Category Reaction Reaction Severity Criticality Documentation Date Start Date Code Code System Note Provider Name and Address Organization Details Recorded Time 876184 tramadol medicatio n hallucina tions severe Not available 09/07/2024 75942 [facility] [place] 5 11:28:11 859437 Zanaflex medicatio n anaphylax is confusion moderate moderate Not available 11/06/2024 28621 6 RxNorm NAOMI Rai [facility] & [place] 5 15:28:00 Medications Name Sig Start Date [...] Insulin Syringe 0.5 mL 31 gauge x /16 USE DIRECTED active Not Available Not Available No t Available Vitals Date Recorded Body weight Body temperature Oxygen saturation Oxygen saturation in Arterial blood by Pulse oximetry Heart rate Systolic And Diastolic Provider Name and Address Organization Details Last Updated DateTime 5 87465.1 4 g 97 [degF] 95 % 95 % 69 /min 130/84 mm[Hg] Nelly Montes [facility] & [place] 5 15:27:43 Social History Question Answer Notes LastModified by OmniPV Details LastModified Time Tobacco Smoking Status Never Smoker [facility] [place] 09/07/2024 11:28:24 Do You Have An Advance Directive? No [email or web address] Information not available 09/07/2024 Are You Blind Or Do You Have Difficulty Seeing? No [email or web address] Information not available 09/07/2024 What Was The Date Of Your Most Recent Tobacco Screening? 09/06/2024 [email or web address] Information not available 09/07/2024 Are You Passively Exposed To Smoke? No [email or web address] Information not available 09/07/2024 Sex: Unknown Functional Status Question Answer Note LastModified by Organizat ion Details LastModified Time Do you use any illicit or recreational drugs? No [email or web address] Information not available 09/07/2024 What is your level of alcohol consumption? None [email or web address] Information not available 09/07/2024 Do you or have you ever used smokeless tobacco? Never used smokeless tobacco [email or web address] Information not available 09/07/2024 What is your exercise level? Occasional [email or web address] Information not available 09/07/2024 Mental Status Question Answer Note LastModified by Organization D etails LastModified Time Do you feel stressed (tense, restless, nervous, or anxious, or unable to sleep at night)? [id number] [email or web address] Information not available 09/07/2024 Family History Relationship [...] Cholesterol Y Spine Problems Y Headaches Y Hypertension Y Obstructive Sleep Apnea Y Gynecological History Statement/Question Response Abnormal Pap N 12/24/2017 Date of Last Colonoscopy 10/24/2017 Date of LMP 08/23/1994 Sexually Active? N Menses Monthly N Age at Menarche 14 Obstetrics History GPAL:G 0 P 0 0 0 0 Past Encounters Encounter ID Performer Location Encounter Start Date Encounter Closed Date Diagnosis/Indication Diagnosis SNOMED-CT Code Diagnosis ICD10 Code Diagnosis Note [id number] NASRIN GUTIERREZ PA-C [facility]- [address] [place] [address] 11/06/2024 15:02:50 11/15/2024 09:15:24 Spinal stenosis of lumbar region 25147209 M48.062 Postproced ural state finding 227756011 Z96.89 Chronic pain syndrome 37 1372759 G89.4 Severe obesity 102389570 1 9104 E66.813 E66.01 Z68.41 Post-carri ectomy syndrome 18637791 M96.1 Pain of in tercostal space 200399204 R07.82 Intercostal neuralgia 24 1823291 G58.8 Lumbar spondylosis 78541 0009 M47.896 Inflammati on of sacroiliac joint 72259146 M46.1 Health Concerns Section Related Observation LastModified by Organization Detai ls LastModified Time None Recorded Concern Status LastModified by Organization Details LastModified Time None Recorded Payers Encounter Date Sequence Insurance Name Policy Number Policy Thomas Covered Member ID Thomas Member ID Guarantor Name 11/06/2024 1 [place] Dora Saxena [id number] Dora Saxena Notes Date Note Type Note Provider Name and Address Organization Details Recorded Time text/html Patient presented with chronic mid and low back pain for several years. She has an Van SCS which is providing adequate relief of her reffered symptoms in the b/l LE. This was placed in [facility] by Ilan Partida. 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 She takes Lyrica Rx by her PCP Referral: Michelle [facility]ONES-[facility] - S/p C4-C6 ACDF in 2011 and s/p L5-S1 transforaminal lumbar interbody fusion in 2018- S/p Van SCS implant with Dr. Ilan Partida at [facility]- DM, Raynaud's, Obesity Interval [...] NoneAntiplatelets: NoneWork Status: unemployed NASRIN GUTIERREZ PA-C [address] [place] [address], [address], [facility] & [place] 11/07/2024 12:34:26 OBGyn Episode No OBEpisode recorded.
--- OUTSIDE RECORDS SUMMARY | 2024-12-27 08:04 | XMS_ITS | Patient Health Record ---
Author Organization UNLISTED FACILITY Address [address] [place] [address] [place] [address] Care Team Providers Care Supervising Nurse Name Role Phone Patt Joseph Primary Care [...] (FN) NSAIDs GI Intolerance Drug Allergy Active Reason For Referral No Information Immunizations Vaccine Route Administration Date Status Comme nts COVID-19 Vaccine Moderna 1st dose Unknown 09/05/2020 Ad ministered COVID-19 Vaccine Moderna 1st dose Unknown 12/30/2020 Ad ministered COVID-19 Vaccine Moderna 1st dose Unknown 12/30/2020 Ad ministered Influenza (Fluzone) High-Dos e (IIV4-HD) (single-dose syringe) Unknown 03/25/2021 Administered Influenza (Fluzone) High-Dos e (IIV4-HD) (single-dose syringe) Unknown 04/17/2022 Administered Influenza (Fluzone) High-Dos e (IIV4-HD) (single-dose syringe) Unknown 03/25/2023 Administered Pneumococcal Conjugate Vacci ne PCV20 (Prevnar 20) Unknown 04/17/2022 Administered Plan Of Treatment No Information Insurance Providers Payer Name Payer Address Payer Phone Subscriber Number Group Number Insured Name Patient Relationship to Insured Coverage Start Date Coverage End Date SUSPENSE PAYER FFS COMMERCIAL DO NOT DELETE, JIM ZEPEDA Self - patient is the insured Medical (General) History Medical History History ICD Code Hypertension Chronic bilateral low back pain Type 2 diabetes Raynaud's syndrome Avitaminosis D Disorder of peripheral nervous system Mixed hyperlipidemia GERD Blurred vision left eye Mild depression Surgical History Surgery Date(Month/Year) tubal ligation Lumbar Fusion 2017 Laparoscopic Gastric Banding hysterectomy Cervical Fusion 2012 appendectomy Hospitalization History Reason Date(Month/Year) hysterectomy childbirth
--- OUTSIDE RECORDS SUMMARY | 2024-12-27 08:04 | XMS_ITS | Encounter Summary ---
Author Organization Healthcare Address [address] [id number] Care Team Providers Care Preparation Room Manager Name Role Phone Jennifer Antonio Michell CHAMBERS Primary Care Provider [phone] Encounter Details Date Type Department Care Team (Late st Contact Info) Description 12/13/2023 Ophth Exam [facility] [address] [place] [address] Ryan Nogueira MD [address] [place], [place] [id number] Social History Tobacco Use Types Packs/Day Years Used Date Smoking Tobacco: Never Passive Smoke Exposure: Never Smokeless Tobacco: Never Alcohol Use Standard Drinks/Week Comments Never 0 (1 standard drink = 0.6 oz pur e alcohol) Comments Unknown Sex and Gender Information Value Date Recorded Sex Assigned at Not on file Legal Sex Female 7:48 PM EDT Gender Identity Not on file Sexual Orientation Not on file documented as of this encounter Functional Status * Calculated C-SSRS Risk Score (Lifetime/Recent) Answer Date of Assessment Author No Risk Indicated 12/15/2023 8:00 AM EDT Shekhar Alarcon RN * Question Answer Date of Assessment Author 1. Wish to be (Past 1 Month) No 024 8:00 AM EDT Shekhar Alarcon RN 2. Non-Specific Active Suici henry Thoughts (Past 1 Month) No 12/15/2023 8:00 AM EDT Shekhar Alarcon RN 6. Suicidal Behavior (Lifetime) No 8:00 AM EDT Shekhar Alarcon RN documented as of this encounter Plan of Treatment Not on file documented as of this encounter Visit Diagnoses Not on filedocumented in this encounter Additional Health Concerns Assessment Noted Time A Body Mass Index follow-up plan has been documented for the patient 12/15/2023 11:08 AM EDT documented as of this encounter Care Teams Preparation Room Manager Relationship Specialty Start Date End Date Jennifer Antonio APRN PCP - General 12/13/23 documented as of this encounter
--- OUTSIDE RECORDS SUMMARY | 2024-12-27 08:04 | XMS_ITS | Clinical Summary ---
Author Organization Healthcare Address [address] [place] [address] Care Team Providers Care Environmental Remediation Specialist Name Role Phone MariselaJennifer raines Michell CHAMBERS Primary Care Provider [phone] Allergies Active Allergy Reactions Criticality Noted Date Comments Nsaids Other - please docum ent in the comment field Low 12/14/2023 GI intolerance Tizanidine Hallucinations Medium 03/21/2014 Tramadol Other - please docum ent in the comment field Medium 12/08/2023 It makes me feel like I have the flu Medications acetaminophen (Tylenol) 500 MG tablet Take 2 tablets (1,000 mg) by mouth every 6 (six) hours if needed for pain or headaches. Active pregabalin (Lyrica) 150 MG capsule Take 1 capsule (150 mg) by mouth 2 (two) times a day. Active lisinopril 20 MG tablet Take 1 tablet (20 mg) by mouth every night. Active Semaglutide-Weight Management 0.5 MG/0.5ML solution auto-injector Inject 0.25 mL under the skin 1 (one) time per week. Wednesdays Active [place]-3 Fatty Acids (OMEGA-3 CF PO) Take 4 capsules by mouth 1 (one) time each day in the morning. Active DULoxetine (Cymbalta) [address] capsule Take 1 capsule (60 mg) by mouth 1 (one) time each day in the morning. Active amLODIPine (Norvasc) 10 MG tablet Take 1 tablet (10 mg) by mouth 1 (one) time each day in the morning. Active pantoprazole (Protonix) 40 MG EC tablet Take 1 tablet (40 mg) by mouth 1 (one) time each day in the morning. Active fluticasone (Flonase) 50 MCG/ACT nasal spray Administer 1 spray into each nostril 1 (one) time each day if needed for rhinitis. Shake gently. Before first use, prime pump. After use, clean tip and replace cap. Active ondansetron ODT (Zofran-ODT) 4 MG disintegrating tablet Take 1 tablet (4 mg) by mouth every 8 (eight) hours if needed for nausea or vomiting. Active Active Problems Problem Noted Date Diagnosed Date Disseminated herpes zoster 12/13/2023 Immunizations Immunization Administration Dates Next Due Influenza, injectable, quadrivalent 03/25/2023,1 ,03/25/2021 Moderna COVID-19 Vaccine (Re d Cap) 12+ years 12/30/2020 Moderna Covid-19 Vaccine 12y +, Chucho Protein, Preservative free 09/22/2023 Pneumococcal 20-yifan Conj Vaccine 04/17/2022 SARS-CoV-2, Unspecified 12/24/2020 Social History Tobacco Use Types Packs/Day Years Used Date Smoking Tobacco: Never Passive Smoke Exposure: Never Smokeless Tobacco: Never Tobacco Cessation:Counseling Given: No Alcohol Use Standard Drinks/Week Comments Never 0 (1 standard drink = 0.6 oz pur e alcohol) Comments No Sex and Gender Information Value Date Recorded Sex Assigned at Not on file Legal Sex Female 7:48 PM EDT Gender Identity Not on file Sexual Orientation Not on file Last Filed Vital Signs Vital Sign Reading Time Taken Comments Blood Pressure 150/90 12/15/2023 8:15 AM EDT Pulse 51 12/15/2023 8:15 AM EDT Temperature 36.7 C (98.1 F) 12/15/2023 8:15 AM EDT Respiratory Rate 18 12/15/2023 8:15 AM EDT Oxygen Saturation 97% 12/15/2023 8:15 AM EDT Inhaled Oxygen Concentration - - Weight 97.1 kg (214 lb) 12/14/2023 1:02 AM EDT Height 162.6 cm (5' 4.02 ) 12/14/2023 1:02 AM ED T Body Mass Index 36.71 12/14/2023 1:02 AM EDT Plan of Treatment Health Maintenance Due Date Last Done Comments [facility]-Bone Density Scan 1952 [facility]-Depression Screening 1950 [facility]-Medicare Annual Wellness (AWV) 1950 [facility]-/Child/Adol SDOH Screenings 1950 [facility]- SDOH Screenings 1970 [facility]-Adult SDOH Screenings 1970 [facility]-DTaP,Tdap,and Td Vaccines (1 - Tdap) 09/22/1971 CT Colonography 1997 Colonoscopy 1997 FIT-DNA 1997 FIT 1997 FOBT 1997 Sigmoidoscopy 1997 [facility]-Colorectal Cancer Screening 1997 [facility]-Breast Cancer Screening 2002 [facility]-Zoster Vaccines (1 of 2) 2002 [id number] Vaccine ( season) 2024 09/22/2023, 12/30/2020, 12/24/2020, Additional history exists [facility]-Influenza Vaccine (#1) 02/19/202503/25, 04/17/2022, 03/25/2021 [facility]-RSV Vaccine: 60+ Years or (1 - 1-dose 75+ series) 09/22/2027 [facility]-Pneumococcal Vaccine: 50+ Years Completed 04/17/2022 [facility]-Hepatitis C Screening Completed 12/13/2023, [facility]-Obesity Intervention Completed 12/13/2023 [facility]-Diabetes: Hemoglobin A1C Discontinued 12/14/2023, 06/09/2023, 08/02/2022, Additional history exists HPV Vaccines Aged Out No longer eligi ble based on patient's age to complete this topic [facility]-HIB Vaccines Aged Out No longer e ligible based on patient's age to complete this topic [facility]-Hepatitis A Vaccines Aged Out No longer eligible based on patient's age to complete this topic [facility]-IPV Vaccines Aged Out No longer e ligible based on patient's age to complete this topic [facility]-Rotavirus Vaccines Aged Out No lo nger eligible based on patient's age to complete this topic Procedures Procedure Name Priority Date/Time Associated Diagnosis Comments HEMOGLOBIN A1C Routine 12/14/2023 1:40 AM EDT HEPATITIS C ANTIBODY - ED W/REFLEX TO HCV QUANT PCR STAT 12/13/2023 11:56 PM EDT from Last 3 Months or Most Recently Relevant to Health Maintenance Results * (ABNORMAL) Hemoglobin A1c (12/14/2023 1:40 AM EDT) Hemoglobin A1c 6.0(H) <5.7 % 12/14/2023 3:34 AM EDT [facility] Blood Venous blood specimen / Unknown Venipuncture / Unknown 12/14/2023 1:40 AM EDT 12/14/2023 2:10 AM EDT Narrative [facility] - 12/14/2023 3:34 AM EDT HA1C Interpretive Data: Diagnosis of Diabetes: Diabetic > or = 6.5% Pre-diabetic 5.7 to 6.4% Non-diabetic < or = 5.6% Glycemic Targets for Type I and Type II Diabetics: Non- Adults <7.0% Adults <6.0% Children and Adolescents <7.5% Source: [place] [employer]. Standards of medical care in diabetes,2017. Diabetes Care.2017:40 (suppl 1):S1-S135. HbA1c assay performed by an ion-exchange chromatography method that is certified traceable to the DCCT. us Anamika Aguilera MD LAB BLOOD ORDERABLES Final Res ult Performing Organization Address City/[facility]/ZIP Co de Phone Number [facility] [address] [place] [phone] * Hepatitis C Antibody - ED (12/13/2023 11:56 PM EDT) Hepatitis C Antibody Negative Negative 12/14/2023 12:59 AM EDT [facility] Blood Venous blood specimen / Unknown Venipuncture / Unknown 12/13/2023 11:56 PM EDT 12/14/2023 12:17 AM EDT us Kalyan Ceron MD LAB BLOOD ORDERABLES Final Res ult [facility] [address] [place] [address] from Last 3 Months or Most Recently Relevant to Health Maintenance Insurance MEDICARE Advance Directives * Full Code (Latest Code Status on File) Date Activated Date Inactivated Comments 12/13/2023 11:33 PM 12/15/2023 2:09 PM Question Answer Comments Patient has decision-making capacity? Yes Care Teams Environmental Remediation Specialist Relationship Specialty Start Date End Date Jennifer Antonio APRN PCP - General 12/13/23
--- OUTSIDE RECORDS SUMMARY | 2024-12-27 08:04 | XMS_ITS | Data Portability ---
Author Organization [place] [facility], [facility] Address [address] [place] [address] Assessment Encounter Date Assessment Date Assessment LastModified by Organization Details LastModified Time 12/15/2016 12/15/2016 Status post TLIF L5-S1. Not available 12/18/2016 13:41:54 03/02/2017 03/02/2017 Status post L5-S1 fusion [email or web address] Not available 03/03/2017 13:44:43 Plan of Treatment Reminders Order Date Submit Date Provider Last Modified By Organization Details Last Modified Time Details Appointments None recorded. Lab None recorded. Referral physical therapist referral - EVALUATE AND TREAT LUMBAR SPINE 2x6 STATUS POST L5-S1 LUMBAR FUSION 11/27/20162016 017 [email or web address] Not available 7 14:50:11 Procedures None recorded. Surgeries None recorded. Imaging MRI, lumbar spine, w/wo contrast - STATUS POST L5-S1 LUMBAR FUSION 11/27/162016 017 [facility], [address] [place], [address], 7 09:29:43 XR, lumbosacral spine, 2 or 3 view 2016 017 [email or web address] In-House Results, For Internal Use Only, Do Not Delete/merge, [id number] 15:37:09 XR, lumbosacral spine, 2 or 3 view 2016 017 [email or web address] In-House Results, For Internal Use Only, Do Not Delete/merge, [id number] 7 07:14:34 Medication Orders Tylenol-Cod eine #3 300 mg-30 mg tablet 2016 017 [email or web address], [address], [place], [place], [id number], 7 14:41:48 Neurontin 300 mg capsule 2016 017 [email or web address] [email or web address], [address], [place], [place], [id number], 7 16:06:41 [place] 7.5 mg-325 mg tablet 2016 017 [email or web address] [id number], [address], [place], [place], [id number], 7 14:08:00 Patient TargetsNo targets recorded. Patient Instructions Encounter Date Encounter Id Patient Instructions Last Modified By Organization Details Last Modified Time 12/15/2016 [id number] 1. Sutures out. 2. Neurontin 300 mg., #120 as prescribed above. 4. [place] 7.5 mg., #120 as prescribed above. Encounter transcribed by: Rita Car Not available 12/18/2016 13:42:39 03/02/2017 [id number] note to return t o work/school - PATIENT TO BE OFF WORK UNTIL 05/24/2017 [email or web address] Not available 03/02/2017 14:41:48 Lumbar spine MRI to rule out stenosis. I will call patient with MRI results [place]. Follow up in 12 weeks. Transcribed by: Anna [email or web address] Not available 03/03/2017 13:45:10 Reason for Referral EVALUATE AND TREAT LUMBAR SP INE 2x6 STATUS POST L5-S1 LUMBAR FUSION 11/27/2016 Referring Physician: Mariela Claudio, Orthopedic Surgery, Encounter Date: 03/02/2017 Results Created Date Observation Date Name Description Value Unit Range Abnormal Flag Note LastModifiedBy Organization Detail LastModifiedTime 11/28/19 17 11/25/2016 MRI, lumba r spine , w/o contr ast Name: LUCIAN SAXENA Phys: JOSEF RICKETTS : 1950 Age: 66 Sex: F Acct: [id number] Loc: 321 P Exam Date: 2016 Status : ADM Jean Unit No: [id number] ORDERI NG PHYSIC ANOOP: JOSEF RICKETTS EXAM# TYPE/E XAM [id number] MRIP/M RI LUMBAR SPINE W/O CONTR RELEVA NT HISTOR Y: LUMBAR STENOS IS LUMBAR MRI Study to evalua te lumbar stenos is in a 66-yea r-old female . Study includ es T11-S1 and compar edward made to a October 22 CT scan. L5-S1 demons trates hernia tion into the left neurof oramin a. This is accomp anied by bony stenos is facet overgr owth which was descri bed on the CT scan. Centra l canal, right neurof oramin a normal . There is mass effect on the left S1 nerve root. Refer axial image 23 series 9 and sagitt al image 8 series 6. L4-5 level demons trates no signif icant canal stenos is. L3-4 level demons trates mild intrad iscal degene rative narrow ing, no signif icant stenos is. L2-3 demons trates some mild endpla te change s. There is some minima l bulge into the right neurof oramin a. Centra l canal and left neurof oramin a spared . L1-2 level demons trates degene rative change s. IMPRES RICARDO: HERNIA TION AND NEURAL FORAMI NAL STENOS IS L5-S1 WOULD EXPLAI N LEFT L5 AND/OR S1 NERVE ROOT IRRITA T[facility]. THE REMAIN SHIRA OF THE EXAM IS NONCON TRIBUT ORY. PAGE 1 Signed Report (LUNA NUED) Name: LUCIAN SAXENA Phys: JOSEF RICKETTS : 1950 Age: 66 Sex: F Acct: [id number] Loc: 321 P Exam Date: 2016 Status : ADM Jean Unit No: [id number] ORDERI NG PHYSIC ANOOP: JOSEF RICKETTS EXAM# TYPE/E XAM [id number] MRIP/M RI LUMBAR SPINE W/O CONTR RELEVA NT HISTOR Y: LUMBAR STENOS IS Workst ation: [id number] REPORT SIGNED IN OTHER VENDOR SYSTEM 2016 Dictat ed By: CLIFFORD JEFFERY II, M.D. CC: JULIEN SANCHEZ IN H; JOSEF RICKETTS Techno logist : HERBERT OVERAL L RT (R) Transc ribed Date/T wilma: 2016 (0817) Transc riptio nist: RADDAD Printe d Date/T wilma: 2016 (0759) PAGE 2 Signed Report [facility] (Imaging) [address] [place], [address], 12/01/2016 11:16:20 03/03/20 17 03/03/2017 MRI, lumba r spine , w/wo contr ast MR L SPINE W/WO CONT [email or web address] [place] [address] [address] [place], [address], 03/26/2017 16:36:42 Result Notes Documentation Provider Name and Address Organization Details Recorded Time Mri, Lumbar Spine, W/wo Contrast : MR L SPINE W/WO CONT Jennifer jacobs [facility] 03/26/2017 16:36:42 Procedures Surgical History Date Name Laterality Status Provider Name and Address Organization Details Recorded Time [facility]ine [facility]ervical [facility] 12/15/2016 16:11:48 Knee Arthroscopic Surgery completed [facility] 12/15/2016 16:11:48 Lumpectomy of Breast completed [facility] 12/15/2016 16:11:48 Tubal Ligation completed [facility] 12/15/2016 16:11:48 Appendectomy (Appendix) completed [facility] 12/15/2016 16:11:48 Hysterectomy completed [facility] 12/15/2016 16:11:48 Plastic/Cosmetic Surgery completed Dillon Creasmjeffrey [facility] 12/15/2016 16:11:48 Blepheroplasty completed Dillon Creasman [facility] 12/15/2016 16:11:48 Colonoscopy completed Dillon Creasman [facility] 12/15/2016 16:11:48 Spine Lumbar Fusion completed Kaya Mathews [facility] 03/02/2017 14:14:55 Imaging Results None recorded. Procedure Notes None recorded. Medical Equipment None Reported. Allergies Allergen ID Allergen Name Allergen Category Reaction Reaction Severity Criticality Documentation Date Start Date Code Code System Note Provider Name and Address Organization Details Recorded Time 382182 Non-stero idal anti-infl ammatory agent (product) medicatio n Not available Not available Not available 12/15/2016 04532 005 SNOMED Dillon Creasman [facility] 7 16:12:22 429736 Ultram medicatio n Not available Not available Not available 12/15/2016 53581 6 RxNorm Dillon Creasman [facility] 7 16:12:29 868699 Zanaflex medicatio n Not available Not available Not available 12/15/2016 39690 6 RxNorm Dillon Creasman [facility] 7 16:12:34 838025 Product containin g glucocort icoid (product) medicatio n other severe Not available 03/02/2017 25329 6006 SNOMED Oral stero id dose pack [facility] 7 14:10:22 360545 Toradol medicatio n irregular heart rate severe Not available 03/02/2017 34750 [facility]Norm [facility] 7 14:13:54 Medications Name Sig Start Date Stop Date Status Note LastModified by Organization Details LastModified Time gabapentin 300 mg capsule TAKE 1 CAPSULE BY MOUTH EVERY 8 HOURS AND 2 AT BEDTIME active Not Available Not Available No t Available Tylenol-Code ine #3 300 mg-30 mg tablet Take 1 tablet every 6 hours by oral route as needed. 2016 active Not Available Not Available Not Avai lable [place] 7.5 mg-325 mg tablet Take 1 tablet every 6 hours by oral route as needed. 03/02 completed Not Available Not Available Not Available Cymbalta 30 mg capsule,brando yed release Take 1 capsule twice a day by oral route. active Not Available Not Available No t Available lisinopril active Not Available Not Av ailable Not Available metoprolol succinate active Not Available Not Available No t Available Robaxin 03/02 completed Not Available Not Available Not Available Neurontin 03/02 completed Not Available Not Available Not Available Metamucil active Not Available Not Dora ilable Not Available Carafate active Not Available Not Avai lable Not Available Protonix 03/02 completed Not Available Not Available Not Available melatonin 10 mg capsule Take by oral route. active Not Available Not Available No t Available Vitals Date Recorded Body height Body mass index (BMI) Body weight Provider Name and Address Organization Details Last Updated DateTime 12/15/2016 162.56 cm 33.1 kg/m2 28951.33 g Dillon Candelaria [facility] 12/15/2016 16:11:23 Date Recorded Body height Body mass index (BMI) Body weight Provider Name and Address Organization Details Last Updated DateTime 03/02/2017 162.56 cm 31.8 kg/m2 16067.59 g Kaya Mathews [facility] 03/02/2017 14:07:13 Social History Question Answer Notes LastModified by Organizat ion Details LastModified Time Auto Related Injury? No Information not available 12/15/2016 Live Alone Or With Others? Alone Information not available 12/15/2016 Job Status Full-time Information no t available 12/15/2016 Stairs At Home No Informatio n not available 12/15/2016 Marital Status Informatio n not available 12/15/2016 Work Related Injury? No Information not available 12/15/2016 Sex: Unknown Functional Status Question Answer Note LastModified by Organization D etails LastModified Time Are you able to care for yourself? Yes Information n ot available 12/15/2016 What is your occupation? nurse Information not available 12/15/2016 Mental Status None recorded. Family History Relationship Description Onset Age of this Age Resolved Age Notes LastModified by Organization Details LastModified Time Mother Malignant neoplastic disease [email or web address] Not available 2016 16:11:29 Brother Myocardial infarction [email or web address] Not available 12/15 16:11:29 Medical History Condition Response High Blood Pressure Y Sleep apnea: CPAP or BIPAP N Bleeding Disorders N Thyroid problems N Parkinson's Disease N Stents (other than cardiac) N Metal Implants N Depression N Lung problems N Prostate Problems N Anemia N Liver problems N Kidney problems N Heart Stent N Ulcers N Headaches/Migraines N Implanted device N Peripheral Neuropathy N Anxiety Disorder N Chronic infection N Arthritis Y Diabetes Type I or II N Blood Clot / DVT N HIV / AIDS N Seizures N Stroke/TIA N Reflux / GERD N High Cholesterol N Memory Loss N Dialysis N Blood clot in lung N Osteoporosis N Gynecological HistoryNo gynecological history recorded. Obstetrics History GPAL:G 0 P 0 0 0 0 Past Encounters Encounter ID Performer Location Encounter Start Date Encounter Closed Date Diagnosis/Indication Diagnosis SNOMED-CT Code Diagnosis ICD10 Code Diagnosis Note [id number] Josef Ricketts DO [facility] [address] [place] [address] 12/15/2016 15:13:59 12/15/2016 19:08:53 Displacement of lumbar intervertebral disc without myelopathy 32357474 M51.26 [id number] [address] DO [facility] [address] [place] [address] 03/02/2017 13:35:56 03/02/2017 14:50:10 Follow-up orthopedic assessment 930116585 Z47.89 Spinal alireza nosis of lumbar region 55511590 M48.06 Health Concerns Section Related Observation LastModified by Organization Detai ls LastModified Time None Recorded Concern Status LastModified by Organization Details LastModified Time None Recorded Advance Directives Directive None Recorded Payers Insurance Date Sequence Insurance Name Policy Number Policy Thomas Covered Member ID Thomas Member ID Guarantor Name 03/10/2017 1 [place] [id number] Dora Saxena [id number] Dora Saxena Notes Date Note Type Note Provider Name and Address Organization Details Recorded Time 12/15/2016 text/html Dora Saxena returns today for follow up status post PLIF and sacral dome osteotomy. The patient reports back pain and left leg pain/weakness. The patient rates their pain at 9 out of 10 on the pain scale today. The patient currently takes Robaxin, Neurontin and [place] 7.5 mg., which are effective in controlling pain. The pain is made worse by prolonged walking, while diminished by ice, lying down and medications. The patient is 100% improved since the surgery. [facility] Short Depression Scale completed by the patient. Total score is 16 (>=10 indicates depression). On the numeric pain rating scale, the patient indicates pain level is 9 out of 10. Current Oswestry score is 49 out of 100 points addressed, or %, indicating a functional disability in activities of daily living as perceived by the patient. IMANI Santos [facility] 12/21/2016 10:17:23 03/02/2017 text/html Dora genao seen on 12/15/16 and is here for follow up status post TLIF L5-S1 (DOS 11/27/16). The patient rates their pain at a 6-7 out of 10 on the pain scale and states it is constant. Pain is located in the back, pelvis, abdomen/groin, and left leg/hip. They are not experiencing numbness or tingling. They are experiencing weakness in the back and both legs. Pain is diminished by right side lying and using ice. Pain is intensified by left side lying, walking and bending. Current treatments which provide relief include Tylenol #3 and Neurontin 300 mg. The patient states they are worse after a fall in December 2016. Patient suffered a concussion. Sciatica has improved since the last visit. IMANI Ng - [facility] 03/04/2017 15:56:57 OBGyn Episode No OBEpisode recorded.
--- OUTSIDE RECORDS SUMMARY | 2024-12-27 08:04 | XMS_ITS | Data Portability ---
Author Organization [facility] KRISSY KrishnaS DEMAREST CLOSED Address [address] [place] [address] Care Team Providers Care Epic Prelude Analyst Name Role Phone CELIO BARROW OTHER Assessment No assessment recorded. Plan of Treatment Reminders Order Date Submit Date Provider Last Modified By Organization Details Last Modified Time Details Appointments None recorded. Lab None recorded. Referral None recorded. Procedures None recorded. Surgeries None recorded. Imaging None recorded. Medication Orders Compound Topical Cream Neurocream Reformulate d (Ketamine 10% Gabapentin 6% Lidocaine 5% Amitriptyli ne 2% Bupivacaine 2%) 2019 020 [address] [place] [facility], [address] [place] [address], [place], [place], [phone], 0 07:30:17 Patient TargetsNo targets recorded. Patient Instructions Encounter Date Encounter Id Patient Instructions Last Modified By Organization Details Last Modified Time 02/28/2020 [id number] osteoarthritis: care instructions [email or web address] Not available 02/28/2020 15:32:46 Reason for Referral None Reported. Medical Equipment None Reported. Allergies Allergen ID Allergen Name Allergen Category Reaction Reaction Severity Criticality Documentation Date Start Date Code Code System Note Provider Name and Address Organization Details Recorded Time [id number] Ultram medicatio n Not available Not available Not available 02/28/2020 75963 6 RxNorm Heidi Cheyaya [facility] 0 15:02:23 [id number] Zanaflex medicatio n Not available Not available Not available 02/28/2020 95632 6 RxNorm Heidi Cheek [facility] 0 15:02:38 Medications Name Sig Start Date Stop Date Status Note LastModified by Organization Details LastModified Time Compound Topical Cream Neurocrea m Reformula iron (Ketamine 10% Gabapenti n 6% Lidocaine 5% Amitripty line 2% Bupivacai ne 2%) apply 2 gm to the feet twice daily 2019 active Not Available Not Available Not Avai lable Pravachol 40 mg tablet Daily active Frequenc y: daily;Me dication Descript ion: pravasta tin; Dosage:1 ; Route:or al; refills: 0 Not Available Not Available Not Available Cardura 2 mg tablet Every evening 02/27 completed Frequenc y: qpm;Medi cation Descript ion: doxazosi n; Dosage:1 ; Route:or al; refills: 4; Quantity :30 tablet Not Available Not Available Not Available Protonix 40 mg tablet,de layed release Take 1 tablet every day by oral route. active Not Available Not Available No t Available gabapenti n 600 mg tablet TAKE 1 TABLET BY MOUTH THREE TIMES DAILY active Not Available Not Available No t Available aspirin 325 mg tablet Daily 02/27 completed Frequenc y: daily;Me dication Descript ion: aspirin; Dosage:1 ; Route:or al; refills: 0 Not Available Not Available Not Available clonazepa m 0.5 mg tablet Three times a day 02/27 completed Duration : 10 days;Jv quency: tid;Alt Frequenc y: prn;Medi cation Descript ion: clonazep am; Dosage:1 ; Route:or al; refills: 0 Not Available Not Available Not Available Prilosec 20 mg capsule,d elayed release Daily 2012 active Frequenc y: daily;Me dication Descript ion: omeprazo le; Dosage:1 ; Route:or al; refills: 5; Quantity :30 delayed release capsule Not Available Not Available Not Available Lidoderm 5 % topical patch APPLY 1 PATCH BY TOPICAL ROUTE ONCE DAILY (MAY WEAR UP TO 12HOURS. ) active Not Available Not Available No t Available Norvasc 5 mg tablet Daily active Frequenc y: daily;Me dication Descript ion: amlodipi ne; Dosage:1 ; Route:or al; refills: 0 Not Available Not Available Not Available lisinopri l 20 mg-hydroc hlorothia zide 25 mg tablet Daily active Frequenc y: daily;Me dication Descript ion: hydrochl orothiaz gerry-dayron nopril; Dosage:1 ; Route:or al; refills: 0 Not Available Not Available Not Available amitripty line 100 mg tablet Bedtime 02/27 completed Frequenc y: hs;Medic ation Descript ion: amitript yline; Dosage:1 ; Route:or al; refills: 0 Not Available Not Available Not Available Cymbalta 60 mg capsule,d elayed release Take 1 capsule every day by oral route. active Not Available Not Available No t Available allopurin ol active Not Available Not Available Not Available Animi-3 With Vitamin D active Not Available Not Available No t Available metoprolo l succ 50 mg-hydroc hlorothia zide 12.5 mg tablet,ex t.rel 24 hr Take 1 tablet every day by oral route. active Not Available Not Available No t Available Vitals Date Recorded Body weight Respiratory rate Heart rate Systolic And Diastolic Provider Name and Address Organization Details Last Updated DateTime 02/28/2020 73699.54 g 18 /min 54 /min 144/90 mm[Hg] Heidi Thorne [facility] 02/28/2020 15:11:38 Social History Question Answer Notes LastModified by [employer] Details LastModified Time Tobacco Smoking Status Never Smoker Heidi Thorne [facility] 02/28/2020 15:08:01 How Much Tobacco Do You Chew? None Information not available 02/28/2020 What Was The Date Of Your Most Recent Tobacco Screening? 02/28/2020 Information not available 02/28/2020 How Much Tobacco Do You Smoke? No Information not available 02/28/2020 How Many Years Have You Smoked Tobacco? 0 Information not available 02/28/2020 Sex: Unknown Functional Status Question Answer Note LastModified by [employer] Details LastModified Time Do you or have you ever used smokeless tobacco? Never used smokeless tobacco Information not available 02/28/2020 Do you or have you ever used e-cigarettes or vape? Never used electronic cigarettes Information not available 02/28/2020 Mental Status None recorded. Family History Nothing Reported. Medical History Condition Response Diabetes Y Bleeding Disorder N Arthritis Y Emphysema N Heart Disease N Acid Reflux (GERD) Y Rheumatoid Arthritis N Hypertension Y COPD N Asthma N Gynecological HistoryNo gynecological history recorded. 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 No associated connective tissue disease process noted. In particular no features of systemic lupus, Sjogren syndrome or mixed connective tissue disease process noted. No evidence of skin thickening , skin tightening or sclerodact yly noted. Similarly no features of limited scleroderm a or diffuse scleroderm a noted. Today she is educated about Raynaud's phenomenon in associatio n with peripheral neuropathy and reassured about the absence of connective tissue disease process. She suggested to maintain strict diabetes control with diet and exercise along with maintenanc e of gabapentin for peripheral neuropathy . Add topical Neuro-crea m, for symptomati c management of peripheral neuropathi c pain unrelieved by gabapentin . Also suggested to consider addition of calcium channel amalia such as amlodipine or Procardia XL and avoid beta amalia. Continue to observe precaution from cold especially in the peng. Other options such as topical nitroglyce rin cream can be used in case of worsening symptoms especially during the peng. Generalize d osteoarthritis 867278101 M15.9 her musculoske letal examinatio n is consistent with generalize d osteoarthr itis without any evidence of inflammato ry joint disease. No features of rheumatoid , gout or gouty arthritis noted In particular she is symptomati c at the first [facility] joints, and bilateral metatarsop halangeal joints. She will continue with the symptomati c management , can take Tylenol Extra Strength 2 tablets couple of times a day or use Voltaren gel as needed. Avoid the use of oral NSAIDs because of risk for worsening hypertensi on and fluid retention. Similarly avoid corticoste roids due to underlying diabetes. Health Concerns Section Related Observation LastModified by Organization Detai ls LastModified Time None Recorded Concern Status LastModified by Organization Details LastModified Time None Recorded Advance Directives Directive None Recorded Payers Insurance Date Sequence Insurance Name Policy Number Policy Thomas Covered Member ID Thomas Member ID Guarantor Name 03/04/2020 1 [place] Dora Saxena [id number] Dora Saxena Notes Date Note Type Note Provider Name and Address Organization Details Recorded Time 02/28/2020 text/html 69-year-old fema le seen today for concerns about systemic lupus. She is a history of painful peripheral neuropathy especially involving the lower extremities predominantly the toes. She is on gabapentin 800 mg up to 3 times a day. However in the last few years, she has noticed discoloration of her toes turning purple blue especially on exposure to cold temperature. The peripheral vascular studies are stable without any appreciable peripheral vascular disease. Lab studies were significant for a positive NATANAEL which raised the concerns about the possibility of lupus. She does have diabetes but has controlled the blood sugar through diet and exercise. She is currently not on any oral antidiabetic. Similarly she has a history of hypertension and currently is on ISREAL inhibitor in combination with diuretic and beta amalia. She does not take calcium channel amalia she does not have any history of serositis or cytopenias. Certainly does not have any history of thrombosis. She is a traveling nurse. She does not smoke cigarettes. She doesn't drink alcohol. RINA SHELBY MD [address] [place] [address], [phone], [facility] 02/28/2020 16:38:01 OBGyn Episode No OBEpisode recorded.
--- OUTSIDE RECORDS SUMMARY | 2024-12-27 08:04 | XMS_ITS | Data Portability ---
Author Organization [facility] [place] - [facility] Address [address] [place] [address] Assessment No assessment recorded. Plan of Treatment Reminders Order Date Submit Date Provider Last Modified By Organization Details Last Modified Time Details Appointments FOLLOW UP 15 2024 04:45P M Michelle Monet PA-C Not available Not available Not available Lab HbA1c (hemoglob in A1c), blood [address], [address] [facility], [place], [address], 12/14/2024 17:57:29 Referral pain managemen t referral 2024 025 [facility], [address] [place] [address] Justin Larson, [place], [address], 09/13/2024 15:58:26 Procedures home sleep testing (PROC) 2024 025 [facility], [address], [place], [address], 12/18/2024 09:55:59 Surgeries None recorded. Imaging XR, thoracic spine, 3 view 2024 025 [facility] Scheduling Department -New Scheduling Process, [address], [place], [address], 08/31/2024 10:50:35 Medication Orders phentermi ne 37.5 mg tablet 2024 025 [facility] [id number], [address] [place], [address], 12/14/2024 15:22:52 Patient TargetsNo targets recorded. Patient Instructions Encounter Date Encounter Id Patient Instructions Last Modified By Organization Details Last Modified Time 08/24/2024 [id number] healthy upper back: exercises [email or web address] Not available 08/24/2024 15:40:37 12/14/2024 [id number] learning about high blood sugar [email or web address] Not available 12/14/2024 17:55:49 snoring: care instructions [email or web address] Not available 12/14/2024 15:22:25 body mass index: care instructions [email or web address] Not available 12/14/2024 15:22:46 learning about healthy weight [email or web address] Not available 12/14/2024 15:22:46 Reason for Referral Pain Management Referral for Thoracic back pain Referring Physician: Michelle Monet, Family Medicine, Encounter Date: 08/24/2024 Results Created Date Observation Date Name Description Value Unit Range Abnormal Flag Note LastModifiedBy Organization Detail LastModifiedTime 12/15/19 25 12/14/2024 HbA1c (hemo globi n A1c), blood HbA1c 6.0 % Not Available [facility] [address] [facility], [place], [address], 12/14/2024 17:55:00 09/01/19 25 08/29/2024 XR, thora cic spine , 3 view No observ ation record ed. [facility] (Med Record) [address], [place], [address], 09/01/2024 14:21:59 Result Notes None recorded. Problems Name Problem SNOMED Code Status Onset Date Resolution Date Notes Provider Name and Address Organization Details Recorded Time Thoracic back pain 559372424 Active 2024 KAREN Tejada [address] [place] [address], [phone], [facility] [employer] 15:40:12 22464193 Active 2024 Celine Miles null, [employer] 13:40:49 Mild major depression, single episode 00431429 Active 2024 KAREN Tejada [address] [place] [address], [address], [employer] 13:50:53 Snoring 03127969 Active 2024 KAREN Tejada [address] [place] [address], [address], [employer] 15:20:17 Hyperglycemia 68616377 Active 2024 KAREN Tejada [address] [place] [address], [address], [employer] 17:54:58 Problem Notes None recorded. Procedures Surgical History Date Name Laterality Status Provider Name and Address Organization Details Recorded Time 09/22/19 20 Most Recent Mammogram completed [employer] 08/24/2024 15:07:32 Appendectomy completed [employer] 08/24/2024 15:07:33 Back Surgery completed [employer] 08/24/2024 15:07:33 Breast Biopsy completed [employer] 08/24/2024 15:07:33 Colposcopy completed [email or web address] [facility] [employer] 08/24/2024 15:07:33 Hysterectomy completed [employer] 08/24/2024 15:07:33 Neurosurgery completed [employer] 08/24/2024 15:07:33 Tubal Ligation completed [employer] 08/24/2024 15:07:33 Dilation and Curettage completed [employer] 08/24/2024 15:07:33 Orthopedic Surgery completed [employer] 08/24/2024 15:07:33 Endometrial Biopsy completed [employer] 08/24/2024 15:07:33 Cosmetic Surgery completed [employer] 08/24/2024 15:07:33 Total Hysterectomy completed [employer] 08/24/2024 15:07:33 Imaging Results None recorded. Procedure Notes None recorded. Medical Equipment None Reported. Allergies Allergen ID Allergen Name Allergen Category Reaction Reaction Severity Criticality Documentation Date Start Date Code Code System Note Provider Name and Address Organization Details Recorded Time 21757 aspirin medicatio n other Not available Not available 08/24/2024 1191 [employer] 15:07:32 51949 Product containin g glucocort icoid (product) medicatio n Not available Not available Not available 08/24/2024 88488 6006 SNOMED [employer] 15:21:02 85866 Zanaflex medicatio n Not available Not available Not available 12/14/2024 47295 6 RxNorm [facility] [employer] 14:57:42 94169 tramadol medicatio n Not available Not available Not available 12/14/2024 11358 RxNorm [facility] [employer], [employer] 14:58:00 Medications Name Sig Start Date Stop Date Status Note LastModified by Organization Details LastModified Time semaglutide 0.5mg/0.5ml injectable Inject 0.25mL (0.25mg=2 5 units) subcutane ously once weekly for four (4) weeks. 08/24 completed Not Available Not Available Not Available Norvasc 10 mg tablet Take 1 tablet every day by oral route. active Not Available Not Available No t Available hydrocodone 5 mg-acetamin ophen 325 mg tablet TAKE 1 TABLET BY MOUTH EVERY 6 HOURS NEEDED FOR SEVERE PAIN 08/24 completed Not Available Not Available Not Available lisinopril 20 mg tablet Take 1 tablet every day by oral route. active Not Available Not Available No t Available phentermine 37.5 mg tablet Take 1 tablet every day by oral route for 30 days. 2024 active Not Available Not Available Not Avai lable duloxetine 60 mg capsule,del ayed release Take 1 capsule every day by oral route for 90 days. 2024 active Not Available Not Available Not Avai lable Sure Comfort Insulin Syringe 0.5 mL 31 gauge x 5/16 USE DIRECTED 08/24 completed Not Available Not Available Not Available Lyrica 150 mg capsule Take 1 capsule twice a day by oral route for 90 days. 2024 active Not Available Not Available Not Avai lable metoprolol succinate ER 50 mg capsule sprinkle, ext. release 24 hr Take 1 capsule every day by oral route. active Not Available Not Available No t Available Vitals Date Recorded Body weight Body mass index (BMI) Body height Oxygen saturation Oxygen saturation in Arterial blood by Pulse oximetry Heart rate Body temperature Systolic And Diastolic Systolic And Diastolic Provider Name and Address Organization Details Last Updated DateTime 5 80660.2 9 g 37.5 kg/m2 162.56 cm 95 % 95 % 64 /min 97.8 [degF] 146/80 mm[Hg] 142/80 mm[Hg] Madelaineyi Rose [employer] [place] 15:20:26 Date Recorded Body height Body mass index (BMI) Body weight Oxygen saturation Oxygen saturation in Arterial blood by Pulse oximetry Heart rate Body temperature Systolic And Diastolic Provider Name and Address Organization Details Last Updated DateTime 5 162.56 cm 37.8 kg/m2 81397.3 2 g 97 % 97 % 60 /min 98.3 [degF] 103/67 mm[Hg] Brooke Harris [employer] 15:02:02 Social History Question Answer Notes LastModified by Organizat ion Details LastModified Time Tobacco Smoking Status Never Smoker Madelaineyi Rose [facility] [employer] [facility] [place] 08/24/2024 15:07:32 Do You Have An Advance Directive? No Information not available 08/24/2024 Is Your Home Air Conditioned? Yes Information not available 08/24/2024 If You Are , What Was Your Level Of Alcohol Consumption Prior To ? None Information not available 08/24/2024 Do You Wear A Helmet When Biking? No Information not available 08/24/2024 Are You Blind Or Do You Have Difficulty Seeing? Yes Information not available 08/24/2024 What Is Your Level Of Caffeine Consumption? Moderate Information not available 08/24/2024 What Type Of Sample Examiner Do You Use? None Information not available 08/24/2024 Have You Been To An Area Known To Be High Risk For COVID-19? No Information not available 08/24/2024 Are You Deaf Or Do You Have Serious Difficulty Hearing? No Information not available 08/24/2024 What Type Of Diet Are You Following? VEGETARIAN Information not available 08/24/2024 How Many Days Of Moderate To Strenuous Exercise, Like A Brisk Walk, Did You Do In The Last 7 Days? 1 Information not available 08/24/2024 Have There Been Any Changes To Your Family Or Social Situation? Yes Information no t available 08/24/2024 Are There Any Guns Present In Your Home? No Information not available 08/24/2024 Which Of Your Hands Is Dominant? Right Information not available 08/24/2024 What Is Your Home Situation? Other Information not available 08/24/2024 Do You Have A Medical Power Of Bending Roll Hand? No Information not available 08/24/2024 What Was The Date Of Your Most Recent Tobacco Screening? 12/14/2024 [email or web address] Information not available 12/14/2024 Do You Have Any Pets? No Information not available 08/24/2024 What Is Your Relationship Status? Information not available 08/24/2024 Have You Repeated Any Grades? No Information not available 08/24/2024 Do You Use Your Seat Belt Or Car Seat Routinely? Yes Information not available 08/24/2024 Are You Sexually Active? No Information not available 08/24/2024 Do You Have Any Siblings? 1 Alive Information not available 08/24/2024 Do You Have Smoke And Carbon Monoxide Detectors In Your Home? Yes Information not available 08/24/2024 Are You Passively Exposed To Smoke? No Information no t available 08/24/2024 Are There Any Smokers In Your House? No Information not available 08/24/2024 What Types Of Sporting Activities Do You Participate In? Limited Walking Right Now Due To Back Pain Information not available 08/24/2024 Do You Use Sunscreen Routinely? Yes Information not available 08/24/2024 Has Tobacco Cessation Counseling Been Provided? No Information not available 08/24/2024 Have You Recently Traveled Abroad? No Information not available 08/24/2024 Do You Have Difficulty Walking Or Climbing Stairs? Yes Information not available 08/24/2024 Are You Currently In School? No Information not available 08/24/2024 What Contraceptive Method Was Reported At Start Of This Visit? Female Sterilization Information not available 08/24/2024 Do You Have Any Dietary Restrictions? Yes Information not available 08/24/2024 Sex: Unknown Functional Status Question Answer Note LastModified by [employer] Details LastModified Time Do you use any illicit or recreational drugs? No Information not available 08/24/2024 Do you or have you ever used any other forms of tobacco or nicotine? No Information not available 08/24/2024 What is your level of alcohol consumption? None Information not available 08/24/2024 Are you currently employed? No Information not available 08/24/2024 Do you have transportation difficulties? No Information not available 08/24/2024 Are you able to walk? YESWOREST Information not available 08/24/2024 Do you have difficulty doing errands alone? No Information not available 08/24/2024 Are you able to care for yourself? Yes Information n ot available 08/24/2024 Do you have difficulty dressing or bathing? Yes Information not available 08/24/2024 What is your exercise level? Occasional Information not available 08/24/2024 Mental Status Question Answer Note LastModified by Organizat ion Details LastModified Time Do you feel stressed (tense, restless, nervous, or anxious, or unable to sleep at night)? [id number] Information not available 08/24/2024 Do you have difficulty concentrating, remembering or making decisions? No Information no t available 08/24/2024 Are you or have you been involved with bullying? Yes Information not available 08/24/2024 Family History Relationship Description Onset Age of this Age Resolved Age Notes LastModified by Organization Details LastModified Time Brother Heart disease Not available 2024 15:22:29 Father Diabetes mellitus Not available 2024 15:22:37 Father Parkinson's disease Not available 2024 15:22:44 Mother Malignant tumor of breast Not available 2024 15:22:51 Medical History Condition Response Coronary Artery Disease N Gout N Other Y Blood Diseases N Kidney Stones N Hyperthyroidism N Breast Cancer N Blood Transfusion N Emergency room visit since last appointm ent. N Hypothyroidism N Lung Disease N Dermatologic Disorders N Depression Y COPD N Defects or Inherited Disease N Developmental or Behavioral Disorders N Breast Problem N Difficulty Swallowing N Anesthesia Complications N History of STI N Meniere's disease N Anxiety Disorder Y Muscle, Joint, or Bone Problems N Autoimmune disease N Vision or Eye Problems N Arthritis N Polyps N Infertility N Mental Disorder N Congenital Anomalies N Acid Reflux (GERD) N Cancer N Stroke N Neurologic/Epilepsy N Endometriosis N Bladder or Kidney Problems N High Cholesterol Y Liver Disease N Organ Transplant N Psychiatric/Mental Health Condition N Fibromyalgia N Dialysis N Schizophrenia N Headaches N Kidney Disease N Allergies/Hayfever N Heart Problems N Ear or Hearing Problems N Hospitalizations N Learning Disorder N Artificial Joints N Thyroid Problems N GI Problems Y Acne N ADD/ADHD N Eating Disorder N Anemia N Constipation N Mental Illness N Ovarian Cancer N Diabetes N Bedwetting N Hepatitis/Liver Disease N Tuberculosis N Eczema N Diverticulitis N Abuse/Domestic Violence N Asthma N Trauma/Violence N Substance Abuse N Reflux/GERD N Depression/ depression N Hepatitis N Heart Disease N Pulmonary Embolism N Tourette Syndrome N Chronic Ear Infections N Pre-Eclampsia N Hypertension Y Chicken Pox N Autism Spectrum Disorder (ASD) N Osteoporosis N Thrombophilias N Gynecological History Statement/Question Response Menses Monthly N HPV Vaccine N Date of Last Pap Smear Most Recent Mammogram 09/22/2019 Age at First Child 21 Obstetrics History GPAL:G 3 P 1 1 0 0 Type Value Multiple Births 0 Full Term 1 Induced 0 Spontaneous 0 Premature 1 Living 0 Ectopics 0 Total 3 Immunizations Vaccine Type Date Status Note Provider Nam e and Address Organization Details Recorded Time COVID-19, mRNA, LNP-S, PF, 100 mcg/0.5mL dose or 50 mcg/0.25mL dose 09/05/2020 completed Madelaine Vice null, [employer] 08/24/2024 15:07:42 COVID-19, mRNA, LNP-S, PF, 50 mcg/0.5 mL 09/22/2023 completed Madelaine Vice null, [employer] 08/24/2024 15:07:42 Influenza, high-dose, trivalent, PF 04/20/2024 completed Madelaine Vice null, [employer] 08/24/2024 15:07:42 Past Encounters Encounter ID Performer Location Encounter Start Date Encounter Closed Date Diagnosis/Indication Diagnosis SNOMED-CT Code Diagnosis ICD10 Code Diagnosis Note [id number] AKREN Tejada [address] [address] 08/24/2024 14:30:09 08/24/2024 15:49:28 Thoracic back pain 448817689 M54.6 Will obtain Xray to r/o compressio n fractureNe w pain management referral [id number] Michelle Monet [facility] [address] [place] [id number] 12/14/2024 14:43:36 12/14/2024 15:23:18 Snoring 52674347 R06.83 Body mass index 30+ - obesity 272242041 Z68.37 Hyperglycemia 69728070 R 73.9 Health Concerns Section Related Observation LastModified by Organization Detai ls LastModified Time None Recorded Concern Status LastModified by Organization Details LastModified Time None Recorded Advance Directives Directive N: Payers Insurance Date Sequence Insurance Name Policy Number Policy Thomas Covered Member ID Thomas Member ID Guarantor Name 12/01/2024 1 [place] Dora Saxena [id number] 2 Dora Saxena 12/01/2024 [place] [employer] [facility] Dora Saxena [id number] 2 Doralucio Saxena Notes Date Note Type Note Provider Name and Address Organization Details Recorded Time 08/24/2024 text/html Failed lumbar surgery 2017.SCS January 2024. States that is has not worked as well as she would have hoped. She states 50% of the time it does help give pain relief but the pain is at times quite severe. Seems to be positional.Now has pain in mid thoracic area. This started around the same time that she had the SCS. Pain radiates around to her breasts but only radiates to one side or the other at a time (not both sides at the same time). Sometimes has trouble putting arm down close to body. Sometimes breast pain is severe.No imaging of thoracic pain since pain started but no known injury.Has been in pain management in the past. SCS was put in by [facility]. 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 She states that she would go back to work to improve her financial situation but she has to get her pain under control.Previously saw Jennifer Antonio APRN but states she told her she was unable to do anything for her for her pain. KAREN Tejada [address] [place], [address], [employer] 08/24/2024 17:50:46 12/14/2024 text/html Patient would li ke to have her HgA1c checked. States that her blood sugar has been higher at home.Would like to discuss options for weight loss.States that she is always tired. Brother notes that she snores.Blood pressure is well controlled. Denies headache, chest pain, vertigo, dyspnea. KAREN Tejada [address] [place], [address], [employer] 12/15/2024 15:53:08 OBGyn Episode Ob Episode Information Episode Created Date Number of Fetuses Patient Bloodtype Patient rh Status Prepregnancy Weight lbs Domestic Partner Domestic Partner Phone Father Name Motor Vehicle License Clerk Status 11/10/19 25 1 OPEN Fetus Data First Name Last Name Admitted to NICU Weight (g) Sex Living Outcome Pediatric Complications Fetus ID Race Codes Race Delivery Type [id number] Sam Calculation Initial Sam Date Initial Exam Date Initial Exam Provider Initial Ultrasound Date Last Menstrual Period Date Ultra Sound Weeks Gestation 11/09/2024 0 Eighteen To Twenty Week Sam Update Ultra Sound Date Fundal Height At Umbil Quickening Date Ultra Sound Latest Weeks Gestation Final Sam Confirmed By Final Sam Confirmed Date Final Sam Date Ultra Sound Latest Days Gestation 0 0 Pre-ewelina Flowsheet Flowsheet Date 12/14/2024 Verdugo Score Blood Edema Fundus Height Fundus Units Glucose Ketones Leukocytes Nitrite Labor Signs Protein Cervic Dilation Cervic Effacement Cervic Station Type Weight in lbs Pre/Post Dialysis Refused Weight 220.644846921777 BP Diastolic BP Location Tested BP Systolic BP Type 67 L arm 103 sitting Fetus Heart Rate Present Fetus Movement Comments Menstrual History Last Menstrual Date Menses Monthly On Bcp Conception Prior Menses Frequency Hcg Plus Date Menarche Onset Age Delivery Information Delivery Date Delivery Type Labor Anesthesia Weeks Gestation Incision Type Labor Labor Length Hrs Delivered By Post Complications Tubal Sterilization Discharge Date Comments Discharge Information Feeding Method Contraceptive Method Maternal HG B and HCT Levels
[2024-12-27 08:05] VITALS: BP 129/90; PULSE 77; RESP 15; TEMP 36.6; O2SAT 98; BMI 35.6
[2024-12-27] MEDS: OXYCODONE 5MG IMMEDIATE RELEASE TABLET 5 MG PO (08:17)
--- NOTE | 2024-12-27 08:17 | HMH.EDGENADL ---
Discharge Plan Disposition Patient Disposition: Home, Self-Care Prescriptions Prescriptions: New valacyclovir 1 gram tablet 1,000 mg PO TID 7 Days Qty: 21 0RF No Action Ozempic 0.25 mg or 0.5 mg (2 mg/3 mL) pen injector 0.25 mg SQ WEEKLY Rx Instructions: for 4 weeks clobetasol 0.05 % cream 1 applic topical HS Qty: 30 1RF Rx Instructions: Apply thin layer nightly at bedtime for 6 weeks duloxetine 60 mg capsule,delayed release(DR/EC) 60 mg PO BID amlodipine 10 mg tablet 10 mg PO DAILY lisinopril 20 mg tablet 20 mg PO DAILY pantoprazole [Protonix] 40 mg tablet,delayed release (DR/EC) 40 mg PO DAILY pregabalin 150 mg capsule 150 mg PO BID Referrals Follow up/Referrals: Michelle Monet PA [Primary Care Provider, Medical] - See instructions Activity Restrictions/Add. Instructions Additional Instructions/Restrictions: At this time it was felt you are safe to be discharged home. If new or worsening symptoms please do not hesitate to return the emergency department. You have shingles (herpes zoster) of the V1 branch of your trigeminal nerve. Please take your medication as prescribed and follow-up with your family doctor on Wednesday or Wednesday to ensure things are stable are headed in the right direction as discussed. This usually takes 1 to 2 weeks to resolve. Clinical Impressions Clinical Impression: Acute trigeminal herpes zoster Instructions Patient Instructions: DI for Skin Abscess Print Language Print Language: Georgian Discharge ED Provider: Akil Magdaleno General Adult HPI General Chief complaint: Skin/Abscess/Foreign Body Stated complaint: Rash all over head Time Seen by Provider: 12/27/24 08:00 Mode of Arrival: Ambulatory Source of Information: Patient Description of Symptoms (Recalled from ER Triage Doc. by RN): patient states one week ago she got into a tanning bed first time [place] while, 3 days ago she developed a headache and a itching burning rash in her scalp, patient has small circular lesions all throughout scalp that she is picking at . History of Present Illness HPI narrative: Patient is 74-year-old female with past medical history of previous herpes zoster on the right side of her face who presents emergency department for evaluation of blistering burning rash. She had some burning sensation over her scalp over the last few days over the top of her calvarium which has since blistered caused her to become concerned and presented for continued evaluation. She did use tanning bed last week for the first time in some time. No other acute complaints at this time. No visual acuity changes reported. Please note that above description of symptoms, in this electronic medical record under categorization of recalled from ER triage doctor by RN are reflective of an initial nursing assessment, however, is not reflective of my full history and physical exam that was personally taken and clarified. Consequentially, this preceding description of symptoms, which may include the patient's categorized chief complaint in the EMR, do not reflect my personal clinical impression, and the ultimate description of history of present illness and patient stated complaints should be deferred to this section of the note. Unless stated otherwise or congruent with this section of the note, additional signs, symptoms, or incongruence should be interpreted as inaccurate with my clinical impression. Related Data Home Medications ?Medication ?Instructions ?Recorded ?Confirmed amlodipine 10 mg tablet 10 mg PO DAILY 11/05/23 07/05/24 duloxetine 60 mg capsule,delayed 60 mg PO BID 11/05/23 07/05/24 release lisinopril 20 mg tablet 20 mg PO DAILY 11/05/23 07/05/24 pantoprazole 40 mg tablet,delayed 40 mg PO DAILY 11/05/23 07/05/24 release (Protonix) pregabalin 150 mg capsule 150 mg PO BID 11/05/23 07/05/24 semaglutide 0.25 mg or 0.5 mg (2 0.25 mg SQ WEEKLY 07/05/24 07/05/24 mg/3 mL) subcutaneous pen injector (Ozempic) Previous Rx's ?Medication ?Instructions ?Recorded clobetasol 0.05 % topical cream 1 applic topical HS #30 grams 07/05/24 valacyclovir 1 gram tablet 1,000 mg PO TID Shingles 7 days 12/27/24 #21 tabs Allergies Allergy/AdvReac Type Severity Reaction Status Date / Time tizanidine (From Zanaflex) AdvReac Intermediate Hallucinati Verified 07/05/24 14:13 ng tramadol AdvReac Mild Other Verified 07/05/24 14:13 PFSH [facility] Disclaimer: The information contained in this section may have been updated after the patient was seen, as this information can be updated by other users. Medical History (Updated 12/27/24 @ 08:15 by Akil Magdaleno MD) Lichen sclerosus of vulva Raynaud's disease Hypertension Osteoarthritis Neuropathy Diabetes Surgical History (Updated 07/05/24 @ 14:30 by ANITA Reynolds) History of hysterectomy History of lumbar fusion History of fusion of cervical spine Hx of laparoscopic gastric banding H/O tubal ligation History of appendectomy Family History Other Cancer Coronary artery disease Diabetes Heart attack Hypertension Social History Smoking Status: Never smoker alcohol intake: never substance use type: denies use current occupational status: unemployed and other Travel in the last 8 weeks?: None Have you lived/traveled outside [place] in past 30 days?: No Contact w/someone who lives/traveled outside US past 30 days?: No Exposure to someone with infectious disease in past 14 days?: No Do you have a fever (greater than 100.4 F or 38 C)?: No Have you tested positive for COVID-19?: No Exposed to someone with COVID-19 in past 14 days?: No Do you have a sore throat?: No Do you have a cough?: No Do you have any weakness?: No Do you have any diarrhea?: No Are you experiencing any unusual bleeding?: No Do you have any muscle aches/pain?: No Do you have any abdominal pain?: No Are you experiencing loss of taste or smell?: No Other Medical History Have you received the Pneumonia Vaccine: Yes ROS Obtained: Yes Systems reviewed as appropriate & no additional complaints except as documented Physical Exam General General appearance: alert and in no apparent distress Head Head exam: atraumatic, normocephalic and other (Erythematous superior calvarium with crusting lesions along a V1 distribution of the frontal and superior scalp. No periorbital involvement.) Eye Eye exam: Present PERRL and EOMI ENT ENT exam: Present mucous membranes moist Neck Neck exam: Present normal inspection Chest Chest inspection: Present normal inspection and symmetric chest wall rise Respiratory Respiratory exam: Absent respiratory distress Cardiovascular Cardiovascular exam: Present regular rate and normal rhythm Abdominal Exam Abdominal exam: Present soft Extremities Exam Extremities exam: Present normal inspection Neurological Exam Neurological exam: Present alert and CN II-XII intact; Absent motor sensory deficit Psychiatric Psychiatric exam: Present normal affect Skin Skin exam: Present warm and dry Medical Decision Making Medical Records Screening: Per USPSTF and CDC recommendations, given the prevalence of disease in our region, it is our hospital?s policy to screen for HIV and viral Hepatitis for all patients aged 18 and over and those with ongoing risk factors. Artemio Inquiry Pt receiving controlled substance: No Vital Signs: 12/27/24 08:05 Temperature 98 F Temperature Source Oral Pulse Rate [Right Radial] 77 Respiratory Rate 15 Blood Pressure [Right Arm] 129/90 Blood Pressure Mean [Right Arm] 103 Blood Pressure Source [Right Arm] Automatic Cuff Blood Pressure Position [Right Arm] Sitting 02 Sat by Pulse Oximetry 98 Oxygen Delivery Method Room Air Orders (Tests/Meds): ED MEDICATIONS Discontinued Medications Generic Name Dose Route Start Last Admin Trade Name Freq PRN Reason Stop Dose Admin Oxycodone HCl 5 mg 12/27/24 08:14 Oxycodone 5mg Immediate Release Tablet PO 12/27/24 08:15 ONCE ONE ORDERS Category Date Time Status HIV Combo Stat Lab 12/27/24 08:08 Ordered Hepatitis C Ab Qual. W/ RFX Stat Lab 12/27/24 08:08 Ordered Medical Decision Narrative: In summary patient is 74-year-old female past medical history described above presents emergency department for evaluation of rash. Based on history and physical exam patient has herpes zoster in a V1 distribution of her scalp. She has no visual acuity changes reported no periorbital involvement. Given this workup with labs and imaging was considered but will be deferred. Patient be treated empirically for herpes zoster with valacyclovir. 1 dose of oxycodone will be administered in the ER for pain control and she has pregabalin at home already prescribed to her which I encouraged her to take. She will follow-up with her PCP on Wednesday or Wednesday to make sure things are stable or improving. Coffee Attendant disclaimer Much of this encounter note is an electronic assembly repairer spoken language to printed text. Electronic assembly repairer of the spoken language may permit errors. Although I have reviewed the note, some errors may still exist. Critical Care Critical Care Time Critical Care Time: No
[2024-12-27 08:33] VITALS: BP 123/69; PULSE 77; RESP 15; TEMP 36.7; O2SAT 99
== END 2024-12-27 08:33 | disposition home or self-care (01) ==
PROVIDERS: Emergency Provider Emergency Medicine; PCP Physician Assistant
DX: B02.22 Postherpetic trigeminal neuralgia (principal); I10 Essential (primary) hypertension; E11.9 Type 2 diabetes mellitus without complications
CPT/HCPCS: 99283

== ENCOUNTER 2025-01-01 21:22 | Emergency (ER) | payer MEDICARE, SELFPAY ==
--- OUTSIDE RECORDS SUMMARY | 2016-10-25 20:00 | XMS_ITS | Continuity of Care Document ---
Author Organization [facility] [place] [facility] [employer] [facility] Address [address] [place] [phone] Phone Care Team Providers Care Head Waiter/Waitress Name Role Phone Marcus Leung MD Unavailable Unavailable Procedures Procedure Date INPATIENT CONSULTATION SUBSEQUENT HOSPITAL CARE ECHO 2D W/DOPPLER Advance Directives Directive Yes / No Effective Date File Name No Information Encounters Encounter Description Practice Location Reason(s) For Visit Diagnoses Date Provider Providers Copied on En[facility], [address] [place] [address], [id number], tel:[phone] [facility] IP No Information Madhu Velazquez. [address] [place] [address], [id number], [place]. tel:[phone] Referring Provider: Aaron Catalan, [address] [place] [address], [id number]. tel:[phone] [facility] [employer] [facility], [address] [place] [address], [id number], tel:[phone] [facility] IP No Information Rubén Gan. [address] [place] [address], [id number], . tel:[phone] Referring Provider: Aaron Catalan, [address] [place] [address], [id number]. tel:[phone] Family History Family Member Type Diagnosis Age At Onset No Information Payers Payer name Insurance type Covered green party ID Authorrayray hernandez(s) [facility] [place] [id number] Social History Type Description Quantity Date Captured Comments Sex Female Smoking Status No Information Chief Complaint And Reason For Visit No Information Reason For Referral Reason For Referral No Information History Of Present Illness Encounter Date Complaint History Of Prese nt Illness No Information Functional Status Date Functional Assessmen t No Information Instructions Date Instruction Additional Infor mation No Information Assessments Type Assessment Date No Information Patient Care Teams Name Effective Dates (start - stop) Status Members No Information
--- OUTSIDE RECORDS SUMMARY | 2022-08-14 08:30 | XMS_ITS | Continuity of Care Document ---
Author Organization [facility] Address [address] [place] [address] Phone Care Team Providers Care Job Foreman Name Role Phone Timothy Lux MD Unavailable [...] AGENT Eylea Injection, Aflibercept, 1mg OFFICE/OUTPATIENT VISIT, [facility] Advance Directives Directive Yes / No Effective Date File Name No Information Encounters Encounter Description Practice Location Reason(s) For Visit Diagnoses Date Provider Providers Copied on Encounter [facility], [address] [place] [address], [id number], tel:[phone] [facility] [place] CRVO (chief complaint) Central retinal vein occlusion, left eye, with macular edemaNS Cat Bilateral Jose J Aguirre. [address] [place] [address], [id number], . tel:[phone] OFFICE/OUTPATI ENT VISIT, [facility], [address] [place] [address], [id number], tel:[phone] [facility] [place] Vision Loss (chief complaint) CRVO w/ ME OS Agustin Wolf. [address] [place] [address], [id number], . tel:[phone] Referring Provider: Trent Lam, [address] [place], [address]. tel:[phone] Family History Family Member Type Diagnosis Age At Onset Mother Problem (finding) Diabetes mellitus Mother Problem (finding) Cardiovascular disease Mother Problem (finding) Hypertension Payers Payer name Insurance type Covered alliance party ID Authoriza tion(s) Medicare [place] MB [id number] [facility] HealthCareOptions Supplement [place] [id number] Social History Type Description Quantity Date Captured Comments Alcohol Use Details Unknown Caffeine Use Details Unknown Tobacco Use Status No Information Smoking Status No Information Sex Female Chief Complaint And Reason For Visit From encounter dated '08/14/2022 12:30'. CRVO (chief complaint). Description: Referred by Dr. Velez for CVO. Patient awakened with poor vision OS. Went to [facility] and was admitted for stroke workup. Reason For Referral Reason For Referral No Information History Of Present Illness Encounter Date Complaint History Of Prese nt Illness CRVO Referred by Dr. Velez for CVO. Patient awakened with poor vision OS. Went to [facility] and was admitted for stroke workup. [...]
--- OUTSIDE RECORDS SUMMARY | 2023-10-29 07:00 | XMS_ITS ---
Author Organization [facility] Address [address] [place] [address] [address] [place] [address] Care Team Providers Care Building Inspector Name Role Phone Patt Joseph Primary Care Provider Allergies Allergen (clinical drug ingredient) Drug/Non Drug Allergy documented on EMR Reaction Allergy Type Onset Date Status ketorolac Toradol (uncoded) irregular hear t rate Allergy Active ketorolac Ketorolac Tromethamine Arrhythmia Drug Allergy Active tramadol Ultram nausea and vomiting Drug Allergy Active tizanidine Zanaflex stomach upset Drug Allergy Active prednisone Prednisone burned stomach sever Drug Allergy Active tizanidine Tizanidine hallucinations Drug Allergy Active tramadol Tramadol Hallucinating Drug Allergy Active corticosteroid and/or corticosteroid derivative (FN) Corticosteroids stomach upset Drug Allergy Active Non-steroidal anti-inflammatory agent (FN) NSAIDs GI Intolerance Drug Allergy Active REASON FOR VISIT New Patient Appointment (MACP) Encounters Encounter Location Date Provider Diagnosis [address] [address] 10/29/2023 Patt Joseph Assessments Encounter Date Diagnosis (ICD Code) Assessment Notes Treatment Notes Treatment Clinical Notes Section Notes 10/29/2023 Other I have reviewed and updated the HPI, Current Medications, PFSH, ROS and Preventive Medicine Screening done by my ancillary staff. Plan Of Treatment Treatment Notes Assessment Notes Other I have reviewed and updated the HPI, Current Medications, PFSH, ROS and Preventive Medicine Screening done by my ancillary staff. Progress Notes * DEUCE STORYOB: [birth year] (74 yo F)Acc No.[id number]:10/29/2023 Progress Notes Patient: JIM DAVE Provider: Barbara Morfin M.D. :1950 A ge:73 Y S ex:Female Date:10/29/2023 Address:[address] [place] [address], [id number] Subjective: * Chief Complaints: * 1 . New Patient Appointment (MACP). * HPI: C are of Older Adults: DME D o you use a DME company? - C oordination of Care: Providers and Specialists D o you have other providers/specialists? - D epression Screening: PHQ-2 (2015 Edition) T otal Score - * Medical History: H ypertension, Chronic bilateral low back pain, Type 2 diabetes, Raynaud's syndrome, Avitaminosis D, Disorder of peripheral nervous system, Mixed hyperlipidemia, GERD, Blurred vision left eye, Mild depression. * Surgical History: a ppendectomy , Cervical Fusion 2011, hysterectomy , Laparoscopic Gastric Banding , Lumbar Fusion 2017, tubal ligation . * Hospitalization/Major Diagno stic Procedure: c hildbirth , hysterectomy . * Social History: F ood Insecurities: F ood Insecurity Screener W ithin the past 12 months we worried whether our food would run out before we got money to buy more. _ ____ W ithin the past 12 months the food that we bought just didn't last and we didn't have money to get more. _ ____ F ood Bank resources offered? _ ____ M otor Vehicle Safety: D riving safety D o you wear a seatbelt? Y es T APS 1 Screening: T APS 1 I n the PAST 12 MONTHS, how often have you used any tobacco products? _ ____ I n the PAST 12 MONTHS, how often have you had 5 or more drinks containing alcohol in one day? (One standard drink is about 1 small glass of wine (5 oz), 1 beer (12 oz), or 1 singe shot of liquor. (Males only) _ ____ I n the PAST 12 MONTHS, how often have you had 4 or more drinks containing alcohol in one day? (One standard drink is about 1 small glass of wine (5 oz), 1 beer (12 oz), or 1 singe shot of liquor. (Females only) _ ____ I n the PAST 12 MONTHS, how often have you used any drugs including marijuana, cocaine or crack, heroin, methamphetamine (crystal meth), hallucinogens, ecstasy/MDMA? _ ____ I n the PAST 12 MONTHS, how often have you used any prescription medications just for the feeling, more than prescribed or that were not prescribed for you? Prescription medication that may be used this way: Opiate pain relievers (for example, OxyContin, Vicodin, Percocet, Methadone) Medications for anxiety or sleeping (for example, Xanax, Ativan, Klonopin) Medications for ADHD (for example, Adderall or Ritalin) _ ____ * Allergies: U ltram: nausea and vomiting - Side Effects - Criticality High, Zanaflex: stomach upset - Side Effects - Criticality Low, Toradol: irregular heart rate - Side Effects - Criticality High, Prednisone: burned stomach sever - Side Effects - Criticality High, Tramadol: Hallucinating - Side Effects - Criticality High, Corticosteroids: stomach upset - Side Effects - Criticality Low, Ketorolac Tromethamine: Arrhythmia - Side Effects - Criticality High, NSAIDs: GI Intolerance - Side Effects - Criticality High, Tizanidine: hallucinations - Side Effects - Criticality High. Objective: * Vitals: Assessment: Plan: * Treatment: * * Electronic signature of Jeremi Enriquez MD on 01/01/2025 at 09:32 PM EDT Sign off status: Pending * Provider: Barbara Morfin M.D. Date: 0 10/29/2023 Generated for Lennox fong/Shannon/eTransmitting on: 0 01/01/2025 09:32 PM EDT History and Physical Notes * HPI (History of Present Illness) Category Sub-Category Detail Notes Category Not es Care of Older Adults DME Do you use a DME company?: - Depression Screening PHQ-2 (2015 Edition) Total Score: - Coordination of Care Providers and Specialists D o you have other providers/speciali sts?: -
--- OUTSIDE RECORDS SUMMARY | 2025-01-01 21:31 | XMS_ITS | Continuity of Care Document ---
Author Organization [facility]. If a dditional information is needed, contact Health Information Management at [phone] [place] [address] Phone Care Team Providers Care Label Maker Name Role Phone Unavailable Unavailable Unavailable Unavailable Unavailable Unavailable Unavailable Unavailable Unavailable Unavailable Unavailable Unavailable Problems Cognitive impairment: None N one Onset:06-Oct-2020 Smoking status for patients 13 years old or older: 4 Never Smoker Onset:06-Oct-2020 Pneumonia caused by SARS-CoV -2 Onset:06-Oct-2020 Lawanda Gordillo MD Respiratory failure Onset:06-Oct-2020 Lawanda Gordillo MD Neurological Assessment WDP: Y Yes Onset:05-Apr-2016 Musculoskeletal Assessment W DP: Y Yes Onset:05-Apr-2016 Functional Assessment WDP: Y Yes Onset:01-Apr-2016 Allergies and Adverse Reactions tramadol(Allergy) Onset: 06-Oct-2020 Reaction:FLU LIKE SYMPTOMS Tizanidine(Allergy) Onset: 06-Oct-2020 Reaction:HALLUCINATIONS tramadol(Allergy) Onset: 01-Apr-2016 Reaction:/ Tizanidine(Allergy) Onset: 01-Apr-2016 Reaction:/ Medications dexAMETHasone 6 MG Oral Tablet;6 MILLIGRAM PO DAILY Start:10-Oct-2020 Comments:6 MG PO DAILY 50 ML glucose 500 MG/ML Prefilled Syringe;50 MILLILITERS INTRAVEN. ASDIR Quantity:1 Marina Blue MD Start:07-Oct-2020 Comments:[id number] Administration Instructions:GIVE PRN BS 0-65 MG/DL naloxone hydrochloride 0.4 MG/ML Injectable Solution;0.2 MILLIGRAM INTRAVEN. ASDIR Quantity:1 Marina Blue MD Start:06-Oct-2020 Comments:[id number] Administration Instructions:PRN RR < 8 or unresponsive to verbal or physical stimuli.Continue to monitor for resedation/respiratory depressionafter administration due to naloxone's short duration ofaction.Advancing respiratory depression bundleDefinition: receiving opioids and respiratory rate < 8 orunresponsive to verbal or physical stimuli1. Hold all opioids including removing patches and stoppinginfusions2. Administer naloxone 0.2mg PRN RR < 8 or unresponsive to NORVASC;5 MILLIGRAM PO DAILY Start:06-Oct-2020 Comments:5 MG PO DAILY guaiFENesin 400 MG Oral Tablet;400 MILLIGRAM PO DAILY Start:06-Oct-2020 Comments:400 MG PO DAILY gabapentin 800 MG Oral Tablet;800 MILLIGRAM PO TID Start:06-Oct-2020 Comments:800 MG PO TID methocarbamol 500 MG Oral Tablet;500 MILLIGRAM PO BID Start:06-Oct-2020 Comments:500 MG PO BID aspirin 325 MG Oral Tablet;3 25 MILLIGRAM PO DAILY Start:06-Oct-2020 Comments:325 MG PO DAILY acetaminophen 325 MG / HYDROcodone bitartrate 5 MG Oral Tablet;1 TABLET PO Q6H PRN Start:06-Oct-2020 Comments:1 TAB PO Q6H PRN As Needed for OSTEOARTHRITIS pantoprazole 40 MG Delayed Release Oral Tablet [Protonix];40 MILLIGRAM PO DAILY Start:06-Oct-2020 Comments:40 MG PO DAILY DULoxetine 60 MG Delayed Release Oral Capsule;60 MILLIGRAM PO BID Start:06-Oct-2020 Comments:60 MG PO BID azithromycin 250 MG Oral Tab let [Zithromax];250 MILLIGRAM PO DAILY Start:06-Oct-2020 Comments:250 MG PO DAILY cholecalciferol 0.025 MG Chewable Tablet;1000 UNIT PO DAILY Start:06-Oct-2020 Comments:1000 UNIT PO DAILY lisinopril 20 MG Oral Tablet [Prinivil];20 MILLIGRAM PO DAILY Start:06-Oct-2020 Comments:20 MG PO DAILY ZESTORETIC 20-25 MG TABLET;1 Start:03-Apr-2016 Comments:1 TAB PO DAILY CYMBALTA;60 Start:03-Apr-2016 Comments:60 MG PO BID MOTRIN;800 Start:03-Apr-2016 Comments:800 MG PO DAILY NORVASC;5 Start:03-Apr-2016 Comments:5 MG PO DAILY ASPIRIN;325 Start:03-Apr-2016 Comments:325 MG PO DAILY NEURONTIN;600 BEDTIME Start:03-Apr-2016 Comments:600 MG PO BEDTIME GLUCOPHAGE XR;500 C DIN Start:03-Apr-2016 Comments:500 MG PO C DIN LISINOPRIL-HCTZ 20-25 MG TAB ;1 Start:01-Apr-2016 Comments:1 TAB PO DAILY CYMBALTA;60 Start:01-Apr-2016 Comments:60 MG PO DAILY ASPIRIN;325 Start:01-Apr-2016 Comments:325 MG PO DAILY MOTRIN;800 Start:01-Apr-2016 Comments:800 MG PO DAILY GLUCOPHAGE XR;500 Start:01-Apr-2016 Comments:500 MG PO DAILY NORVASC;5 Start:01-Apr-2016 Comments:5 MG PO DAILY NEURONTIN;600 BEDTIME Start:01-Apr-2016 Comments:600 MG PO BEDTIME
[2025-01-01 21:32] VITALS: BP 150/84; PULSE 80; RESP 20; TEMP 36.6; O2SAT 98; BMI 36.0
--- OUTSIDE RECORDS SUMMARY | 2025-01-01 21:32 | XMS_ITS | Data Portability ---
Author Organization [place] - [facility] [place] & IMAN Ying ADMIN Address [address] [place] [id number] Care Team Providers [employer]eter[employer] Head Cook Name Role Phone [facility] Referring Provider MICHELLE BERMAN Primary Care Provider [phone] Assessment Encounter Date Assessment Date Assessment LastModified [...] SCS implant with Dr. Ilan Partida at [facility] in 2023 -Symptoms [...] and reviewed: reviewed and Appropriate Regina WEINER: [id number] E. As documented in the signed controlled [...] of developing and presence of these conditions). [email or web address] Not available 09/07/2024 16:09:58 09/28/2024 09/28/2024 Images [...] SCS implant with Dr. Ilan Partida at [facility] in 2023 -Symptoms [...] and reviewed: reviewed and Appropriate Regina WEINER: [id number] E. : As documented in the signed [...] of developing and presence of these conditions). [email or web address] Not available 09/28/2024 12:58:23 10/05/2024 10/05/2024 Images [...] SCS implant with Dr. Ilan Partida at [facility] in 2023 -Symptoms [...] and reviewed: reviewed and Appropriate Regina WEINER: [id number] E. : As documented in the signed [...] reported taking a 1 OTC gummi previously. [email or web address] Not available 10/05/2024 15:38:24 11/06/2024 11/06/2024 Images [...] SCS implant with Dr. Ilan Partida at [facility] in 2023 -Symptoms [...] SCS implant with Dr. Ilan Partida at [facility] in 2023 -Symptoms [...] informed the patient that the goal of [facility] will be to incorporate a multi-modal approach [...] and reviewed: reviewed and Appropriate Regina WEINER: [id number] E. : As documented in the signed [...] She no longer takes gummies. Not available 12/14/2024 16:21:49 Plan of Treatment Reminders Order Date Submit Date Provider Last Modified By Organization Details Last Modified Time Details Appointments OV EST 15 2024 11:30A Rula SANCHEZ PA-C Not available Not available Not available Lab drug screen, blood 2024 025 [email or web address] [facility] ([facility]), [address], [place], [address], 10/10/2024 10:07:56 drug screen, blood - 13 panel 2024 025 [email or web address] Not available 09/18/2024 10:43:50 Referral neurolog ical surgeon referral - patient had SCS implante d by an outside physicia n in 2023. 2 thoracic lead SCS implant that is position al. please eval for potentia l paddle lead candidat e 2024 025 [facility], [address], [address], [place], [address], 12/22/2024 04:11:34 Procedures injectio n, sacroili ac joint (PROC) - 14891-22 b/l Dx SIJ injectio n 2024 025 [email or web address] Roberto Vanessa DO, [address], [address], [place], [address], 12/18/2024 11:09:21 injectio n, sacroili ac joint (PROC) - 56588-66 b/l Dx SIJ injectio n 2024 025 [email or web address] Roberto Vanessa DO, [address], [address], [place], [address], 01/01/2025 15:03:58 nerve block, intercos bimal (PROC) - 54535, 49526 right T4-T6 intercos bimal nerve w/ U/s and fluoro 2024 025 [email or web address] Roberto Vanessa DO, [address], [address], [place], [address], 09/08/2024 11:42:00 Surgeries None recorded . Imaging XR, lumbar spine, 2 view - please evaluate for spondylo thesis, b/l pars defect and angular stabilit y, DDD, lumbosac ral transiti onal segment 2024 025 [email or web address] [facility] ([facility]), [address] [place], [address], 10/10/2024 10:07:45 Medication Orders hydrocod one 5 mg-aceta minophen 325 mg tablet 2024 025 [facility] [id number], [address] [place] [address], [address], 12/14/2024 12:37:30 hydrocod one 5 mg-aceta minophen 325 mg tablet 2024 025 [facility] [id number], [address] [place] [address], [address], 10/05/2024 14:21:30 Patient TargetsNo targets recorded. Patient [...] marsh noted testi ng perfo rmed at: [facility] [address] [employer] [place] [address] [phone] Federico tirado MD CLIA: [id number] Not Available [facility] ([facility] Registration) [address] , [place], [address], 09/15/2024 09:13:58 09/08/19 25 09/15/2024 DRUG SCREE N 16 W/CON F, WB tramadol, ia Negati ve NG/mL cutoff :50 Not Available [facility] ([facility] Registration) [address] [place], [address], 09/15/2024 09:13:58 09/08/19 25 09/15/2024 DRUG SCREE N 16 W/CON F, WB meperidine, ia Negati ve NG/mL cutoff :100 Not Available [facility] (Lab Registration) [address] [place], [address], 09/15/2024 09:13:58 09/08/19 25 09/15/2024 DRUG SCREE N 16 W/CON F, WB amphetamines , ia Negati ve NG/mL cutoff :50 Not Available [facility] ([facility] Registration) [address] [place], [address], 09/15/2024 09:13:58 09/08/19 25 09/15/2024 DRUG SCREE N 16 W/CON F, WB gabapentin, ia Negati ve ug/mL cutoff :1.0 Not Available [facility] ([facility] Registration) [address] [place], [address], 09/15/2024 09:13:58 09/08/1909/15/2024 DRUG SCREE N 16 W/CON F, WB carisoprodol , ia Negati ve ug/mL cutoff :0.5 This test was devel oped and its perfo rmanc e ilvia cteri stics deter mined by [facility]. It has not been clear ed or appro stephanie by the Food and Drug Admin istra tion. Perfo rmed at: [facility] [address] [place] [phone] Lab Direc tor: Ashlee uribe [facility] , Phone : [phone] Not Available [facility] ([facility] Registration) [address] [place], [address], 09/15/2024 09:13:58 09/08/19 25 09/15/2024 DRUG SCREE N 16 W/CON F, WB buprenorphin e, ia Negati ve NG/mL cutoff :1.0 Not Available [facility] ([facility]) [address] [place], [address], 09/15/2024 09:13:58 09/08/19 25 09/15/2024 DRUG SCREE N 16 W/CON F, WB fentanyl, ia Negati ve NG/mL cutoff :1.0 Not Available [facility] ([facility] Registration) [address] [place], [address], 09/15/2024 09:13:58 09/08/19 25 09/15/2024 DRUG SCREE N 16 W/CON F, WB opiates blood Negati ve NG/mL cutoff :5 Not Available [facility] ([facility]) [address] [place], [address], 09/15/2024 09:13:58 09/08/19 25 09/15/2024 DRUG SCREE N 16 W/CON F, WB oxycodone, unconjugated Negati ve NG/mL cutoff :5 Not Available [facility] ([facility]) [address] [place], [address], 09/15/2024 09:13:58 09/08/19 25 09/15/2024 DRUG SCREE N 16 W/CON F, WB cocaine, blood Negati ve NG/mL cutoff :25 Not Available [facility] ([facility] Registration) [address] [place], [address], 09/15/2024 09:13:58 09/08/19 25 09/15/2024 DRUG SCREE N 16 W/CON F, WB benzodiazepi ne, blood Negati ve NG/mL cutoff :20 Not Available [facility] ([facility]) [address] [place], [address], 09/15/2024 09:13:58 09/08/19 25 09/15/2024 DRUG SCREE N 16 W/CON F, WB THC (cannabinoid s), blood ++POSI TIVE++ NG/mL cutoff :5 delta Not Available [facility] ([facility]) [address] [place], [address], 09/15/2024 09:13:58 09/08/19 25 09/15/2024 DRUG SCREE N 16 W/CON F, WB barbiturates , blood Negati ve ug/mL cutoff :0.1 Not Available [facility] ([facility]) [address] [place], [address], 09/15/2024 09:13:58 09/08/19 25 09/15/2024 DRUG SCREE N 16 W/CON F, WB methadone, blood Negati ve NG/mL cutoff :25 Not Available [facility] ([facility]) [address] [place], [address], 09/15/2024 09:13:58 09/08/19 25 09/15/2024 DRUG SCREE N 16 W/CON F, WB phencyclidin e, blood Negati ve NG/mL cutoff :8 Not Available [facility] ([facility]) [address], [place], [address], 09/15/2024 09:13:58 09/08/19 25 09/15/2024 DRUG SCREE N 16 W/CON F, WB propoxyphene , blood Negati ve NG/mL cutoff :50 Not Available [facility] ([facility]) [address] [place], [address], 09/15/2024 09:13:58 09/29/19 25 09/28/2024 DRUG SCREE N 16 W/CON F, WB note Unles s other marsh noted testi ng perfo rmed at: [facility] [address] [place] [address] [phone] Federico tirado MD CLIA: [id number] Not Available [facility] ([facility]) [address] [place], [address], 10/04/2024 15:12:14 09/29/19 25 10/04/2024 DRUG SCREE N 16 W/CON F, WB tramadol, ia Negati ve NG/mL cutoff :50 Not Available [facility] ([facility]) [address] [place], [address], 10/04/2024 15:12:14 09/29/19 25 10/04/2024 DRUG SCREE N 16 W/CON F, WB meperidine, ia Negati ve NG/mL cutoff :100 Not Available [facility] ([facility]) [address] [place], [address], 10/04/2024 15:12:14 09/29/19 25 10/04/2024 DRUG SCREE N 16 W/CON F, WB amphetamines , ia Negati ve NG/mL cutoff :50 Not Available [facility] ([facility]) [address] [place], [address], 10/04/2024 15:12:14 09/29/19 25 10/04/2024 DRUG SCREE N 16 W/CON F, WB gabapentin, ia Negati ve ug/mL cutoff :1.0 Not Available [facility] ([facility]) [address] [place], [address], 10/04/2024 15:12:14 09/29/19 25 10/04/2024 DRUG SCREE N 16 W/CON F, WB carisoprodol , ia Negati ve ug/mL cutoff :0.5 This test was devroula weied and its perfo rmanc e livia cteri stics deter mined by [facility]. It has not been clear ed or appro stephanie by the Food and Drug Admin istra tion. Perfo rmed at: [facility] [address] [place] [phone] Lab Direc tor: Ashlee uribe [facility] , Phone : [phone] Not Available [facility] ([facility] Registration) [address] [place], [address], 10/04/2024 15:12:14 09/29/19 25 10/04/2024 DRUG SCREE N 16 W/CON F, WB buprenorphin e, ia Negati ve NG/mL cutoff :1.0 Not Available [facility] ([facility] Registration) [address] [place], [address], 10/04/2024 15:12:14 09/29/19 25 10/04/2024 DRUG SCREE N 16 W/CON F, WB fentanyl, ia Negati ve NG/mL cutoff :1.0 Not Available [facility] ([facility] Registration) [address], [place], [address], 10/04/2024 15:12:14 09/29/19 25 10/04/2024 DRUG SCREE N 16 W/CON F, WB opiates blood Negati ve NG/mL cutoff :5 Not Available [facility] ([facility] Registration) [address] [place], [address], 10/04/2024 15:12:14 09/29/19 25 10/04/2024 DRUG SCREE N 16 W/CON F, WB oxycodone, unconjugated Negati ve NG/mL cutoff :5 Not Available [facility] ([facility] Registration) [address], [place], [address], 10/04/2024 15:12:14 09/29/19 25 10/04/2024 DRUG SCREE N 16 W/CON F, WB cocaine, blood Negati ve NG/mL cutoff :25 Not Available [facility] ([facility] Registration) [address] [place], [address], 10/04/2024 15:12:14 09/29/19 25 10/04/2024 DRUG SCREE N 16 W/CON F, WB benzodiazepi ne, blood Negati ve NG/mL cutoff :20 Not Available [facility] ([facility] Registration) [address] [place], [address], 10/04/2024 15:12:14 09/29/19 25 10/04/2024 DRUG SCREE N 16 W/CON F, WB THC (cannabinoid s), blood Negati ve NG/mL cutoff :5 Not Available [facility] ([facility] Registration) [address] [place], [address], 10/04/2024 15:12:14 09/29/19 25 10/04/2024 DRUG SCREE N 16 W/CON F, WB barbiturates , blood Negati ve ug/mL cutoff :0.1 Not Available [facility] ([facility] Registration) [address] [place], [address], 10/04/2024 15:12:14 09/29/19 25 10/04/2024 DRUG SCREE N 16 W/CON F, WB methadone, blood Negati ve NG/mL cutoff :25 Not Available [facility] ([facility] Registration) [address] [place], [address], 10/04/2024 15:12:14 09/29/19 25 10/04/2024 DRUG SCREE N 16 W/CON F, WB phencyclidin e, blood Negati ve NG/mL cutoff :8 Not Available [facility] ([facility] Registration) [address] [place], [address], 10/04/2024 15:12:14 09/29/19 25 10/04/2024 DRUG SCREE N 16 W/CON F, WB propoxyphene , blood Negati ve NG/mL cutoff :50 Not Available [facility] ([facility] Registration) [address] [place], [address], 10/04/2024 15:12:14 09/29/19 25 09/28/2024 XR, lumba r spine No observ ation record ed. [email or web address] [facility] (Radiology) [address], [address], 10/02/2024 15:19:25 09/29/19 25 09/28/2024 XR, lumba r spine [facility] [address] [place] [address] Phone: Fax: Name: STEPHANIE SAXENA TTE Exam Date: 025 : [birth year] Age 74 years Gender : F Access ion: [id number] Physic padmini: CHENG VANESSA Facili ty: [facility] Facili ty HSV: Outpat ient Exam: [...] you for referr STEPHANIE Handley TTE to [facility]. Legall y authen ticate d by LEVON SALEEM MD 2024-0 09-28 13:01: 19 CC'ed Logic: Orderi ng Provid er: OTF Gilmore CC Provid er: STEVEN Garzon Attend ing Provid er: OTF Gilmore Referr ing Provid er: OTF Gilmore Admitt ing Provid er: OTF Gilmore [email or web address] [facility] ([facility]) [address] [place] [address] [place], [address], 10/02/2024 15:05:55 Result Notes Documentation Provider Name and Address Organization Details Recorded Time Xr, Lumbar Spine : [address] [place] [address] Name: DORA SAXENA Exam Date: 09/28/2024 : 1950 Age 74 years Gender: F Physician: ROBERTO VANESSA Facility: [facility] Facility HSV: Outpatient Exam: LUMBAR 5V [...] Thank you for referring DORA SAXENA to [facility]. Legally authenticated by LEVON SALEEM MD 2024-09-28 13:01:19 CC'ed Logic: Ordering Provider: OTF SCHMITT Provider: STEVEN Garzon Attending Provider: OTF VARGAS Referring Provider: OTF VARGAS Admitting Provider: NAOMI Oreilly IMAN [facility] & [place] 10/02/2024 15:05:55 Problems Name Problem SNOMED Code Status Onset Date Resolution Date Notes Provider Name and Address Organization Details Recorded Time Severe obesity 2076054011202 4 Active 2024 ROBERTO VANESSA DO [address] [place] [address], [address], NAOMI VALERIO [facility] & [place] 16:10:48 Chronic pain syndrome 401095171 Active 2024 ROBERTO VANESSA DO [address] [place] [address], [address], NAOMI VALERIO [facility] & [place] 16:10:49 [facility]u [facility] state finding 533069723 Active 2024 ROBERTO VANESSA [address], [place], [address], [place] - [facility] [place] & [place] 5 16:10:50 Spinal stenosis of lumbar region 39670289 Active 2024 ROBERTO VANESSA [address], [place], [place], [address] [place] [address] 1, [place] [facility] & [place] 5 16:10:50 Post-cristo ctomy syndrome 94025361 Active 2024 ROBERTO VANESSA [address], [place], [address] [place] [address] 1, [place] [facility] & [place] 16:10:57 Intercostal neuralgia 097643899 Active 2024 ROBERTO VANESSA [address], [place], [address] [place] [address] 1, [place] [facility] & [place] 5 16:11:34 Pain of intercostal space 553928680 Active 2024 ROBERTO VANESSA [address], [place], [address] [place] [address] 1, [place] [facility] & [place] 16:11:35 Lumbar spondylosis 039301204 Active 2024 ROBERTO VANESSA [address], [place], [address] [place] [address] 1, [place] [facility] & [place] 5 12:00:35 Inflammatio n of sacroiliac joint 56447908 Active 2024 ROBERTO VANESSA [address], [place], [address] [place] [address] 1, [place] [facility] & [place] 14:13:36 Problem Notes None recorded. Procedures Surgical History Date Name Laterality Status Provider Name and Address Organization Details Recorded Time 12/25/19 18 completed Nelly SALGADO - [facility] [place] 09/07/2024 11:28:15 10/25/19 18 Date of Last Colonoscopy completed Nelly SALGADO - [facility] - [place] & [place] 09/07/2024 11:28:15 01/01/20 18 EGD completed Nelly Duran [place] - [facility] - [facility] & [place] 09/07/2024 11:28:30 06/21/19 18 Colonoscopy completed Nelly Duran [place] [facility] [place] 09/07/2024 11:28:30 06/21/19 12 Neurosurgery completed Nelly Brown [place] - [facility] - [facility] & [place] 09/07/2024 11:28:30 06/21/19 06 Abdominal Surgery completed Nellyrodger Duran [place] - [facility] - [facility] & [place] 09/07/2024 11:28:30 06/21/19 06 Gastrointestinal Surgery completed Nellyrodger Duran [place] [facility] & [place] 09/07/2024 11:28:30 06/21/18 95 Breast Surgery completed Nelly Duran [place] - [facility] [place] 09/07/2024 11:28:30 06/21/18 94 Other completed Nelly Brown [place] - [facility] & [place] 09/07/2024 11:28:30 06/21/18 94 Metal Furnace Operator Surgery completed Nelly Duran [place] - [facility] & [place] 09/07/2024 11:28:30 06/21/18 73 Other completed Nelly Brown [place] - [facility] & [place] 09/07/2024 11:28:30 06/21/18 61 Appendectomy completed Nelly Duran [place] [facility] [place] 09/07/2024 11:28:30 Imaging Results None recorded. Procedure Notes None recorded. Medical Equipment None Reported. Allergies Allergen ID Allergen Name Allergen Category Reaction Reaction Severity Criticality Documentation Date Start Date Code Code System Note Provider Name and Address Organization Details Recorded Time 056525 tramadol medicatio n hallucina tions severe Not available 09/07/2024 98976 RxNorm Nelly jacobs, [place] - [facility] - [place] & [place] 11:28:11 668053 Zanaflex medicatio n anaphylax is confusion moderate moderate Not available 11/06/2024 84424 6 RxNorm Nelly Duran null, [place] - [facility] - [place] & [place] 05/19/202 5 15:28:00 Medications Name Sig Start [...] Address Organization Details Last Updated DateTime 5 81762.8 6 g 97.3 [degF] 99 % 99 % 71 /min 157/96 mm[Hg] [facility] & [place] 5 11:27:08 Date Recorded Body weight Body temperature Oxygen saturation Oxygen saturation in Arterial blood by Pulse oximetry Heart rate Systolic And Diastolic Provider Name and Address Organization Details Last Updated DateTime 5 03005.1 4 g 98.5 [degF] 99 % 99 % 75 /min 141/87 mm[Hg] [facility] & [place] 5 11:58:32 Date Recorded Body weight Body temperature Oxygen saturation Oxygen saturation in Arterial blood by Pulse oximetry Heart rate Systolic And Diastolic Provider Name and Address Organization Details Last Updated DateTime 5 98614.1 4 g 97.2 [degF] 99 % 99 % 68 /min 136/84 mm[Hg] [facility] & [place] 5 13:51:05 Date Recorded Body weight Body temperature Oxygen saturation Oxygen saturation in Arterial blood by Pulse oximetry Heart rate Systolic And Diastolic Provider Name and Address Organization Details Last Updated DateTime 5 10768.1 4 g 97 [degF] 95 % 95 % 69 /min 130/84 mm[Hg] [facility] & [place] 5 15:27:43 Date Recorded Body weight Body temperature Oxygen saturation Oxygen saturation in Arterial blood by Pulse oximetry Heart rate Systolic And Diastolic Provider Name and Address Organization Details Last Updated DateTime 5 98370.1 4 g 96.8 [degF] 97 % 97 % 71 /min 134/89 mm[Hg] Nelly SALGADO [facility] & [place] 5 10:57:48 Social History Question Answer Notes LastModified by [employer] Details LastModified Time Tobacco Smoking Status Never Smoker [facility]elly Duran null, [facility] [place] 09/07/2024 11:28:24 Do You Have An Advance Directive? No [email or web address] Information not available 09/07/2024 Are You Blind Or Do You Have Difficulty Seeing? No Information not available 09/07/2024 What Was The Date Of Your Most Recent Tobacco Screening? 09/06/2024 [email or web address] Information not available 09/07/2024 Are You Passively Exposed To Smoke? No Information not available 09/07/2024 Sex: Unknown Functional Status Question Answer Note LastModified by [employer] Details LastModified Time Do you use any illicit or recreational drugs? No [email or web address] Information not available 09/07/2024 What is your level of alcohol consumption? None [email or web address] Information not available 09/07/2024 Do you or have you ever used smokeless tobacco? Never used smokeless tobacco Information not available 09/07/2024 What is your exercise level? Occasional [email or web address] Information not available 09/07/2024 Mental Status Question Answer Note LastModified by Organization D etails LastModified Time Do you feel stressed (tense, restless, nervous, or anxious, or unable to sleep at night)? [id number] [email or web address] Information not available 09/07/2024 Family History Relationship [...] SNOMED-CT Code Diagnosis ICD10 Code Diagnosis Note [id number] ROBERTO VANESSA DO [facility] [address] [place] [address] 09/07/2024 11:01:59 09/07/2024 12:40:22 Spinal stenosis of lumbar region 73104293 M48.062 Postproced ural state finding 936740377 Z96.89 Chronic pain syndrome 37 9677719 G89.4 Severe obesity 263034765 1 9104 E66.813 E66.01 Z68.41 Post-carri ectomy syndrome 12433227 M96.1 Pain of in tercostal space 591494355 R07.82 Intercostal neuralgia 24 8811346 G58.8 [id number] ROBERTO VANESSA DO [facility] [place] [facility]- [address] [place] [address] 09/28/2024 11:12:05 09/28/2024 12:09:03 Spinal stenosis of lumbar region 71864086 M48.062 Postproced ural state finding 647997209 Z96.89 Chronic pain syndrome 37 6494849 G89.4 Severe obesity 762659634 1 9104 E66.813 E66.01 Z68.41 Post-carri ectomy syndrome 91953449 M96.1 Pain of in tercostal space 421364512 R07.82 Intercostal neuralgia 24 7039288 G58.8 Lumbar spondylosis 76699 0009 M47.320 [id number] ROBERTO VANESSA DO [facility]- [address] [place] [address] 10/05/2024 13:29:00 10/05/2024 14:47:23 Spinal stenosis of lumbar region 85349332 M48.062 Postproced ural state finding 903400099 Z96.89 Chronic pain syndrome 37 9137397 G89.4 Severe obesity 483580722 1 9104 E66.813 E66.01 Z68.41 Post-carri ectomy syndrome 86602508 M96.1 Pain of in tercostal space 456018654 R07.82 Intercostal neuralgia 24 9986394 G58.8 Lumbar spondylosis 24597 0009 M47.896 Inflammati on of sacroiliac joint 92844723 M46.1 [id number] NASRIN GUTIERREZ PA-C [facility]- [address] [place] [address] 11/06/2024 15:02:50 11/15/2024 09:15:24 Spinal stenosis of lumbar region 23732670 M48.062 Postproced ural state finding 483318322 Z96.89 Chronic pain syndrome 37 8478886 G89.4 Severe obesity 270983927 1 9104 E66.813 E66.01 Z68.41 Post-carri ectomy syndrome 89082005 M96.1 Pain of in tercostal space 048876895 R07.82 Intercostal neuralgia 24 5037257 G58.8 Lumbar spondylosis 67612 0009 M47.896 Inflammati on of sacroiliac joint 82385490 M46.1 [id number] ROBERTO VANESSA DO [facility]- [address] [place] [address] 12/14/2024 10:41:44 12/14/2024 11:39:51 Postprocedural state finding 935306933 Z96.89 Chronic pain syndrome 37 4392569 G89.4 Severe obesity 680592962 1 9104 E66.813 E66.01 Z68.41 Post-carri ectomy syndrome 77049036 M96.1 Pain of in tercostal space 507100262 R07.82 Intercostal neuralgia 24 1932961 G58.8 Inflammati on of sacroiliac joint 69181004 M46.1 Health Concerns Section Related Observation LastModified by Organization Detai ls LastModified Time None Recorded Concern Status LastModified by Organization Details LastModified Time None Recorded Advance Directives Directive N: Payers Insurance Date Sequence Insurance Name Policy Number Policy Thomas Covered Member ID Thomas Member ID Guarantor Name 07/07/2019 1 [place] Dora Saxena [id number] Dora Saxena 06/12/2020 SLIDING FEE SCHEDULE - DISCOUNT Dora Saxena 12/23/2024 1 [place] Dora Saxena [id number] 2 Dora Saxena Notes Date Note Type Note Provider Name and Address Organization Details Recorded Time 5 text/html Patient presented with chronic mid and low back pain for several years. She has an Van SCS which is providing adequate relief of her reffered symptoms in the b/l LE. This was placed in [facility] by Ilan Partida. Of [...] were made at that time. Referral: Michelle JONES-[facility]- s/p C4-C6 ACDF in 2011 and s/p L5-S1 transforaminal lumbar interbody fusion in 2018- s/p Van SCS implant with Dr. Ilan Partida at [facility]- DM, Raynaud's, Obesity [...] NoneWork Status: unemployed ROBERTO VANESSA, DO [address] [facility], [place], [address], [facility] 09/07/2024 16:13:21 5 text/html Patient presented with chronic mid and low back pain for several years. She has an Van SCS which is providing adequate relief of her reffered symptoms in the b/l LE. This was placed in [facility] at [facility] by Ilan Partida. 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 Ilan Partida at [facility]- DM, Raynaud's, Obesity [...] NoneWork Status: unemployed ROBERTO VANESSA, DO [address] [facility], [place], [address] & [place] 09/28/2024 16:25:43 5 text/html Patient presented with chronic mid and low back pain for several years. She has an Van SCS which is providing adequate relief of her reffered symptoms in the b/l LE. This was placed in Psychiatric at [facility] by Ilan Partida. 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 She takes Lyrica Rx by her PCP Referral: Michelle JONES-[facility]- s/p C4-C6 ACDF in 2011 and s/p L5-S1 transforaminal lumbar interbody fusion in 2018- s/p Van SCS implant with Dr. Ilan Partida at [facility]- DM, Raynaud's, Obesity [...] NoneWork Status: unemployed ROBERTO VANESSA, DO [address], [place], [address], [facility] & [place] 10/05/2024 15:38:34 5 text/html Patient presented with chronic mid and low back pain for several years. She has an Van SCS which is providing adequate relief of her reffered symptoms in the b/l LE. This was placed in Psychiatric at [facility] by Ilan Partida. 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 She takes Lyrica Rx by her PCP Referral: Michelle JONES-[facility] - S/p C4-C6 ACDF in 2011 and s/p L5-S1 transforaminal lumbar interbody fusion in 2018- S/p Van SCS implant with Dr. Ilan Partida at [facility]- DM, Raynaud's, Obesity [...] restore function/mobility/quality of life. Previous Injections with [facility]/: Right T4-T6 with ultrasound and fluoroscopic imagin% [...] NoneAntiplatelets: NoneWork Status: unemployed NASRIN GUTIERREZ PA-C [address] [place] [address], [address], [facility] [place] & [place] 11/07/2024 12:34:26 5 text/html Patient presented with chronic mid and low back pain for several years. She has an Van SCS which is providing adequate relief of her reffered symptoms in the b/l LE. This was placed in Psychiatric at [facility] by Ilan Partida. 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 She takes Lyrica Rx by her PCP Referral: Michelle JONES-[facility]- S/p C4-C6 ACDF in 2011 and s/p L5-S1 transforaminal lumbar interbody fusion in 2017- S/p Van SCS implant with Dr. Ilan Partida at [facility]- DM, Raynaud's, Obesity [...] restore function/mobility/quality of life. Previous Injections with [facility]3: Right T4-T6 with ultrasound and fluoroscopic imagin% [...] 6Anticoagulation: NoneAntiplatelets: NoneWork Status: unemployed ROBERTO VANESSA, [address], [place], [address], [facility] - [facility] - [place] & [place] 12/14/2024 16:21:58 OBGyn Episode No OBEpisode recorded.
--- OUTSIDE RECORDS SUMMARY | 2025-01-01 21:33 | XMS_ITS | Data Portability ---
Author Organization [facility] Address [address] [place] [address] Assessment No assessment recorded. Plan of Treatment Reminders Order Date Submit Date Provider Last Modified By Organization Details Last Modified Time Details Appointments FOLLOW UP 15 2024 04:45P M Michelle Monet PA-C Not available Not available Not available Lab HbA1c (hemoglob in A1c), blood [address], [address] [facility], [place], [address], 12/14/2024 17:57:29 Referral pain managemen t referral 2024 025 [facility], [address] [place] [address] Justin Larson, [place], [address], 09/13/2024 15:58:26 Procedures home sleep testing (PROC) [address] [facility], [address], [place], [address], 01/01/2025 13:17:58 Surgeries None recorded. Imaging XR, thoracic spine, 3 view 2024 025 [facility] Scheduling Department -New Scheduling Process, [address], [place], [address], 08/31/2024 10:50:35 Medication Orders phentermi ne 37.5 mg tablet 2024 025 [facility] [id number], [address] [place], [address], 12/14/2024 15:22:52 Patient TargetsNo targets recorded. Patient Instructions Encounter Date Encounter Id Patient Instructions Last Modified By Organization Details Last Modified Time 08/24/2024 [id number] healthy upper back: exercises [email or web address] Not available 08/24/2024 15:40:37 12/14/2024 [id number] learning about high blood sugar [email or web address] Not available 12/14/2024 17:55:49 snoring: care instructions [email or web address] Not available 12/14/2024 15:22:25 body mass index: care instructions [email or web address] Not available 12/14/2024 15:22:46 learning about healthy weight Not available 12/14/2024 15:22:46 Reason for Referral Pain Management Referral for Thoracic back pain Referring Physician: Michelle Monet, Family Medicine, Encounter Date: 08/24/2024 Results Created Date Observation Date Name Description Value Unit Range Abnormal Flag Note LastModifiedBy Organization Detail LastModifiedTime 12/15/19 25 12/14/2024 HbA1c (hemo globi n A1c), blood HbA1c 6.0 % Not Available [facility] [address] [facility], [place], [address], 12/14/2024 17:55:00 09/01/19 25 08/29/2024 XR, thora cic spine , 3 view No observ ation record ed. [facility] (Med Record) [address], [place], [address], 09/01/2024 14:21:59 Result Notes None recorded. Problems Name Problem SNOMED Code Status Onset Date Resolution Date Notes Provider Name and Address Organization Details Recorded Time Thoracic back pain 763980607 Active 2024 KAREN Tejada [address] [place] [address], [address], [facility] [employer] 15:40:12 09908255 Active 2024 Celine Miles null, [employer] 13:40:49 Mild major depression, single episode 97735021 Active 2024 KAREN Tejada [address] [place] [address], [address], [employer] 13:50:53 Snoring 80360091 Active 2024 KAREN Tejada [address] [place] [address], [address], [employer] 15:20:17 Hyperglycemia 41332787 Active 2024 KAREN Tejada [address] [place] [address], [address], [employer] 17:54:58 Problem Notes None recorded. Procedures Surgical History Date Name Laterality Status Provider Name and Address Organization Details Recorded Time 09/22/19 20 Most Recent Mammogram completed [employer] 08/24/2024 15:07:32 Appendectomy completed [employer] 08/24/2024 15:07:33 Back Surgery completed [employer] 08/24/2024 15:07:33 Breast Biopsy completed [employer] 08/24/2024 15:07:[address] [employer] 08/24/2024 15:07:33 Hysterectomy completed [employer] 08/24/2024 15:07:33 Neurosurgery completed [employer] 08/24/2024 15:07:33 Tubal Ligation completed [employer] 08/24/2024 15:07:33 Dilation and Curettage completed [employer] 08/24/2024 15:07:33 Orthopedic Surgery completed [employer] 08/24/2024 15:07:33 Endometrial Biopsy completed [employer] 08/24/2024 15:07:33 Cosmetic Surgery completed [employer] 08/24/2024 15:07:33 Total Hysterectomy completed [employer] 08/24/2024 15:07:33 Imaging Results None recorded. Procedure Notes None recorded. Medical Equipment None Reported. Allergies Allergen ID Allergen Name Allergen Category Reaction Reaction Severity Criticality Documentation Date Start Date Code Code System Note Provider Name and Address Organization Details Recorded Time 35159 aspirin medicatio n other Not available Not available 08/24/2024 1191 RxNorm [employer] 15:07:32 45728 Product containin g glucocort icoid (product) medicatio n Not available Not available Not available 08/24/2024 89975 6006 SNOMED [employer] 15:21:02 14949 Zanaflex medicatio n Not available Not available Not available 12/14/2024 76528 6 RxNorm Brooke Mygeni, [employer] 14:57:42 21413 tramadol medicatio n Not available Not available Not available 12/14/2024 99014 RxNorm Brooke Mygeni, [employer] 14:58:00 Medications Name Sig Start Date [...] Address Organization Details Last Updated DateTime 5 68375.2 9 g 37.5 kg/m2 162.56 cm 95 % 95 % 64 /min 97.8 [degF] 146/80 mm[Hg] 142/80 mm[Hg] Madelaine Rose [employer] 15:20:26 Date Recorded Body height Body mass index (BMI) Body weight Oxygen saturation Oxygen saturation in Arterial blood by Pulse oximetry Heart rate Body temperature Systolic And Diastolic Provider Name and Address Organization Details Last Updated DateTime 5 162.56 cm 37.8 kg/m2 41787.3 2 g 97 % 97 % 60 /min 98.3 [degF] 103/67 mm[Hg] Brooke Harris [employer] 15:02:02 Social History Question Answer Notes LastModified by Organizat ion Details LastModified Time Tobacco Smoking Status Never Smoker Madelaineyi jacobs [employer] 08/24/2024 15:07:32 Do You Have An Advance [...] Information not available 08/24/2024 What Type Of Film Processing Supervisor Do You Use? None Information not available [...] Do You Have A Medical Power Of Strong Nitric Operator? No Information not available 08/24/2024 What Was The Date Of Your Most Recent Tobacco Screening? 12/14/2024 [email or web address] Information not available 12/14/2024 Do You Have [...] Functional Status Question Answer Note LastModified by [employer] Details LastModified Time Do you use [...] anxious, or unable to sleep at night)? [id number] Information not available 08/24/2024 Do you have [...] History Condition Response Coronary Artery Disease N Other Y Gout N Kidney Stones N Blood Diseases N Hyperthyroidism N Breast Cancer N Blood Transfusion N Emergency room visit since last appointm ent. N Hypothyroidism N Lung Disease N Dermatologic Disorders N COPD N Depression Y Developmental or Behavioral Disorders N Defects or Inherited Disease N Breast Problem N Difficulty Swallowing N [...] N High Cholesterol Y Liver Disease N Psychiatric/Mental Health Condition N Organ Transplant N Fibromyalgia N Dialysis N Schizophrenia N [...] N Pulmonary Embolism N Tourette Syndrome N Pre-Eclampsia N Hypertension Y Chronic Ear Infections N Osteoporosis N Chicken Pox N Autism Spectrum Disorder (ASD) N Thrombophilias N Gynecological History Statement/Question Response [...] mcg/0.25mL dose 09/05/2020 completed Madelaine Vice null, [employer] 08/24/2024 15:07:42 COVID-19, mRNA, LNP-S, PF, 50 mcg/0.5 mL 09/22/2023 completed Madelaine Vice null, [employer] 08/24/2024 15:07:42 Influenza, high-dose, trivalent, PF 04/20/2024 completed Madelaine Vice null, [employer] 08/24/2024 15:07:42 Past Encounters Encounter ID Performer Location Encounter Start Date Encounter Closed Date Diagnosis/Indication Diagnosis SNOMED-CT Code Diagnosis ICD10 Code Diagnosis Note [id number] KAREN Tejada [address] [address] 08/24/2024 14:30:09 08/24/2024 15:49:28 Thoracic back pain 959855309 M54.6 Will obtain Xray to r/o compressio n fractureNe w pain management referral [id number] Michelle Monet [facility] [address] [place] [address] 12/14/2024 14:43:36 12/14/2024 15:23:18 Snoring 76567872 R06.83 Body mass index 30+ - obesity 697735502 Z68.37 Hyperglycemia 66728813 R 73.9 Health Concerns Section Related Observation LastModified by Organization Detai ls LastModified Time None Recorded Concern Status LastModified by Organization Details LastModified Time None Recorded Advance Directives Directive N: Payers Insurance Date Sequence Insurance Name Policy Number Policy Thomas Covered Member ID Thomas Member ID Guarantor Name 12/01/2024 1 [place] Dora Saxena [id number] 2 Dora Saxena 12/01/2024 MEDICARE A-[place]: [employer] [facility] Dora Saxena [id number] 2 Dora Saxena Notes Date Note Type [...] SCS was put in by [facility]. She is currently unable [...] her for her pain. KAREN Tejada [address] [place], [address], [employer] 08/24/2024 17:50:46 12/14/2024 text/html Patient would li ke to have her HgA1c checked. States that her blood sugar has been higher at home.Would like to discuss options for weight loss.States that she is always tired. Brother notes that she snores.Blood pressure is well controlled. Denies headache, chest pain, vertigo, dyspnea. KAREN Tejada [address] [place], [address], [employer], [employer] 12/15/2024 15:53:08 OBGyn Episode Ob Episode Information Episode Created Date Number of Fetuses Patient Bloodtype Patient rh Status Prepregnancy Weight lbs Domestic Partner Domestic Partner Phone Father Name Scrub Nurse Status 11/10/19 25 1 OPEN Fetus Data First Name Last Name Admitted to NICU Weight (g) Sex Living Outcome Pediatric Complications Fetus ID Race Codes Race Delivery Type [id number] Sam Calculation Initial Sam Date Initial Exam Date Initial Exam Provider Initial Ultrasound Date Last Menstrual Period Date Ultra Sound Weeks Gestation 11/09/2024 0 Eighteen To Twenty Week Sam Update Ultra Sound Date Fundal Height At Umbil Quickening Date Ultra Sound Latest Weeks Gestation Final Sam Confirmed By Final Sam Confirmed Date Final Sam Date Ultra Sound Latest Days Gestation 0 0 Pre- Flowsheet Flowsheet Date 12/14/2024 Verdugo Score Blood Edema Fundus Height Fundus Units Glucose Ketones Leukocytes Nitrite Labor Signs Protein Cervic Dilation Cervic Effacement Cervic Station Type Weight in lbs Pre/Post Dialysis Refused Weight 220.127634491252 BP Diastolic BP Location Tested BP Systolic [...]
--- OUTSIDE RECORDS SUMMARY | 2025-01-01 21:33 | XMS_ITS | Clinical Summary ---
Author Organization Healthcare Address [address] [place] [address] Care Team Providers Care Blank Driller Name Role Phone MariselaJennifer raines Michell CHAMBERS Primary Care Provider [phone] Allergies Active Allergy Reactions Criticality Noted Date [...] 1 (one) time per week. Wednesdays Active [place]-3 Fatty Acids (OMEGA-3 CF PO) Take 4 [...] Screening 1950 [facility]-Medicare Annual Wellness (AWV) 1950 [facility]-Infant/Child/Adol SDOH Screenings 1950 [facility]- SDOH Screenings 1970 [facility]-Adult SDOH Screenings 1970 [facility]-DTaP,Tdap,and Td Vaccines (1 - Tdap) 09/22/1971 CT Colonography 1997 Colonoscopy 1997 FIT-DNA 1997 FIT 1997 FOBT 1997 Sigmoidoscopy 1997 [facility]-Colorectal Cancer Screening 1997 [facility]-Breast Cancer Screening 2002 [facility]-Zoster Vaccines (1 of 2) 2002 HSG-DNDHS-26 Vaccine ( season) 2024 09/22/2023, 12/30/2020, 12/24/2020, [...] Adults <6.0% Children and Adolescents <7.5% Source: [place] [employer]. Standards of medical care in diabetes,2017. Diabetes Care.2017:40 (suppl 1):S1-S135. HbA1c assay performed by an ion-exchange chromatography method that is certified traceable to the DCCT. us Anamika Aguilera MD LAB BLOOD ORDERABLES Final Res ult Performing Organization Address City/[facility]/ZIP Co de Phone Number [facility]ALTHCARE [facility] [address] [place] [address] * Hepatitis C Antibody - ED (12/13/2023 11:56 PM EDT) Hepatitis C Antibody Negative Negative 12/14/2023 12:59 AM EDT [facility]ALTH[facility]ARE [facility] Blood Venous blood specimen / Unknown Venipuncture / Unknown 12/13/2023 11:56 PM EDT 12/14/2023 12:17 AM EDT us Kalyan Ceron MD LAB BLOOD ORDERABLES Final Res ult [facility] [address] [place] [address] from Last 3 Months or Most Recently Relevant to Health Maintenance Insurance MEDICARE Advance Directives * Full Code (Latest Code Status on File) Date Activated Date Inactivated Comments 12/13/2023 11:33 PM 12/15/2023 2:09 PM Question Answer Comments Patient has decision-making capacity? Yes Care Teams Blank Driller Relationship Specialty Start Date End Date Jennifer Antonio APRN PCP - General 12/13/23
--- OUTSIDE RECORDS SUMMARY | 2025-01-01 21:33 | XMS_ITS | Data Portability ---
Author Organization [facility] KRISSY KrishnaS [place] Address [address] [facility] [address] [place] [address] Care Team Providers Care Restaurant Greeter Name Role Phone CELIO BARROW OTHER Assessment [...] 2% Bupivacaine 2%) 2019 020 [address] [facility], [address] [place] [address] 110, [place], [place], [phone], 0 07:30:17 Patient TargetsNo targets recorded. Patient Instructions Encounter Date Encounter Id Patient Instructions Last Modified By Organization Details Last Modified Time 02/28/2020 [id number] osteoarthritis: care instructions [email or web address] Not available 02/28/2020 15:32:46 Reason for Referral None Reported. Medical Equipment None Reported. Allergies Allergen ID Allergen Name Allergen Category Reaction Reaction Severity Criticality Documentation Date Start Date Code Code System Note Provider Name and Address Organization Details Recorded Time 125216 Ultram medicatio n Not available Not available Not available 02/28/2020 67991 6 RxNorm Heidi Cheyaya [facility] 0 15:02:23 420684 Zanaflex medicatio n Not available Not available Not available 02/28/2020 06125 6 RxNorm Heidi Cheek [facility] 0 15:02:38 Medications Name Sig Start Date [...] Address Organization Details Last Updated DateTime 02/28/2020 07877.54 g 18 /min 54 /min 144/90 mm[Hg] Heidi Thorne [facility] 02/28/2020 15:11:38 Social History Question Answer Notes LastModified by [employer] Details LastModified Time Tobacco Smoking Status Never Smoker Heidi Thorne [facility] 02/28/2020 15:08:01 How Much Tobacco Do You Chew? None Information not available 02/28/2020 What Was The Date Of Your Most Recent Tobacco Screening? 02/28/2020 Information not available 02/28/2020 How Much Tobacco Do You Smoke? No Information not available 02/28/2020 How Many Years Have You Smoked Tobacco? 0 Information not available 02/28/2020 Sex: Unknown Functional Status Question Answer Note LastModified by [employer] Details LastModified Time Do you or have you ever used smokeless tobacco? Never used smokeless tobacco Information not available 02/28/2020 Do you or have you ever used e-cigarettes or vape? Never used electronic cigarettes Information not available 02/28/2020 Mental Status None recorded. Family History Nothing Reported. Medical History Condition Response Emphysema N COPD N Arthritis Y Acid Reflux (GERD) Y Rheumatoid Arthritis N Bleeding Disorder N Asthma N Diabetes Y Heart Disease N Hypertension Y Gynecological HistoryNo gynecological history recorded. Obstetrics History GPAL:G 0 P 0 0 0 0 Past Encounters Encounter ID Performer Location Encounter Start Date Encounter Closed Date Diagnosis/Indication Diagnosis SNOMED-CT Code Diagnosis ICD10 Code Diagnosis Note [id number] RINA AYLA SHELBY MD [facility] [address] [place] [address] 02/28/2020 14:49:59 02/28/2020 15:35:26 Raynaud's phenomenon 805081129 I73.00 69-year-ol d female with chronic painful [...] especially during the peng. Generalize d osteoarthritis 414534747 M15.9 her musculoske letal examinatio n is [...] Thomas Member ID Guarantor Name 03/04/2020 1 [place] Dora Saxena [id number] 2 Dora Saxena Notes Date Note Type [...] She doesn't drink alcohol. RINA SHELBY MD [address] [place] [address], [phone], [facility] 02/28/2020 16:38:01 OBGyn Episode No OBEpisode recorded.
--- OUTSIDE RECORDS SUMMARY | 2025-01-01 21:33 | XMS_ITS | Patient Health Record ---
Author Organization UNLISTED FACILITY Address [address] [place] [address] [place] [address] Care Team Providers Care Freight Car Repairer Name Role Phone Patt Joseph Primary Care [...] eye Mild depression Surgical History Surgery Date(Month/Year) appendectomy Cervical Fusion 2011 hysterectomy Laparoscopic Gastric Banding Lumbar Fusion 2018 tubal ligation Hospitalization History Reason Date(Month/Year) hysterectomy childbirth
--- OUTSIDE RECORDS SUMMARY | 2025-01-01 21:33 | XMS_ITS | Continuity of Care Document ---
Author Organization [place] - [facility] - [place] & [facility]- [place] New Address [address] [address] Care Team Providers Care Satellite Installation Technician Name Role Phone [facility] Referring Provider MICHELLE BERMAN Primary Care Provider [...] SCS implant with Dr. Ilan Partida at [facility] in 2023 -Symptoms in [...] Details Appointments OV EST 15 025 11:30AM DI SANCHEZ PA-C Not available Not available Not available Lab None record ed. Referral None record ed. Procedures None record ed. Surgeries None record ed. Imaging None record ed. Medication Orders None record ed. Patient TargetsNo targets recorded. Patient Instructions Encounter Date Encounter Id Patient Instructions Last Modified By Organization Details Last Modified Time 11/06/2024 [id number] I have discussed in great detail our [...] Address Organization Details Recorded Time Severe obesity 2202458192593 4 Active 2024 SAM VANESSA [address], [place], [place], [address] [place] [address] 1, [place] - [place] - [place] & [place] 5 16:10:48 Chronic pain syndrome 779260448 Active 2024 SAM VANESSA [address], [place], [place], [address] [place] [address] 1, [place] & [place] 5 16:10:49 Postprocedu ral state finding 533966856 Active 2024 SAM VANESSA [address], [place], [address] [place] [address] 1, [place] 5 16:10:50 Spinal stenosis of lumbar region 59271254 Active 2024 SAM VANESSA [address], [place], [address] [place] [address] 1, [place] 5 16:10:50 Post-cristo ctomy syndrome 67923527 Active 2024 SAM VANESSA [address], [place], [address] [place] [address] 1, [place] & [place] 5 16:10:57 Intercostal neuralgia 213505233 Active 2024 SAM VANESSA [address], [place], [address] [place] [address] 1, [place] 5 16:11:34 Pain of intercostal space 500463110 Active 2024 SAM VANESSA [address], [place], [address] [place] [address] 1, [place] 5 16:11:35 Lumbar spondylosis 766120722 Active 2024 SAM VANESSA [address], [place], [address] [place] [address] 1, [place] & [place] 5 12:00:35 Inflammatio n of sacroiliac joint 29879680 Active 2024 SAM VANESSA [address], [place], [address] [place] [address] 1, [place] & [place] 14:13:36 Problem Notes None recorded. Procedures Surgical History Date Name Laterality Status Provider Name and Address Organization Details Recorded Time 12/25/19 18 completed Nelly Brown [place] - [facility] - [place] & [place] 09/07/2024 11:28:15 10/25/19 18 Date of Last Colonoscopy completed Nelly Brown [place] & [place] 09/07/2024 11:28:15 06/21/19 18 EGD completed Nelly Brown [place] [facility] & [place] 09/07/2024 11:28:30 06/21/19 18 Colonoscopy [place] Nelly Brown [place] & [place] 09/07/2024 11:28:30 06/21/19 12 Neurosurgery [place] Nelly Brown [place] & [place] 09/07/2024 11:28:30 06/21/19 06 Abdominal Surgery completed Nelly Brown [place] & [place] 09/07/2024 11:28:30 06/21/19 06 Gastrointestinal Surgery completed Nelly Brown [place] & [place] 09/07/2024 11:28:30 06/21/18 95 Breast Surgery completed Nelly Brown [place] & [place] 09/07/2024 11:28:30 06/21/18 94 Other completed Nelly Brown [place] [facility] & [place] 09/07/2024 11:28:30 06/21/18 94 Capping Machine Operator Surgery completed Nelly Brown [place] [facility] [facility] & [place] 09/07/2024 11:28:30 06/21/18 73 Other completed Nelly Brown [place] [facility] [facility] & [place] 09/07/2024 11:28:30 06/21/18 61 Appendectomy completed Nelly Brown [place] [facility] [facility] & [place] 09/07/2024 11:28:30 Imaging Results None recorded. Procedure Notes None recorded. Medical Equipment None Reported. Allergies Allergen ID Allergen Name Allergen Category Reaction Reaction Severity Criticality Documentation Date Start Date Code Code System Note Provider Name and Address Organization Details Recorded Time 527009 tramadol medicatio n hallucina tions severe Not available 09/07/2024 91685 RxNorm NAOMI Rai [facility] & [place] 11:28:11 256901 Zanaflex medicatio n anaphylax is confusion moderate moderate Not available 11/06/2024 02136 6 RxNorm NAOMI Rai L[facility] & [place] 15:28:00 Medications Name Sig Start Date Stop [...] mL 31 gauge x 5/16 USE DIRECTED active Not Available Not Available No t Available Vitals Date Recorded Body weight Body temperature Oxygen saturation Oxygen saturation in Arterial blood by Pulse oximetry Heart rate Systolic And Diastolic Provider Name and Address Organization Details Last Updated DateTime 5 92196.1 4 g 97 [degF] 95 % 95 % 69 /min 130/84 mm[Hg] Nelly Montes [facility] & [place] 15:27:43 Social History Question Answer Notes LastModified by [employer] Details LastModified Time Tobacco Smoking Status Never Smoker NAOMI Rai [facility] & [place] 09/07/2024 11:28:24 Do You Have An Advance Directive? No [email or web address] Information not available 09/07/2024 Are You Blind Or Do You Have Difficulty Seeing? No Information not available 09/07/2024 What Was The Date Of Your Most Recent Tobacco Screening? 09/06/2024 [email or web address] Information not available 09/07/2024 Are You Passively Exposed To Smoke? No [email or web address] Information not available 09/07/2024 Sex: Unknown Functional Status Question Answer Note LastModified by Organizat ion Details LastModified Time Do you use any illicit or recreational drugs? No [email or web address] Information not available 09/07/2024 What is your level of alcohol consumption? None Information not available 09/07/2024 Do you or have you ever used smokeless tobacco? Never used smokeless tobacco [email or web address] Information not available 09/07/2024 What is your exercise level? Occasional [email or web address] Information not available 09/07/2024 Mental Status Question Answer Note LastModified by Organization D etails LastModified Time Do you feel stressed (tense, restless, nervous, or anxious, or unable to sleep at night)? [id number] [email or web address] Information not available 09/07/2024 Family History Relationship [...] available 09/06/2024 12:15:43 Medical History Condition Response GI Problems Y Spine Problems Y Obstructive Sleep Apnea Y Diabetes Y Obesity Y Vision or Eye Problems Y Arthritis Y Acid Reflux (GERD) Y Back Problems Y Reflux/GERD Y High Cholesterol Y Headaches Y Hypertension Y Gynecological History Statement/Question Response Abnormal Pap N 12/24/2017 Date of Last Colonoscopy 10/24/2017 Date of LMP 08/23/1994 Sexually Active? N Menses Monthly N Age at Menarche 14 Obstetrics History GPAL:G 0 P 0 0 0 0 Past Encounters Encounter ID Performer Location Encounter Start Date Encounter Closed Date Diagnosis/Indication Diagnosis SNOMED-CT Code Diagnosis ICD10 Code Diagnosis Note [id number] NASRIN GUTIERREZ PA-C [facility]- [address] [place] [address] 11/06/2024 15:02:50 11/15/2024 09:15:24 Spinal stenosis of lumbar region 40035291 M48.062 Postproced ural state finding 735671405 Z96.89 Chronic pain syndrome 37 2247247 G89.4 Severe obesity 852950610 1 9104 E66.813 E66.01 Z68.41 Post-carri ectomy syndrome 79695435 M96.1 Pain of in tercostal space 740926851 R07.82 Intercostal neuralgia 24 5212032 G58.8 Lumbar spondylosis 68734 0009 M47.896 Inflammati on of sacroiliac joint 09215117 M46.1 Health Concerns Section Related Observation LastModified by Organization Detai ls LastModified Time None Recorded Concern Status LastModified by Organization Details LastModified Time None Recorded Payers Encounter Date Sequence Insurance Name Policy Number Policy Thomas Covered Member ID Thomas Member ID Guarantor Name 11/06/2024 1 [place]ICARE-[place] Dora Saxena [id number] 2 Dora Saxena Notes Date Note Type Note Provider Name and Address Organization Details Recorded Time text/html Patient presented with chronic mid and low back pain for several years. She has an Van SCS which is providing adequate relief of her reffered symptoms in the b/l LE. This was placed in [facility] at [facility] pain [facility] spine by Ilan Partida. 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 She takes Lyrica Rx by her PCP Referral: [facility] - S/p C4-C6 ACDF in 2011 and s/p L5-S1 transforaminal lumbar interbody fusion in 2018- S/p Van SCS implant with Dr. Ilan Partida at [facility]- DM, Raynaud's, Obesity Interval [...] NoneAntiplatelets: NoneWork Status: unemployed NASRIN GUTIERREZ PA-C [address] [place] [address], [phone], [facility] & [place] 11/07/2024 12:34:26 OBGyn Episode No OBEpisode recorded.
--- OUTSIDE RECORDS SUMMARY | 2025-01-01 21:33 | XMS_ITS | Continuity of Care Document ---
Author Organization [place] - [facility] - [place] & [facility]- [place] New Address [address] [address] Care Team Providers Care Video Game Technician Name Role Phone [facility] Referring Provider MICHELLE BERMAN Primary Care Provider Assessment Encounter Date Assessment Date Assessment LastModified by Organization Details LastModified Time 12/14/2024 12/14/2024 Images reviewed today Thoracic Xrays: [...] [facility] -Symptoms [...] informed the patient that the goal of [facility] will be to incorporate a multi-modal approach [...] and reviewed: reviewed and Appropriate Regina WEINER: [id number] E. : As documented in the signed [...] gummi previously. She no longer takes gummies. [email or web address] Not available 12/14/2024 16:21:49 Plan of Treatment Reminders Order Date Submit Date Provider Last Modified By Organization Details Last Modified Time Details Appointments OV EST 15 2024 11:30A Rula SANCHEZ PA-C Not available Not available Not available Lab None recorded . Referral neurolog ical surgeon referral - patient had SCS implante d by an outside physicia n in 2023. 2 thoracic lead SCS implant that is position al. please eval for potentia l paddle lead candidat e 2024 025 [facility], [address], [address], [place], [address], 12/22/2024 04:11:34 Procedures injectio n, sacroili ac joint (PROC) - 52297-35 b/l Dx SIJ injectio n 2024 025 [email or web address] Roberto Vanessa DO, [address], [address], [place], [address], 12/18/2024 11:09:21 Surgeries None recorded . Imaging None recorded . Medication Orders hydrocod one 5 mg-aceta minophen 325 mg tablet 2024 025 [facility] [id number], [address] [place] [address], [address], 12/14/2024 12:37:30 Patient TargetsNo targets recorded. Patient Instructions Encounter Date Encounter Id Patient Instructions Last Modified By Organization Details Last Modified Time 12/14/2024 [id number] I have discussed in great detail our [...] the benefits of the procedure and interventions. [email or web address] Not available 12/04/2024 21:04:39 Reason for Referral Neurological Surgeon Referra l for Postprocedural state finding patient had SCS implanted by an outside physician in 2023.2 thoracic lead SCS implant that is positional. please eval for potential paddle lead candidate Referring Physician: Roberto Vanessa, Pain Management, Encounter Date: 12/14/2024 Problems Name Problem SNOMED Code Status Onset Date Resolution Date Notes Provider Name and Address Organization Details Recorded Time Severe obesity 5393900217811 4 Active [address], [address] [place] [address] 1, [place] & [place] 5 16:10:48 Chronic pain syndrome 757467876 Active 2024 ROB[address]O VANESSA [address], [address] [place] [address] 1, [place] & [place] 5 16:10:49 Postprocedu ral state finding 771772453 Active 2024 ROBERTO VANESSA [address], [address] [place] [address] 1, [place] & [place] 5 16:10:50 Spinal stenosis of lumbar region 35170073 Active 2024 [address]O VAN[address]SA [address], [address] [place] [address] 1, [place] & [place] 5 16:10:50 Post-cristo ctomy syndrome 50333075 Active 2024 ROB[address]O VANESSA [address], [address] [place] [address] 1, [place] & [place] 5 16:10:57 Intercostal neuralgia 526000968 Active 2024 ROBERTO VANESSA [address], [address] [place] [address] 1, [place] & [place] 5 16:11:34 Pain of intercostal space 065106373 Active 2024 ROBERTO VANESSA [address], [address] [place] [address] 1, [place] & [place] 5 16:11:35 Lumbar spondylosis 224073603 Active 2024 ROBERTO VANESSA [address], [address] [place] [address] 1, [place] & [place] 12:00:35 Inflammatio n of sacroiliac joint 29636592 Active [address], [place], [address] , [place] - [facility] - [place] & [place] 14:13:36 Problem Notes None recorded. Procedures Surgical History Date Name Laterality Status Provider Name and Address Organization Details Recorded Time 12/25/19 18 completed Nelly Brown [place] - [facility] & [place] 09/07/2024 11:28:15 10/25/19 18 Date of Last Colonoscopy completed Nelly Brown [place] & [place] 09/07/2024 11:28:15 06/21/19 18 EGD completed [place]elly [place] & [place] 09/07/2024 11:28:30 06/21/19 18 Colonoscopy completed [place]elly [place] & [place] 09/07/2024 11:28:30 06/21/19 12 Neurosurgery completed Nelly [place] & [place] 09/07/2024 11:28:30 06/21/19 06 Abdominal Surgery completed Nelly Brown [place] & [place] 09/07/2024 11:28:30 06/21/19 06 Gastrointestinal Surgery completed Nelly Brown [place] & [place] 09/07/2024 11:28:30 06/21/18 95 Breast Surgery completed [place]elly Brown [place] & [place] 09/07/2024 11:28:30 06/21/18 94 Other completed [place]elly Brown [place] & [place] 09/07/2024 11:28:30 06/21/18 94 Global Project Manager Surgery completed Nelly Brown [place] & [place] 09/07/2024 11:28:30 06/21/18 73 Other completed Nelly Brown [place] & [place] 09/07/2024 11:28:30 06/21/18 61 Appendectomy completed Nelly Brown [place] & [place] 09/07/2024 11:28:30 Imaging Results None recorded. Procedure Notes None recorded. Medical Equipment None Reported. Allergies Allergen ID Allergen Name Allergen Category Reaction Reaction Severity Criticality Documentation Date Start Date Code Code System Note Provider Name and Address Organization Details Recorded Time 239043 tramadol medicatio n hallucina tions severe Not available 09/07/2024 56092 RxNorm NAOMI Rai [facility] & [place] 11:28:11 718528 Zanaflex medicatio n anaphylax is confusion moderate moderate Not available 11/06/2024 75802 6 [facility]Norm [facility] [place] 15:28:00 Medications Name Sig Start Date Stop [...] Address Organization Details Last Updated DateTime 5 87032.1 4 g 96.8 [degF] 97 % 97 % 71 /min 134/89 mm[Hg] Nelly VALERIO [facility] & [place] 10:57:48 Social History Question Answer Notes LastModified by Organizat ion Details LastModified Time Tobacco Smoking Status Never Smoker NAOMI Rai [facility] & [place] 09/07/2024 11:28:24 Do You Have An Advance Directive? No [email or web address] Information not available 09/07/2024 Are You Blind Or Do You Have Difficulty Seeing? No [email or web address] Information not available 09/07/2024 What Was The Date Of Your Most Recent Tobacco Screening? 09/06/2024 [email or web address] Information not available 09/07/2024 Are You Passively Exposed To Smoke? No [email or web address] Information not available 09/07/2024 Sex: Unknown Functional Status Question Answer Note LastModified by Organizat ion Details LastModified Time Do you use any illicit or recreational drugs? No [email or web address] Information not available 09/07/2024 What is your level of alcohol consumption? None [email or web address] Information not available 09/07/2024 Do you or have you ever used smokeless tobacco? Never used smokeless tobacco [email or web address] Information not available 09/07/2024 What is your exercise level? Occasional Information not available 09/07/2024 Mental Status Question Answer Note LastModified by Organization D etails LastModified Time Do you feel stressed (tense, restless, nervous, or anxious, or unable to sleep at night)? [id number] [email or web address] Information not available 09/07/2024 Family History Relationship [...] available 09/06/2024 12:15:43 Medical History Condition Response Spine Problems Y Obstructive Sleep Apnea Y Obesity Y Vision or Eye Problems Y Arthritis Y Acid Reflux (GERD) Y High Cholesterol Y Headaches Y GI Problems Y Diabetes Y Back Problems Y Reflux/GERD Y Hypertension Y Gynecological History Statement/Question Response Abnormal Pap N 12/24/2017 Date of Last Colonoscopy 10/24/2017 Date of LMP 08/23/1994 Sexually Active? N Menses Monthly N Age at Menarche 14 Obstetrics History GPAL:G 0 P 0 0 0 0 Past Encounters Encounter ID Performer Location Encounter Start Date Encounter Closed Date Diagnosis/Indication Diagnosis SNOMED-CT Code Diagnosis ICD10 Code Diagnosis Note [id number] ROBERTO VANESSA DO [facility]- [address] [place] [address] 12/14/2024 10:41:44 12/14/2024 11:39:51 Postprocedural state finding 195039274 Z96.89 Chronic pain syndrome 37 4216252 G89.4 Severe obesity 995255995 1 9104 E66.813 E66.01 Z68.41 Post-carri ectomy syndrome 14995703 M96.1 Pain of in tercostal space 029665482 R07.82 Intercostal neuralgia 24 0380408 G58.8 Inflammati on of sacroiliac joint 66005357 M46.1 Health Concerns Section Related Observation LastModified by Organization Detai ls LastModified Time None Recorded Concern Status LastModified by Organization Details LastModified Time None Recorded Payers Encounter Date Sequence Insurance Name Policy Number Policy Thomas Covered Member ID Thomas Member ID Guarantor Name 12/14/2024 1 [place] Dora Saxena [id number] 2 Dora Saxena Notes Date Note Type Note Provider Name and Address Organization Details Recorded Time 5 text/html Patient presented with chronic mid and low back pain for several years. She has an Van SCS which is providing adequate relief of her reffered symptoms in the b/l LE. This was placed in [facility] pain and spine by Ilan Partida. 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 She takes Lyrica Rx by her PCP Referral: Michelle [facility]- S/p C4-C6 ACDF in 2011 and s/p L5-S1 transforaminal lumbar interbody fusion in 2017- S/[facility]- DM, Raynaud's, Obesity [...] NoneAntiplatelets: NoneWork Status: unemployed ROBERTO VANESSA, DO [address] [place] [address], [place], [address], [facility] & [place] 12/14/2024 16:21:58 OBGyn Episode No OBEpisode recorded.
--- OUTSIDE RECORDS SUMMARY | 2025-01-01 21:34 | XMS_ITS | Data Portability ---
Author Organization [place] - [facility], [facility] Address [address] [place] [address] Assessment Encounter Date Assessment Date Assessment LastModified by Organization Details LastModified Time 12/15/2016 12/15/2016 Status post TLIF L5-S1. Not available 12/18/2016 13:41:54 03/02/2017 03/02/2017 Status post L5-S1 fusion [email or web address] Not available 03/03/2017 13:44:43 Plan of Treatment [...] STATUS POST L5-S1 LUMBAR FUSION 11/27/162016 017 [facility], [address] [facility] [place], [address], 7 09:29:43 XR, lumbosacral spine, 2 or 3 view 2016 017 [email or web address] In-House Results, For Internal Use Only, Do Not Delete/merge, [id number] 7 15:37:09 XR, lumbosacral spine, 2 or 3 view 2016 017 [email or web address] In-House Results, For Internal Use Only, Do Not Delete/merge, [id number] 7 07:14:34 Medication Orders Tylenol-Cod eine #3 300 mg-30 mg tablet 2016 017 [email or web address] #[id number], [address], [place], [place], [id number], 7 14:41:48 Neurontin 300 mg capsule 2016 017 [email or web address] [id number], [address], [place], [place], [id number], 7 16:06:41 [place] 7.5 mg-325 mg tablet 2016 017 [email or web address] [id number], [address], [place], [place], [id number], 7 14:08:00 Patient TargetsNo targets recorded. Patient Instructions Encounter Date Encounter Id Patient Instructions Last Modified By Organization Details Last Modified Time 12/15/2016 [id number] 1. Sutures out. 2. Neurontin 300 mg., #120 as prescribed above. 4. Middle[place] 7.5 mg., #120 as prescribed above. Encounter transcribed by: Rita Car Not available 12/18/2016 13:42:39 03/02/2017 [id number] note to return t o work/school - [...] : 1950 Age: 66 Sex: F Acct: [id number] Loc: 321 P Exam Date: 2016 Status : ADM Jean Unit No: [id number] ORDERI NG PHYSIC ANOOP: JOSEF RICKETTS EXAM# TYPE/E XAM [id number] MRIP/M RI LUMBAR SPINE W/O CONTR [...] : 1950 Age: 66 Sex: F Acct: [id number] Loc: 321 P Exam Date: 2016 Status : ADM Jean Unit No: [id number] ORDERI NG PHYSIC ANOOP: JOSEF RICKETTS EXAM# TYPE/E XAM [id number] MRIP/M RI LUMBAR SPINE W/O CONTR RELEVA NT HISTOR Y: LUMBAR STENOS IS Workst ation: [id number] REPORT SIGNED IN OTHER VENDOR SYSTEM 2016 Dictat ed By: CLIFFORD JEFFERY II, M.D. CC: JULIEN SANCHEZ IN H; JOSEF RICKETTS Techno logist : HERBERT OVERAL L RT (R) Transc ribed Date/T wilma: 2016 (0817) Transc riptio nist: RADDAD Printe d Date/T wilma: 2016 (0759) PAGE 2 Signed Report [facility] (Imaging) [address] [place], [address], 12/01/2016 11:16:20 03/03/20 17 03/03/2017 MRI, lumba r spine , w/wo contr ast MR L SPINE W/WO CONT [email or web address] [place] [address] [address] [place], [address], 03/26/2017 16:36:42 Result Notes Documentation Provider Name and Address Organization Details Recorded Time Mri, Lumbar Spine, W/wo Contrast : MR L SPINE W/WO CONT Jennifer jacobs [facility] 03/26/2017 16:36:42 Procedures Surgical History Date Name Laterality Status Provider Name and Address Organization Details Recorded Time Spine Cervical [facility] 12/15/2016 16:11:48 Knee Arthroscopic Surgery completed [facility] 12/15/2016 16:11:48 Lumpectomy of Breast completed [facility] 12/15/2016 16:11:48 Tubal Ligation completed [facility] 12/15/2016 16:11:48 Appendectomy (Appendix) completed [facility] 12/15/2016 16:11:48 Hysterectomy completed [facility] 12/15/2016 16:11:48 Plastic/Cosmetic Surgery completed Dillon Creasmjeffrey [facility] 12/15/2016 16:11:48 Blepheroplasty completed Dillon Creasman [facility] 12/15/2016 16:11:48 Colonoscopy completed Dillon Creasman [facility] 12/15/2016 16:11:48 Spine Lumbar Fusion completed Kaya Mathews [facility] 03/02/2017 14:14:55 Imaging Results None recorded. Procedure Notes None recorded. Medical Equipment None Reported. Allergies Allergen ID Allergen Name Allergen Category Reaction Reaction Severity Criticality Documentation Date Start Date Code Code System Note Provider Name and Address Organization Details Recorded Time 413722 Non-stero idal anti-infl ammatory agent (product) medicatio n Not available Not available Not available 12/15/2016 99233 005 SNOMED Dillon Creasman [facility] 7 16:12:22 841849 Ultram medicatio n Not available Not available Not available 12/15/2016 05504 6 RxNorm Dillon Creasman [facility] 7 16:12:29 504914 Zanaflex medicatio n Not available Not available Not available 12/15/2016 76422 6 RxNorm Dillon Creasman [facility] 7 16:12:34 910044 Product containin g glucocort icoid (product) medicatio n other severe Not available 03/02/2017 03599 6006 SNOMED Oral stero id dose pack [facility] 7 14:10:22 351254 Toradol medicatio n irregular heart rate severe Not available 03/02/2017 64353 RxNorm IV [facility] 7 14:13:54 Medications [...] Not Available Not Available Not Avai lable [place] 7.5 mg-325 mg tablet Take 1 tablet [...] Updated DateTime 12/15/2016 162.56 cm 33.1 kg/m2 04643.33 g Dillon Candelaria [facility] 12/15/2016 16:11:23 Date Recorded Body height Body mass index (BMI) Body weight Provider Name and Address Organization Details Last Updated DateTime 03/02/2017 162.56 cm 31.8 kg/m2 87132.59 g Kaya Mathews [facility] 03/02/2017 14:07:13 [...] History Condition Response High Blood Pressure Y Thyroid problems N Bleeding Disorders N Depression N Liver problems N Prostate Problems N Heart Stent N Headaches/Migraines N Peripheral Neuropathy N Anxiety Disorder N Chronic infection N Arthritis Y Blood Clot / DVT N HIV / AIDS N Stroke/TIA N Reflux / GERD N High Cholesterol N Dialysis N Sleep apnea: CPAP or BIPAP N Stents (other than cardiac) N Parkinson's Disease N Metal Implants N Lung problems N Anemia N Kidney problems N Ulcers N Implanted device N Diabetes Type I or II N Seizures N Memory Loss N Blood clot in lung N Osteoporosis N Gynecological HistoryNo gynecological history recorded. Obstetrics History GPAL:G 0 P 0 0 0 0 Past Encounters Encounter ID Performer Location Encounter Start Date Encounter Closed Date Diagnosis/Indication Diagnosis SNOMED-CT Code Diagnosis ICD10 Code Diagnosis Note [id number] Josef Ricketts DO [facility] [address] [place] [address] 12/15/2016 15:13:59 12/15/2016 19:08:53 Displacement of lumbar intervertebral disc without myelopathy 37994189 M51.26 [id number] Josef Ricketts DO [facility] [address] [place] [address] 03/02/2017 13:35:56 03/02/2017 14:50:10 Follow-up orthopedic assessment 094586437 Z47.89 Spinal alireza nosis of lumbar region 31132540 M48.06 Health Concerns Section Related Observation LastModified by Organization Detai ls LastModified Time None Recorded Concern Status LastModified by Organization Details LastModified Time None Recorded Advance Directives Directive None Recorded Payers Insurance Date Sequence Insurance Name Policy Number Policy Thomas Covered Member ID Thomas Member ID Guarantor Name 03/10/2017 1 [employer] [id number] Dora Saxena [id number] Dora Saxena Notes Date Note Type Note Provider Name and Address Organization Details Recorded Time 12/15/2016 text/html Dora Saxena returns today for follow up status post PLIF and sacral dome osteotomy. The patient reports back pain and left leg pain/weakness. The patient rates their pain at 9 out of 10 on the pain scale today. The patient currently takes Robaxin, Neurontin and [place] 7.5 mg., which are effective in controlling [...]
--- OUTSIDE RECORDS SUMMARY | 2025-01-01 21:34 | XMS_ITS | Encounter Summary ---
Author Organization Healthcare Address [address] [id number] Care Team Providers Care Leg Breaker Name Role Phone Jennifer Antonio Michell CHAMBERS Primary Care Provider [phone] Encounter Details Date Type Department Care Team (Late st Contact Info) Description 12/13/2023 Ophth Exam [facility] [address] [place] [address] Ryan Nogueira MD [address] [place], [place] [id number] Social History Tobacco Use Types Packs/Day Years [...] documented as of this encounter Care Teams Leg Breaker Relationship Specialty Start Date End Date Jennifer Antonio APRN PCP - General 12/13/23 documented as of this encounter
--- NOTE | 2025-01-01 21:35 | PC.NURSE ---
Report given to Dario RN Pt awake alert and oriented Skin pink warm and dry Resp full and easy Rash noted to head. Speech clear and appropriate
--- NOTE | 2025-01-01 22:02 | CT_ITS ---
PROCEDURE INFORMATION: Exam: CT Head Without Contrast Exam date and time: 01/01/2025 10:12 PM Age: 74 years old Clinical indication: Altered mental status/memory loss; Additional info: AMS, hallucinations/delusions TECHNIQUE: Imaging protocol: Computed tomography of the head without contrast. Radiation optimization: All CT scans at this facility use at least one of these dose optimization techniques: automated exposure control; mA and/or kV adjustment per patient size (includes targeted exams where dose is matched to clinical indication); or iterative reconstruction. COMPARISON: No relevant prior studies available. FINDINGS: Brain: No hemorrhage. Unremarkable white matter. No mass effect. Cerebral ventricles: No ventriculomegaly. Paranasal sinuses: Chronically opacified left maxillary sinus with poorly defined hyperdensity Mastoid air cells: Visualized mastoid air cells are well aerated. Bones: Unremarkable. No acute fracture. Soft tissues: Unremarkable. IMPRESSION: 1. No acute intracranial abnormality. 2. Chronic left maxillary sinus opacification with poorly defined hyperdensity. Correlate for chronic allergic fungal sinusitis symptoms.
--- NOTE | 2025-01-01 22:07 | ED_ITS ---
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 phentermine which explain these findings. Ethanol negative. CT head does not demonstrate acute intracranial abnormality or abnormalities of the skull itself. See radiology read for final interpretation. When I reevaluated the patient and explained all of her findings to her, she is reassured. She understands that she does not have any skull fractures or mesh in her skull. She has good insight into this stating I do not know why I thought I did, I am more worried about why I had those thoughts now. But I am glad that I do not actually have any of that . Patient has good insight into her condition now that she is actually being transparent about the root cause. She would like to receive psychiatric help and I agree with Dr. Jacobs that she does not meet criteria for involuntary psychiatric hospitalization, but patient states [facility] due to her schedule tomorrow and lack of transportation. She states she has no social support and no one would be available to pick her up from anywhere. She would prefer a referral for outpatient psychiatric help. She was referred to [facility] with behavioral health for this purpose. I do not have high suspicion for shingles however patient has had suspicion for this in the past so I believe it is reasonable to continue the antivirals that were started recently. She was instructed to continue any other home medications as prescribed as well as to follow-up closely with behavioral health and her primary care doctor. I also discussed with her strict return precautions for the ER including but not limited to any hallucinations or other new abnormalities. She indicated understanding and the patient was discharged in stable condition Critical Care <Polly Jacobs, DO - Last Filed: 01/01/25 23:40> Critical Care Time Critical Care Time: No
--- NOTE | 2025-01-01 22:31 | ECG_ITS ---
APPROVED REPORT Exam: Resting ECG HR:73 bpm ECG Measurements Heart Rate 73 AXES KS 349 P 256 QRSd 92 QRS 6 QT 395 T -1 QTc 421 Conclusion Artifact because of pain pump No STEMI Electronically signed by : DEMETRICE SOOD, 01/02/2025 00:10:24
[2025-01-01 22:44] LABS: VBG HCO3 22.5 mmol/L (23-30); VBG PCO2 41.4 mmol/L (35-51); VBG PH 7.35 mmol/L (7.31-7.41); VBG PO2 54.8 mmol/L (28-40)
[2025-01-01 22:46] LABS: Lactate Venous 3.1 mmol/L (0.4-2.0)
[2025-01-01 22:58] LABS: Albumin Level 4.5 g/dl (3.5-5.0); Chloride 103 mmol/L (98-107); Potassium 3.7 mmoL/L (3.5-5.1); Sodium 141 mmol/L (136-145)
[2025-01-01 23:00] LABS: Alanine Aminotransferase 38 U/L (12-78); Albumin/Globulin Ratio 1.2 (1.1-1.8); Alkaline Phosphatase 84 U/L (38-126); Anion Gap 15.7 mEq/L (5-15); Aspartate Amino Transferase 54 U/L (14-36); Bilirubin,Total 0.7 mg/dl (0.2-1.3); Blood Urea Nitrogen 18 mg/dl (7-17); Carbon Dioxide 26 mmol/L (22.0-30.0); Creatinine Clearance Estimated 76 mL/min (50-200); Creatinine,Serum 0.90 mg/dl (0.52-1.04); Estimated Glomerular Filt Rate 62 ml/min (>60); GFR (African American) 74 ML/MIN (>60); Globulin 3.8 g/dL (1.3-3.2); Total Protein,Serum 8.3 g/dl (6.3-8.2)
[2025-01-01 23:01] VITALS: BP 123/65; PULSE 70; O2SAT 94
[2025-01-01 23:01] LABS: Calcium 9.7 mg/dl (8.4-10.2); Glucose 153 mg/dl (74-100); Hematocrit 41.4 % (37.0-47.0); Hemoglobin 13.9 g/dL (12.2-16.2); Immature Granulocytes % 0.4 %; Mean Corpuscular HGB Conc 33.6 g/dL (31.8-35.4); Mean Corpuscular Hemoglobin 31.2 pg (27.0-31.2); Mean Corpuscular Volume 93.0 fl (81-99); Nucleated Red Blood Cells % 0 %; Platelet Count 342 K/mm3 (142-424); Red Blood Count 4.45 M/mm3 (4.20-5.40); Red Cell Distribution Width-SD 47.4 fL; White Blood Count 8.4 K/mm3 (4.8-10.8)
[2025-01-01 23:02] LABS: Acetaminophen < 10 ug/ml (10-30); Salicylate < 1.0 mg/dL (2.0-20.0)
[2025-01-01 23:06] LABS: C-Reactive Protein 4.6 mg/L (0-4)
[2025-01-01 23:20] LABS: T4 (Thyroxine) 8.8 ug/dl (5.53-11.0)
[2025-01-01 23:29] VITALS: BP 125/75; PULSE 72; O2SAT 95
[2025-01-01 23:34] LABS: Thyroid Stimulating Hormone 0.77 uIU/mL (0.465-4.68)
[2025-01-02 00:01] VITALS: BP 124/62; PULSE 70; O2SAT 99
[2025-01-02 00:21] LABS: Microscopic, Urine URINE MICROSCOPIC (MICROSCOPIC)
[2025-01-02 00:24] LABS: Color,Urine YELLOW (Yellow); Glucose,Urine (UA) Negative (Negative); Ketones,Urine Negative (Negative); Leukocyte Esterase,Urine TRACE (Negative); PH,Urine 6.0 (5.0-8.5); Protein,Urine Negative (Negative); Specific Gravity, Urine >= 1.030 (1.005-1.030); Urobilinogen,Urine 1.0 EU/dl (0.2)
[2025-01-02 00:30] VITALS: BP 133/76; PULSE 69; O2SAT 97
[2025-01-02 00:37] LABS: Amphetamine/Metha Screen,Urine Positive ng/ml (<1000); Barbiturates Screen,Urine Negative ng/ml (<200); Bilirubin,Urine 1+ (Negative)
[2025-01-02 00:38] LABS: Benzodiazepines Screen,Urine Negative ng/ml (<200)
[2025-01-02 00:40] LABS: Methadone Screen,Urine Negative ng/ml (<300); Opiate Screen,Urine Positive ng/ml (<300)
[2025-01-02 00:41] LABS: Phencyclidine Screen,Urine Negative ng/ml (<25)
[2025-01-02 00:43] LABS: Bacteria,Urine 1+ /lpf; Mucus,Urine 4+ /lpf
[2025-01-02 00:56] VITALS: BP 133/76; PULSE 88; RESP 20; TEMP 36.7; O2SAT 97
[2025-01-02 01:28] LABS: Hepatitis C Ab Qual. W/ RFX NEGATIVE (Negative)
[2025-01-02 02:45] LABS: Reflex Lactic Add Lactic Reflex
== END 2025-01-02 01:02 | disposition home or self-care (01) ==
PROVIDERS: Emergency Medicine; Emergency Provider Emergency Medicine; PCP Physician Assistant
DX: F42.4 Excoriation (skin-picking) disorder (principal); R45.0 Nervousness; F41.9 Anxiety disorder, unspecified; F33.9 Major depressive disorder, recurrent, unspecified
CPT/HCPCS: 70450; 80053; 80307; 80320; 80329; 81001; 82803; 84436; 84443; 85025; 85651; 86140; 86803; 87389; 93005; 99284

== ENCOUNTER 2025-05-09 15:13 | Outpatient (CLI) | payer MEDICARE, SELFPAY ==
--- OUTSIDE RECORDS SUMMARY | 2025-03-15 00:56 | XMS_ITS | Continuity of Care Document ---
Author Organization [facility] Phone Care Team Providers Care Internet Webmaster Name Role Phone Duran HARRIS Primary Attending Duran HARRIS Admitting Duran HARRIS Unavailable Duran HARRIS Primary Care ALLERGIES AND ADVERSE REACTIONS ALLERGIES AND ADVERSE REACTIONS Code System Allergy Substance Adverse Reaction Date Reaction (Severity) Comment Status Reported By Updated By Tramadol HCl (Free Text Allergy) Adverse reaction to substance Not Specified active [id number] on May 09, 2023 5:28:47 PM UTC lidocaine (PF) (Free Text Allergy) Adverse reaction to substance Not Specified active [id number] on May 09, 2023 5:28:47 PM UTC 09574 RXNorm Zanaflex Adverse reaction to substance Not Specified active [id number] on May 09, 2023 5:28:47 PM UTC RESULTS Patient: JEZ Israel Date of : September [birth year] LABORATORY RESULTS Information is not available LABORATORY NARRATIVE RESULTS Information is not available RADIOLOGY RESULTS ORDER 200: MRI SPINE CERVICL WO (LOINC: 86947-3) ORDER DATE: March 13, 2025 5:19:00 PM UTC PERFORMING LAB: [address] [id number] Final Result Date: March 13, 2025 6:13:[address] [place] [address] Name: JIM STORY Exam Date: 03/13/2025 : 1950 Age 74 years Gender: F Physician: Duran HARRIS Facility: [facility] Facility HSV: Outpatient Exam: MRI SPINE CERVICL WO Cervical MRI without contrast HISTORY: Cirrhosis TECHNIQUE: Various axial coronal and sagittal scans without contrast performed. COMPARISON: None available FINDINGS: Previous fusions at C4-5 C5-[address] and artifact noted. Normal signal of vertebral bodies and spinal cord. C1-2: Mild DJD around the dens C2-3: Mild annular disc bulge and mild degenerative disc disease facet disease. C3-4: Moderate/severe degenerative disc disease posterior osteophyte moderate disc bulge complex causing moderate spinal canal stenosis with effacement of subarachnoid space anteriorly and also posteriorly by facet hypertrophy and DJD. There is bilateral significant neural foraminal narrowing also noted. C4-5: postsurgical changes and right-sided osteophyte present causing mild lateral recess narrowing and there is mild degenerative facet arthritis causing mild bilateral neural foraminal narrowing. C5-6: postsurgical change and artifact. A small to moderate broad-based osteophyte disc complex causing mild spinal canal stenosis. C6-7: there is a zrjp-us-hpivopwi annular disc bulge posterior osteophyte disc complex causing mild spinal canal stenosis and bilateral neural foraminal stenosis more on the left than right. IMPRESSION: 1. Moderate spinal canal stenosis C3-4 due to posterior osteophyte disc bulge complex and facet disease. 2. Mild spinal canal stenosis C5-6 and C6-7. 3. Right-sided lateral recess stenosis C4-5. Electronically signed by: Audi Jaquez MD 03/13/2025 02:33 PM EDT RP Dictated By: UADI JAQUEZ Transcribed By: Transcribed On: 03/13/2025 2:13 PM Electronically signed by: AUDI JAQUEZ 03/13/2025 Thank you for referring JIM STORY to [facility]. Legally authenticated by LEONID HUNTLEY MD 2025-03-13 14:13:00 PATHOLOGY NARRATIVE RESULTS Information is not available MICROBIOLOGY RESULTS No Micro Labs/Results Exist for Patient BLOOD ADMIN RESULTS Information is not available MEDICATIONS HOME MEDICATIONS Status RXNORM NDC Medication Dose Route Frequency Dates Comments Reported By Updated By Drug Treatment Unknown DISCHARGE MEDICATIONS Status RXNORM NDC Medication Dose Route Frequency Dates Dis pense Data Comments Physician Updated By No Discharge Medication Info rmation Available INPATIENT MEDICATIONS Status RXNORM NDC Medication Dose Route Frequency Rat e Quantity Dates Indication Dispense Data Comments Physician Updated By No Inpatient Medication Info rmation Available SOCIAL HISTORY SOCIAL HISTORY - Smoking Status SNOMED-CT Social History Element Description Effective Dates Offered Cessation Comment Updated By [id number] Smoking Status Unknown If Ever Smoked SOCIAL HISTORY - Gender Sex: Female SOCIAL HISTORY - Status : status i nformation is not available Intention in Next Year: intention information is not available SOCIAL HISTORY - Assessments Code System Description Status Date Value of Assessment Updated By Comment Assessment Information is no t available SOCIAL HISTORY - [place] Affiliation [place] information is not av ailable SOCIAL HISTORY - Legal Sex Legal Sex information is not available SOCIAL HISTORY - Sexual Behavior Sexual Orientation Gender Identity SNOMED-CT Description SNO MED -CT Description Activity Level No of Partners Partner Type UpdatedBy Information is not available SOCIAL HISTORY - Occupation Occupation information is no t available HEALTH CONCERNS Problems Concern Status Health Concern problem infor mation not available. Smoking Status Status Years Used Consumed packs p er day Health Concern smoking histo ry information not available. Family History Concern Status Health Concern family histor y information not available. MEDICAL EQUIPMENT MEDICAL EQUIPMENT Device Status Quantity Dates Procedure Comments Updated By No implanted devices [id number] on September 18, 2024 4:06:36 PM [facility] ENCOUNTERS ENCOUNTER INFORMATION Reason for Visit Not Specified Admission March 13, 2025 4:36:00 PM [place] C [address] [address] Discharge March 13, 2025 4:36:00 PM UT C DISCHARGED TO HOME OR SELF CARE ENCOUNTER DIAGNOSES Notes information is not carter ilable. Code System Diagnosis Onset Date Diagnosis information is not available. 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, CERVICAL REGION [id number] on March 15, 2025 5:56:24 AM [facility] M48.02 ICD10 SPINAL STENOSIS, CERVICAL REGION [id number] on March 15, 2025 5:56:24 AM [facility] CARE TEAM Care Internet Webmaster Role D STEVEN Primary Attending Duran HARRIS Admitting Duran HARRIS Referring Duran HARRIS Primary Care CARE TEAM CARE fast food shift lead Role on Team Location Telecom Status Start Date End Fco e Updated By STEVEN JONES PCP normal March 08, 2025 3:51:34 PM UTC March 13, 2025 4:36:00 PM UTC [id number] on March 08, 2025 3:51:34 PM UTC STONE D REBECCA JONES Referring normal March 08, 2025 3:51:34 PM UTC March 13, 2025 4:36:00 PM UTC [id number] on March 08, 2025 3:51:34 PM UTC STONE Duran JONES Attending normal March 08, 2025 3:51:34 PM UTC March 13, 2025 4:36:00 PM UTC [id number] on March 08, 2025 3:51:34 PM UTC STONE Duran JONES Admitting normal March 08, 2025 3:51:34 PM UTC March 13, 2025 4:36:00 PM UTC [email or web address] on March 08, 2025 3:51:34 PM UTC
--- OUTSIDE RECORDS SUMMARY | 2025-05-10 12:17 | XMS_ITS | Encounter Summary ---
[facility] Address [address] [place] [address] Care Team Providers Care Sports Bookmaker Name Role Phone Marisela, Jenniferjosse Galarza APRN Primary Care Provider [phone] Reason for Visit * Reason Comments Med Refill Encounter Details Date Type Department Care Team (Late st Contact Info) Description 11/08/2024 Refill [facility] [address] [facility] [address] [place] [address] Kandis Bear PA-C [address] [facility] [address] [place] [address] Social History Tobacco Use Types Packs/Day Years Used Date Smoking Tobacco: Never Smokeless Tobacco: Never Alcohol Use Standard Drinks/Week Comments Not Currently 0 (1 standard drink = 0.6 oz pur e alcohol) AUDIT-C Answer Date Recorded Q1: How often do you have a drink containing alcohol? Never 08/01/2022 Q2: How many drinks containi ng alcohol do you have on a typical day when you are drinking? Patient does not drink Q3: How often do you have si x or more drinks on one occasion? Never 08/01/2022 PHQ-2 Answer Date Recorded Retired PHQ-9: Brief Depression Severity Measure Score 1 08/04/2022 Abuse Screen Answer Date Recorded Feels Unsafe at Home or Work/School no 12/08/2023 Feels Threatened by Someone no 11/19 Does Anyone Try to Keep You From Having Contact with Others or Doing Things Outside Your Home? no 12/08/2023 Physical Signs of Abuse Present no 12/08/2023 Housing Stability Answer Date Recorded Current Living Arrangements home 07/22 Potentially Unsafe Housing Conditions Not on amaya e 08/01/2022 Disabilities Answer Date Recorded Difficulty Concentrating, Remembering or Making Decisions no 08/01/2022 Difficulty Managing Errands Independently no 08/01/2022 Education Answer Date Recorded Help with school or training? Not on file Preferred Language Armenian 08/01/2022 PHQ-2 Answer Date Recorded Patient Health Questionnaire-2 Score 0 06/22/2024 Comments No Sex and Gender Information Value Date Recorded Sex Assigned at Not on file Legal Sex Female 1:48 PM EDT Gender Identity Not on file Sexual Orientation Not on file documented as of this encounter Plan of Treatment Not on file documented as of this encounter Visit Diagnoses Not on filedocumented in this encounter Care Teams Sports Bookmaker Relationship Specialty Start Date End Date Jennifer Antonio APRN [address] [place], [place] [id number] PCP - General Family Medicine 11/25/23 documented as of this encounter
--- OUTSIDE RECORDS SUMMARY | 2025-05-10 12:18 | XMS_ITS | Referral Summary ---
Author Organization [employer] ([place], [place], [place], [place], [place]) Address [address] [place] [address] Care Team Providers Care Tile Classifier Name Role Phone Unavailable Primary Care Provider Unavailabl e Social History Tobacco Use Types Packs/Day Years Used Date Smoking Tobacco: Never Assessed Comments Unknown Sex and Gender Information Value Date Recorded Sex Assigned at Not on file Legal Sex Female 3:29 PM CDT Gender Identity Not on file Sexual Orientation Not on file Plan of Treatment Upcoming Encounters Date Type Department Care Team (Late st Contact Info) Description 05/10/2025 3:00 PM EST Office Visit [facility] Neurology - [address] [address] Michelle Monet, PAAustin [address] [place] [address] Julien Balderrama Jr., MD [address] [place] [address] [address] [place] [address] Insurance MEDICARE PART A B
--- OUTSIDE RECORDS SUMMARY | 2025-05-10 12:18 | XMS_ITS | Clinical Summary ---
Author Organization [employer] ([place], [place], [place], [place], [place]) Address [address] [place] [address] Care Team Providers Care Community Service Director Name Role Phone Unavailable Primary Care Provider [...] Description 05/10/2025 3:00 PM EST Office Visit [facility] Neurology - [address] [address] Michelle Monet, PAJyotiC [address] [place] [address] Julien Balderrama Jr., MD [address] [place] [address] [address] [place] [id number] Health Maintenance Due Date Last Done Comments CT Colonography 1950 Colonoscopy 1950 Colorectal Cancer Screening 1950 DXA SCAN 1950 FOBT/FIT 1950 Fit-DNA (Cologuard) 1950 Sigmoidoscopy 1950 Depression Screening (12+) 1964 Tobacco Cessation Counseling and Screening (12+) 1964 Hepatitis C Screening 1970 DTAP/TDAP/TD VACCINES (1 - Tdap) 09/22/1971 Breast Cancer Screening 1992 Pneumococcal 50+ years (1 of 1 - PCV) 2002 Shingles Vaccine (Zoster) (1 of 2) 2002 Falls Risk Screening 06/21/2024 COVID-19 VACCINE (3 - 2024- season) 02/19/202508/2023, 09/05/2020 Influenza Vaccine (#1) 2025 04/20/2024 Medicare IPPE (Welcome to Medicare) [id number] 02/19/2025 Respiratory Syncytial Virus (RSV) Adult or (1 - 1-dose 75+ series) 09/22/2027 Insurance MEDICARE PART A B
--- OUTSIDE RECORDS SUMMARY | 2025-05-10 12:18 | XMS_ITS | Clinical Summary ---
Author Organization Healthcare Address [address] [place] [address] Care Team Providers Care Inspector Packer Name Role Phone MariselaJennifer raines Michell CHAMBERS Primary Care Provider [phone] Allergies Active Allergy Reactions Criticality Noted Date [...] 1 (one) time per week. Wednesdays Active [place]-3 Fatty Acids (OMEGA-3 CF PO) Take 4 [...] 2002 UKY-Zoster Vaccines (1 of 2) 2002 PUJ-OZCVK-15 Vaccine ( season) 2025 09/22/2023, 12/30/2020, 12/24/2020, Additional history exists UKY-Influenza [...] Adults <6.0% Children and Adolescents <7.5% Source: [place] [employer]. Standards of medical care in diabetes,2017. Diabetes Care.2017:40 (suppl 1):S1-S135. HbA1c assay performed by an ion-exchange chromatography method that is certified traceable to the DCCT. us Anamika Aguilera MD LAB BLOOD ORDERABLES Final Res ult Performing Organization Address City/[facility]/ZIP Co de Phone Number [facility]ALTH[facility]ARE [facility] [address] [place] [phone] * Hepatitis C Antibody - ED (12/13/2023 11:56 PM EDT) Hepatitis C Antibody Negative Negative 12/14/2023 12:59 AM EDT [facility] Blood Venous blood specimen / Unknown Venipuncture / Unknown 12/13/2023 11:56 PM EDT 12/14/2023 12:17 AM EDT us Kalyan Ceron MD LAB BLOOD ORDERABLES Final Res ult [facility] [address] [place] [address] from Last 3 Months or Most Recently Relevant to Health Maintenance Insurance MEDICARE Advance Directives * Full Code (Latest Code Status on File) Date Activated Date Inactivated Comments 12/13/2023 11:33 PM 12/15/2023 2:09 PM Question Answer Comments Patient has decision-making capacity? Yes Care Teams Inspector Packer Relationship Specialty Start Date End Date Jennifer Antonio APRN PCP - General 12/13/23
--- OUTSIDE RECORDS SUMMARY | 2025-05-10 12:19 | XMS_ITS | Data Portability ---
Author Organization [place] [facility] Med and [facility]o, [facility] Address [address] [place] [address] Assessment Encounter Date Assessment Date Assessment LastModified by Organization Details LastModified Time 12/15/2016 12/15/2016 Status post TLIF L5-S1. Not available 12/18/2016 13:41:54 03/02/2017 03/02/2017 Status post L5-S1 fusion [email or web address] Not available 03/03/2017 13:44:43 Plan of Treatment [...] FUSION 11/27/162016 017 [facility], [address] [facility], [address], 7 09:29:43 XR, lumbosacral spine, 2 or 3 view 2016 017 [email or web address] In-House Results, For Internal Use Only, Do Not Delete/merge, [id number] 7 15:37:09 XR, lumbosacral spine, 2 or 3 view 2016 017 [email or web address] In-House Results, For Internal Use Only, Do Not Delete/merge, [id number] 7 07:14:34 Medication Orders Tylenol-Cod eine #3 300 mg-30 mg tablet 2016 017 [email or web address]94[facility], [address], [place], [place], [id number], 7 14:41:48 Neurontin 300 mg capsule 2016 017 [email or web address] [facility], [address], [place], [place], [id number], 7 16:06:41 Scotland 7.5 mg-325 mg tablet 2016 017 [email or web address] [facility], [address], [place], [place], [id number], 7 14:08:00 Patient TargetsNo targets recorded. Patient Instructions Encounter Date Encounter Id Patient Instructions Last Modified By Organization Details Last Modified Time 12/15/2016 [id number] 1. Sutures out. 2. Neurontin 300 mg., #120 as prescribed above. 4. Scotland 7.5 mg., #120 as prescribed above. Encounter transcribed by: Rita Car Not available 12/18/2016 13:42:39 03/02/2017 [id number] note to return t o work/school - [...] contr ast Name: LUCIAN SAXENA Phys: JOSEF MENDEZ : 1950 Age: 66 Sex: F Acct: [id number] Loc: 321 P Exam Date: 2016 Status : ADM Jean Unit No: [id number] ORDERI NG PHYSIC ANOOP: JOSEF MENDEZ EXAM# TYPE/E XAM [id number] MRIP/M RI LUMBAR SPINE W/O CONTR [...] (LUNA NUED) Name: LUCIAN SAXENA Phys: JOSEF MENDEZ : 1950 Age: 66 Sex: F Acct: [id number] Loc: 321 P Exam Date: 2016 Status : ADM Jean Unit No: [id number] ORDERI NG PHYSIC ANOOP: JOSEF MENDEZ EXAM# TYPE/E XAM [id number] MRIP/M RI LUMBAR SPINE W/O CONTR RELEVA NT HISTOR Y: LUMBAR STENOS IS Workst ation: [id number] REPORT SIGNED IN OTHER VENDOR SYSTEM 2016 Dictat ed By: CLIFFORD JEFFERY II, M.D. CC: JULIEN SANCHEZ IN H; JOSEF MENDEZ Techno logist : HERBERT OVERAL L RT (R) Transc ribed Date/T wilma: 2016 (0817) Transc riptio nist: RADDAD Printe d Date/T wilma: 2016 (0759) PAGE 2 Signed Report [facility] (Imaging) [address] [place], [address], 12/01/2016 11:16:20 03/03/20 17 03/03/2017 MRI, lumba r spine , w/wo contr ast MR L SPINE W/WO CONT [email or web address] [place] [address] [address] [place], [address], 03/26/2017 16:36:42 Result Notes Documentation Provider Name and Address Organization Details Recorded Time Mri, Lumbar Spine, W/wo Contrast : MR L SPINE W/WO CONT Jennifer jacobs [facility] 03/26/2017 16:36:42 Procedures Surgical History Date Name Laterality Status Provider Name and Address Organization Details Recorded Time Spine Cervical Fusion [facility] 12/15/2016 16:11:48 [...] Ortho 12/15/2016 16:11:48 Plastic/Cosmetic Surgery completed Dillon Creyogesh [facility] 12/15/2016 16:11:48 Blepheroplasty completed Dillon Creasmjeffrey [facility] 12/15/2016 16:11:48 Colonoscopy completed Dillon Creasmjeffrey [facility] 12/15/2016 16:11:48 Spine Lumbar Fusion completed Kaya Mathews [facility] 03/02/2017 14:14:55 Imaging Results None recorded. Procedure Notes None recorded. Medical Equipment None Reported. Allergies Allergen ID Allergen Name Allergen Category Reaction Reaction Severity Criticality Documentation Date Start Date Code Code System Note Provider Name and Address Organization Details Recorded Time 024254 Non-stero idal anti-infl ammatory agent (substanc e) medicatio n Not available Not available Not available 12/15/2016 14240 5008 SNOMED Dillon Creasman [facility] 7 16:12:22 691279 Ultram medicatio n Not available Not available Not available 12/15/2016 87709 6 RxNorm Dillon Creasman [facility] 7 16:12:29 061591 Zanaflex medicatio n Not available Not available Not available 12/15/2016 79138 6 RxNorm [facility] [place] 7 16:12:34 634921 Product containin g glucocort icoid (product) medicatio n other severe Not available 03/02/2017 36398 6006 SNOMED Oral stero id dose pack Kaya jacobs [facility] 7 14:10:22 262552 Toradol medicatio n irregular heart rate severe Not available 03/02/2017 88531 RxNorm IV Kaya jacobs [facility] 7 [...] Not Available Not Available Not Avai lable [place] 7.5 mg-325 mg tablet Take 1 tablet [...] Updated DateTime 12/15/2016 162.56 cm 33.1 kg/m2 41814.33 g Dillon Candelaria [facility] 12/15/2016 16:11:23 Date Recorded Body height Body mass index (BMI) Body weight Provider Name and Address Organization Details Last Updated DateTime 03/02/2017 162.56 cm 31.8 kg/m2 05342.59 g Kaya Mathews [facility] 03/02/2017 14:07:13 [...] Time Are you able to care for yourself independently? Yes Information not available 12/15/2016 What is your occupation? nurse [...] Y Sleep apnea: CPAP or BIPAP N Stents (other than cardiac) N Parkinson's Disease N Thyroid problems N Bleeding Disorders N Metal Implants N Depression N Lung problems N Liver problems N Anemia N Prostate Problems N Kidney problems N Heart Stent N [...] Diagnosis SNOMED-CT Code Diagnosis ICD10 Code Diagnosis IMO Codes Diagnosis Note [id number] Josef Mendez DO [facility] [address] [place] [address] 12/15/2016 15:13:59 12/15/2016 19:08:53 Displacement of lumbar intervertebral disc without myelopathy 28082520 M51.26 [id number] Josef Mendez DO [facility] [address] [place] [address] 03/02/2017 13:35:56 03/02/2017 14:50:10 Follow-up orthopedic assessment [id number] Z47.89 Spinal alireza nosis of lumbar region 32957414 M48.06 Health Concerns Section Related Observation LastModified by Organization Detai ls LastModified Time None Recorded Concern Status LastModified by Organization Details LastModified Time None Recorded Advance Directives Directive None Recorded Payers Insurance Date Sequence Insurance Name Policy Number Policy Thomas Covered Member ID Thomas Member ID Guarantor Name 03/10/2017 1 [place] [id number] Dora Saxena [id number] Dora Saxena Notes Date Note Type Note Provider Name and Address Organization Details Recorded Time 12/15/2016 text/html Dora Saxena returns today for follow up status post PLIF and sacral dome osteotomy. The patient reports back pain and left leg pain/weakness. The patient rates their pain at 9 out of 10 on the pain scale today. The patient currently takes Robaxin, Neurontin and [place] 7.5 mg., which are effective in controlling [...] and Ortho 12/21/2016 10:17:23 03/02/2017 text/html Dora was last seen on 12/15/16 and is here for [...] last visit. IM[facility] 03/04/2017 15:56:57 OBGyn Episode No OBEpisode recorded.
--- OUTSIDE RECORDS SUMMARY | 2025-05-10 12:19 | XMS_ITS | Encounter Summary ---
[facility] Address [address] [place] [address] Care Team Providers Care Dealership General Manager Name Role Phone Marisela, Jenniferjosse Galarza APRN Primary Care Provider [phone] Reason for Visit * Reason Comments Med Refill Encounter Details Date Type Department Care Team (Late st Contact Info) Description 04/14/2023 Refill [facility] [address] [facility] [address] [place] [address] Kandis Bear PA-C [address] [facility] [address] [place] [address] Neuropathic pain Social History Tobacco Use Types Packs/Day Years [...] Feels Unsafe at Home or Work/School no 12/05/2022 Feels Threatened by Someone no 11/19 Does Anyone Try to Keep You From Having Contact with Others or Doing Things Outside Your Home? no 12/05/2022 Physical Signs of Abuse Present no 12/05/2022 Housing Stability Answer Date Recorded Current Living Arrangements home 07/22 Potentially Unsafe Housing Conditions Not on amaya e 08/01/2022 Disabilities Answer Date Recorded Difficulty Concentrating, Remembering or Making Decisions no 08/01/2022 Difficulty Managing Errands Independently no 08/01/2022 Education Answer Date Recorded Help with school or training? Not on file Preferred Language Polish 08/01/2022 PHQ-2 Answer Date Recorded Retired PHQ-9: Brief Depression Severity Measure Score 1 08/04/2022 Comments No Sex and Gender Information Value Date Recorded Sex Assigned at Not on file Legal Sex Female 1:48 PM EDT Gender Identity Not on file Sexual Orientation Not on file documented as of this encounter Plan of Treatment Not on file documented as of this encounter Visit Diagnoses Diagnosis Neuropathic pain documented in this encounter Additional Health Concerns Assessment Noted Time PHQ-2 Depression Total Score: 1 08/04/19 23 6:07 PM EST documented as of this encounter Care Teams Dealership General Manager Relationship Specialty Start Date End Date Jennifer Antonio APRN [address] [place], [place] [id number] PCP - General Family Medicine 11/25/23 documented as of this encounter
--- OUTSIDE RECORDS SUMMARY | 2025-05-10 12:19 | XMS_ITS | Data Portability ---
Author Organization [facility] [employer] [place] - [place] Address [address] [place] [address] Assessment No assessment recorded. Plan of Treatment Reminders Order Date Submit Date Provider Last Modified By Organization Details Last Modified Time Details Appointments None recorded. Lab urinalysis, dipstick 2024 025 [facility], [address] [place], [address], 5 16:24:30 unlisted lab - toxassure flex 19, [id number] 2024 025 [place] [facility], [facility] [place], [address], 5 01:06:38 culture, urine 2024 025 [facility], [facility] [place], [address], 5 01:06:39 HbA1c (hemoglobin A1c), blood 2024 025 [email or web address] [facility], [address] [place], [address], 5 17:57:29 Referral neurologica l surgeon referral 2024 025 [email or web address] [facility], [address], [place], [address], 09:00:19 pain management referral [address] [facility], [address], [place], [address], 15:58:26 Procedures home sleep testing (PROC) 2024 025 [email or web address], [address], [place], [address], 11:39:08 Surgeries None recorded. Imaging MRI, cervical spine, w/ contrast 2024 025 [facility], [address] , [place], [address], 11:11:43 XR, thoracic spine, 3 view 2024 025 [facility] -New Scheduling Process, [address], [place], [address], 10:50:35 Medication Orders Diflucan 150 mg tablet 2024 025 [facility] [id number], [address] [place], [address], 17:38:47 terconazole 0.8 % vaginal cream 2024 025 [facility] [id number], [address] [place], [address], 5 05:01:16 ketorolac 60 mg/2 mL intramuscul ar solution 2024 025 Not available 17:28:48 levofloxaci n 500 mg tablet 2024 025 [facility] [id number], [address] [place], [address], 05:01:34 Pyridium 200 mg tablet 2024 025 [facility] [id number], [address] [place], [address], 05:01:04 ondansetron 8 mg disintegrat ing tablet 2024 025 [facility] [id number], [address] [place], [address], 05:02:27 phentermine 37.5 mg tablet 2024 025 [facility] [id number], [address] [place], [address], 16:24:28 phentermine 37.5 mg tablet 2024 025 [facility] [id number], [address] [place], [address], 15:38:51 Patient TargetsNo targets recorded. Patient Instructions Encounter Date Encounter Id Patient Instructions Last Modified By Organization Details Last Modified Time 08/24/2024 [id number] healthy upper back: exercises [email or web address] Not available 08/24/2024 15:40:37 12/14/2024 [id number] learning about high blood sugar [email or web address] Not available 12/14/2024 17:55:49 snoring: care instructions Not available 12/14/2024 15:22:25 body mass index: care instructions [email or web address] Not available 12/14/2024 15:22:46 learning about healthy weight [email or web address] Not available 12/14/2024 15:22:46 02/12/2025 [id number] painful urinatio n (dysuria): care instructions [email or web address] Not available 02/12/2025 16:24:28 bladder training : care instructions [email or web address] Not available 02/12/2025 16:24:28 kegel exercises: care instructions Not available 02/12/2025 16:24:28 Stress Incontinence: Care Instructions [email or web address] Not available 02/12/2025 16:24:28 Urge Incontinence: Care Instructions Not available 02/12/2025 16:24:28 body mass index: care instructions [email or web address] Not available 02/12/2025 16:24:28 learning about healthy weight [email or web address] Not available 02/12/2025 16:24:28 03/05/2025 [id number] cervical spinal stenosis: care instructions [email or web address] Not available 03/05/2025 17:40:55 bacterial vaginosis: care instructions [email or web address] Not available 03/05/2025 17:38:38 Stress Incontinence: Care Instructions Not available 03/05/2025 17:47:35 Reason for Referral Pain Management Referral for Thoracic back pain Referring Physician: [facility], Encounter Date: 08/24/2024 Neurological Surgeon Referra l for Spinal stenosis in cervical region Referring Physician: Michelle Monet [facility], Encounter Date: 03/05/2025 Results Created Date Observation Date Name Description Value Unit Range Abnormal Flag Note LastModifiedBy Organization Detail LastModifiedTime 12/15/1912/14/2024 HbA1c (hemo globi n A1c), blood HbA1c 6.0 % Not Available [facility] [address] [place] [address], [place], [address], 12/14/2024 17:55:00 02/13/2002/15/2025 TOXAS SURE FLEX 19, UR summary report FINAL ===== ===== ===== ===== ===== ===== ===== ===== ===== ===== ===== ===== ===== === Opiat e Class , MS, Ur RFX ToxAs sure Flex 19, Ur ===== ===== ===== ===== ===== ===== ===== ===== ===== ===== ===== ===== ===== === Test Resul t Flag Units Drug Prese nt [place] codon e 1897 ng/mg creat [place] morph one 144 ng/mg creat Dihyd rocod eine 158 ng/mg creat Norhy droco done 1022 ng/mg creat Sourc es of hydro codon e inclu de sched uled presc ripti on medic ation s. [place] morph one, dihyd rocod eine and norhy droco done are expec iron metab olite s of hydro codon e. [place] morph one and dihyd rocod eine are also avail able as sched uled presc ripti on medic ation s. Prega balin PRESE NT ===== ===== ===== ===== ===== ===== ===== ===== ===== ===== ===== ===== ===== === Test Resul t Flag Units Ref Range Creat inine 235 mg/dL >=20 ===== ===== ===== ===== ===== ===== ===== ===== ===== ===== ===== ===== ===== === Decla red Medic ation s: Medic ation list was not provi ded. ===== ===== ===== ===== ===== ===== ===== ===== ===== ===== ===== ===== ===== === For clini cindy consu ltati on, pleas e call [phone]. ===== ===== ===== ===== ===== ===== ===== ===== ===== ===== ===== ===== ===== === Not Available [facility] ([facility]) [address] [place], [address], 02/15/2025 01:06:38 02/13/2002/15/2025 TOXAS SURE FLEX 19, UR pdf . Not Available [facility] ([facility]) [address] [place], [address], 02/15/2025 01:06:38 02/13/20 25 02/15/2025 TOXAS SURE FLEX 19, UR creatinine 235 mg/dL >=20 REFER ENCE RANGE : Ref Range >=20 Not Available [facility] ([facility]) [address] [place], [address], 02/15/2025 01:06:38 02/13/20 25 02/15/2025 TOXAS SURE FLEX 19, UR amphetamines ia Negati ve NG/mL cutoff :300 Not Available [facility] ([facility]) [address] [place], [address], 02/15/2025 01:06:38 02/13/20 25 02/15/2025 TOXAS SURE FLEX 19, UR benzodiazepi mohamud Negati ve Not Available [facility] ([facility]) [address] [place], [address], 02/15/2025 01:06:38 02/13/20 25 02/15/2025 TOXAS SURE FLEX 19, UR diazepam Not Detect ed NG/mg _crea t Not Available [facility] ([facility]) [address] [place], [address], 02/15/2025 01:06:38 02/13/20 25 02/15/2025 TOXAS SURE FLEX 19, UR desmethyldia zepam Not Detect ed NG/mg _crea t Not Available [facility] ([facility]) [address] [place], [address], 02/15/2025 01:06:38 0802/15/2025 TOXAS SURE FLEX 19, UR oxazepam Not Detect ed NG/mg _crea t Not Available [facility] ([facility]) [address] [place], [address], 02/15/2025 01:06:38 02/13/20 25 02/15/2025 TOXAS SURE FLEX 19, UR temazepam Not Detect ed NG/mg _crea t Expec iron metab olism of benzo diaze pine class drugs : Paren t Drug Detec iron Metab olite s ----- ----- - ----- ----- ----- ----- Diaze vladimir: Desme thyld iazep am, Temaz epam, Oxaze vladimir Chlor diaze poxid e: Desme thyld iazep am, Oxaze vladimir Clora zepat e: Desme thyld iazep am, Oxaze vladimir Halaz epam: Desme thyld iazep am, Oxaze vladimir Temaz epam: Oxaze vladimir Oxaze vladimir: None Not Available [facility] ([facility]) [address] [place], [address], 02/15/2025 01:06:38 02/13/20 25 02/15/2025 TOXAS SURE FLEX 19, UR alprazolam Not Detect ed NG/mg _crea t Not Available [facility] ([facility]) [address] [place], [address], 02/15/2025 01:06:38 02/13/20 25 02/15/2025 TOXAS SURE FLEX 19, UR alpha-hydrox yalprazolam Not Detect ed NG/mg _crea t Not Available [facility] ([facility]) [address] [place], [address], 02/15/2025 01:06:38 02/13/20 25 02/15/2025 TOXAS SURE FLEX 19, UR desalkylflur azepam Not Detect ed NG/mg _crea t Not Available [facility] ([facility]) [address] [place], [address], 02/15/2025 01:06:38 02/13/2002/15/2025 TOXAS SURE FLEX 19, UR lorazepam Not Detect ed NG/mg _crea t Not Available [facility] ([facility]) [address] [place], [address], 02/15/2025 01:06:38 02/13/20 25 02/15/2025 TOXAS SURE FLEX 19, UR alpha-hydrox ytriazolam Not Detect ed NG/mg _crea t Not Available [facility] ([facility]) [address] [place], [address], 02/15/2025 01:06:38 02/13/20 25 02/15/2025 TOXAS SURE FLEX 19, UR clonazepam Not Detect ed NG/mg _crea t Not Available [facility] ([facility]) [address] [place], [address], 02/15/2025 01:06:38 02/13/20 25 02/15/2025 TOXAS SURE FLEX 19, UR 7-aminoclona zepam Not Detect ed NG/mg _crea t Not Available [facility] ([facility]) [address] [place], [address], 02/15/2025 01:06:38 02/13/20 25 02/15/2025 TOXAS SURE FLEX 19, UR midazolam Not Detect ed NG/mg _crea t Not Available [facility] ([facility]) [address] [place], [address], 02/15/2025 01:06:38 02/13/20 25 02/15/2025 TOXAS SURE FLEX 19, UR alpha-hydrox ymidazolam Not Detect ed NG/mg _crea t Not Available [facility] ([facility]) [address] [place], [address], 02/15/2025 01:06:38 02/13/20 25 02/15/2025 TOXAS SURE FLEX 19, UR flunitrazepa m Not Detect ed NG/mg _crea t Not Available [facility] ([facility]) [address] [place], [address], 02/15/2025 01:06:38 02/13/20 25 02/15/2025 TOXAS SURE FLEX 19, UR desmethylflu nitrazepam Not Detect ed NG/mg _crea t Not Available [facility] ([facility]) [address] [place], [address], 02/15/2025 01:06:38 02/13/20 25 02/15/2025 TOXAS SURE FLEX 19, UR cocaine metabolite ia Negati ve NG/mL cutoff :150 Not Available [facility] ([facility]) [address] [place], [address], 02/15/2025 01:06:38 02/13/20 25 02/15/2025 TOXAS SURE FLEX 19, UR ethanol biomarkers ia Negati ve NG/mL cutoff :500 Not Available [facility] ([facility]) [address] [place], [address], 02/15/2025 01:06:38 02/13/20 25 02/15/2025 TOXAS SURE FLEX 19, UR cannabinoids ia Negati ve NG/mL cutoff :20 Not Available [facility] ([facility]) [address] [place], [address], 02/15/2025 01:06:38 02/13/20 25 02/15/2025 TOXAS SURE FLEX 19, UR 6-acetylmorp manjit ia Negati ve NG/mL cutoff :10 Not Available [facility] ([facility]) [address] [place] [address], [address], 02/15/2025 01:06:38 02/13/20 25 02/15/2025 TOXAS SURE FLEX 19, UR opiate class ia COMMEN T NG/mL cutoff :100 Furth er testi ng indic ated Not Available [facility] ([facility]) [address] [place], [address], 02/15/2025 01:06:38 02/13/20 25 02/15/2025 TOXAS SURE FLEX 19, UR oxycodone class ia Negati ve NG/mL cutoff :100 Not Available [facility] ([facility]) [address] [place], [address], 02/15/2025 01:06:38 02/13/2002/15/2025 TOXAS SURE FLEX 19, UR methadone ia Negati ve NG/mL cutoff :100 Not Available [facility] ([facility]) [address] [place], [address], 02/15/2025 01:06:38 02/13/20 25 02/15/2025 TOXAS SURE FLEX 19, UR methadone mtb ia Negati ve NG/mL cutoff :100 Not Available [facility] ([facility]) [address] [place] [address], [address], 02/15/2025 01:06:38 02/13/20 25 02/15/2025 TOXAS SURE FLEX 19, UR buprenorphin e ia Negati ve NG/mL cutoff :5.0 Not Available [facility] ([facility]) [address] [place], [address], 02/15/2025 01:06:38 02/13/20 25 02/15/2025 TOXAS SURE FLEX 19, UR fentanyl ia Negati ve NG/mL cutoff :2.0 Not Available [facility] ([facility]) [address] [place] [address], [address], 02/15/2025 01:06:38 02/13/20 25 02/15/2025 TOXAS SURE FLEX 19, UR tapentadol ia Negati ve NG/mL cutoff :200 Not Available [facility] ([facility]) [address] [place], [address], 02/15/2025 01:06:38 02/13/20 25 02/15/2025 TOXAS SURE FLEX 19, UR propoxyphene ia Negati ve NG/mL cutoff :300 Not Available [facility] ([facility]) [address] [place], [address], 02/15/2025 01:06:38 02/13/20 25 02/15/2025 TOXAS SURE FLEX 19, UR tramadol ia Negati ve NG/mL cutoff :200 Not Available [facility] ([facility]) [address] [place], [address], 02/15/2025 01:06:38 02/13/20 25 02/15/2025 TOXAS SURE FLEX 19, UR methylphenid ate ia Negati ve NG/mL cutoff :100 Not Available [facility] ([facility]) [address] [place], [address], 02/15/2025 01:06:38 02/13/20 25 02/15/2025 TOXAS SURE FLEX 19, UR barbiturates ia Negati ve NG/mL cutoff :200 Not Available [facility] ([facility]) [address] [place], [address], 02/15/2025 01:06:38 02/13/20 25 02/15/2025 TOXAS SURE FLEX 19, UR phencyclidin e ia Negati ve NG/mL cutoff :25 Not Available [facility] ([facility]) [address] [place], [address], 02/15/2025 01:06:38 02/13/20 25 02/15/2025 TOXAS SURE FLEX 19, UR gabapentin ia Negati ve ug/mL cutoff :1.0 Not Available [facility] ([facility]) [address] [place], [address], 02/15/2025 01:06:38 02/13/20 25 02/15/2025 TOXAS SURE FLEX 19, UR anticonvulsa nts +POSIT JAIRO+ Not Available [facility] ([facility]) [address] [place], [address], 02/15/2025 01:06:38 02/13/20 25 02/15/2025 TOXAS SURE FLEX 19, UR pregabalin PRESEN T Not Available [facility] ([facility]) [address] [place], [address], 02/15/2025 01:06:38 02/13/2002/15/2025 TOXAS SURE FLEX 19, UR carisoprodol ia Negati ve NG/mL cutoff :100 Not Available [facility] ([facility]) [address] [place], [address], 02/15/2025 01:06:38 02/13/20 25 02/15/2025 OPIAT E CLASS , MS, UR RFX opiate class +POSIT JAIRO+ Not Available [facility] ([facility]) [address] [place], [address], 02/15/2025 01:06:39 02/13/20 25 02/15/2025 OPIAT E CLASS , MS, UR RFX codeine Not Detect ed NG/mg _crea t Not Available [facility] ([facility]) [address] [place], [address], 02/15/2025 01:06:39 02/13/2002/15/2025 OPIAT E CLASS , MS, UR RFX morphine Not Detect ed NG/mg _crea t Not Available [facility] ([facility]) [address] [place], [address], 02/15/2025 01:06:39 02/13/20 25 02/15/2025 OPIAT E CLASS , MS, UR RFX normorphine Not Detect ed NG/mg _crea t Not Available [facility] ([facility]) [address] [place], [address], 02/15/2025 01:06:39 02/13/2002/15/2025 OPIAT E CLASS , MS, UR RFX norcodeine Not Detect ed NG/mg _crea t Not Available [facility] ([facility]) [address] [place], [address], 02/15/2025 01:06:39 02/13/20 25 02/15/2025 OPIAT E CLASS , MS, UR RFX hydrocodone 1897 NG/mg _crea t Not Available [facility] ([facility]) [address] [place], [address], 02/15/2025 01:06:39 02/13/2002/15/2025 OPIAT E CLASS , MS, UR RFX hydromorphon e 144 NG/mg _crea t Not Available [facility] ([facility]) [address] [place], [address], 02/15/2025 01:06:39 02/13/20 25 02/15/2025 OPIAT E CLASS , MS, UR RFX dihydrocodei ne 158 NG/mg _crea t Not Available [facility] ([facility]) [address] [place], [address], 02/15/2025 01:06:39 02/13/2002/15/2025 OPIAT E CLASS , MS, UR RFX norhydrocodo ne 1022 NG/mg _crea t Expec iron metab olism of opiat e class drugs : Paren t Drug Detec iron Metab olite s ----- ----- - ----- ----- ----- ----- Codei ne: Major : Morph ine, [place] deine Minor : [place] codon e, [place] morph one, Dihyd rocod eine, Norhy droco done, Normo rphin e Morph ine: Major : Normo rphin e Minor : [place] morph one [place] codon e: [place] morph one, Dihyd rocod eine, Norhy droco done [place] morph one: None Dihyd rocod eine: None Heroi n: 6-Jose tylmo rphin e (if inclu ded), Morph ine, Normo rphin e Codei ne, in small amoun ts in joann rison to morph ine, is often detec iron when heroi n is the sourc e drug. Not Available [facility] ([facility]) [address] [facility], [place], [address], 02/15/2025 01:06:39 02/13/2002/14/2025 URINE CULTU RE, ROUTI NE urine culture, routine Final report abnormal Not Available [facility] ([facility]) [address] [place], [address], 02/15/2025 01:06:39 02/13/2002/14/2025 URINE CULTU RE, ROUTI NE result 1 Escher ichia coli abnormal Great er than 100,0 00 colon y formi ng units per mL Cefaz stephanie with an CONNER <=16 predi cts susce ptibi lity to the oral agent s cefac sheryl, cefdi heidy, cefpo doxim e, cefpr ozil, cefur oxime , cepha lexin , and lorac arbef when used for thera py of uncom plica iron urina ry tract infec tions due to E. coli, Klebs iella pneum oniae , and Prote us mirab ilis. Not Available [facility] ([facility]) [address] [facility], [place], [address], 02/15/2025 01:06:39 02/13/2002/14/2025 URINE CULTU RE, ROUTI NE antimicrobia l susceptibili ty Commen t S = Susce ptibl e; I = Inter media te; R = Resis tant P = Posit jairo; N = Negat jairo MICS are expre ssed in micro grams per mL Antib iotic RSLT# 1 RSLT# 2 RSLT# 3 RSLT# 4 Amoxi cilli n/Cla vulan ic Acid S Ampic illin S Cefaz stephanie S Cefep wilma S Cefox itin S Cefpo doxim e S Ceftr iaxon e S Cipro floxa ricardo S Ertap enem S Genta micin S Levof loxac in S Merop enem S Nitro furan toin S Piper acill in/Ta zobac oseguera S Tetra cycli ne S Tobra mycin S Trime thopr im/Baldwin lfa S Not Available [facility] ([facility]) [address] [facility], [place], [address], 02/15/2025 01:06:39 02/13/2002/12/2025 urina lysis , dipst ick Leukocytes Small Not Available [address], [address], 02/12/2025 15:41:47 02/13/2002/12/2025 urina lysis , dipst ick Nitrite negati ve Not Available [facility] [address] [place] [address], [address], 02/12/2025 15:41:47 02/13/2002/12/2025 urina lysis , dipst ick Urobilinogen 1 Not Available [address], [address], 02/12/2025 15:41:47 02/13/2002/12/2025 urina lysis , dipst ick Protein 30 Not Available [address], [address], 02/12/2025 15:41:47 02/13/2002/12/2025 urina lysis , dipst ick pH 5.5 Not Available [address], [place], [address], 02/12/2025 15:41:47 02/13/2002/12/2025 urina lysis , dipst ick Blood Non-He molyze d: Trace Not Available [address], [place], [address], 02/12/2025 15:41:47 02/13/2002/12/2025 urina lysis , dipst ick Specific [place] 1.030 Not Available [address], [place], [address], 02/12/2025 15:41:47 02/13/2002/12/2025 urina lysis , dipst ick Ketone Negati ve Not Available [address], [address], 02/12/2025 15:41:47 02/13/2002/12/2025 urina lysis , dipst ick Bilirubin Small Not Available [address], [place], [address], 02/12/2025 15:41:47 02/13/2002/12/2025 urina lysis , dipst ick Glucose Negati ve Not Available [address], [place], [address], 02/12/2025 15:41:47 02/13/2002/12/2025 urina lysis , dipst ick Appearance Slight ly Cloudy Not Available [address], [address], 02/12/2025 15:41:47 02/13/2002/12/2025 urina lysis , dipst ick Color Dark Yellow Not Available [facility] [address], [place], [address], 02/12/2025 15:41:47 09/01/1908/29/2024 XR, thora cic spine , 3 view No observ ation record ed. [facility] (Med Record) [address], [place], [address], 09/01/2024 14:21:59 03/15/2003/13/2025 MRI, cervi cindy spine , w/ contr ast No observ ation record ed. [email or web address] [facility] (Radiology) [address] , [place], [address], 03/15/2025 13:22:47 Result Notes None recorded. Problems Name Problem SNOMED Code Status Onset Date Resolution Date Notes Provider Name and Address Organization Details Recorded Time Thoracic back pain 763384295 Active 2024 KAREN Tejada [address] [place] [address], [address], [facility] 15:40:12 Mild major depression, single episode 76372350 Active 2024 KAREN Tejada [address] [place] [address], [address] 8, [employer] 13:50:53 Snoring 95202386 Active 2024 KAREN Tejada [address] [place] [address], [address] 8, [place] [employer] 15:20:17 Hyperglycem ia 17565435 Active 2024 KAREN Tejada [address] [place] [address], [address] 8, [facility] 17:54:58 Acute low back pain 068488199 Completed 202405/10/2025 KAREN Tejada [address] [place] [address], [address] 8, [facility] 11:40:39 Mixed urinary incontinenc e 310220659 Active 2024 KAREN Tejada [address] [place] [address], [address] 8, [employer] [facility] 16:07:04 Acute urinary tract infection 599878726 Completed 202405/10/2025 KAREN eTjada [address] [place] [address], [address] 8, [facility] 11:40:22 Vulvovagini tis 53991573 Active 2024 KAREN Tejada [address] [place] [address], [address]78[address] 8, [facility] 17:36:37 Lichen sclerosus of vulva 569340945 Active 2024 KAREN Tejada [address] [place] [address], 520[address]077 8, [facility] 17:38:53 Spinal stenosis in cervical region 19231076 Active 2024 KAREN Tejada [address] [place] [address], 05[address]668 8, [employer] [facility] 17:40:13 Urinary incontinenc e 881999959 Active 2024 KAREN Tejada [address] [place] [address], 47[address]777 8, [facility] 17:43:31 Essential hypertensio n 99015670 Active 2024 KAREN Tejada [address] [place] [address], 45392[address]501 8, [facility] 11:40:51 Gastroesoph ageal reflux disease without esophagitis 037510844 Active 2024 KAREN Tejada [address] [place] [address], 696[address]312 8, [employer] [facility] 11:40:55 Problem Notes None recorded. Procedures Surgical History Date Name Laterality Status Provider Name and Address Organization Details Recorded Time 09/22/19 Most Recent Mammogram completed [employer] 08/24/2024 15:07:32 Appendectomy completed [employer] 08/24/2024 15:07:33 Back Surgery completed [employer] 08/24/2024 15:07:33 Breast Biopsy completed [employer] 08/24/2024 15:07:33 Colposcopy completed [employer] [facility] [employer] 08/24/2024 15:07:33 Hysterectomy completed [employer] 08/24/2024 15:07:33 Neurosurgery completed [employer] 08/24/2024 15:07:33 Tubal Ligation completed [employer] 08/24/2024 15:07:33 Dilation and Curettage completed [employer] 08/24/2024 15:07:33 Orthopedic Surgery completed [employer] 08/24/2024 15:07:33 Endometrial Biopsy completed [employer] 08/24/2024 15:07:33 Cosmetic Surgery completed [employer] 08/24/2024 15:07:33 Total Hysterectomy completed [employer] 08/24/2024 15:07:33 Imaging Results None recorded. Procedure Notes None recorded. Medical Equipment None Reported. Allergies Allergen ID Allergen Name Allergen Category Reaction Reaction Severity Criticality Documentation Date Start Date Code Code System Note Provider Name and Address Organization Details Recorded Time 57670 aspirin medicatio n other Not available Not available 08/24/2024 1191 [employer] 15:07:32 84413 Product containin g glucocort icoid (product) medicatio n Not available Not available Not available 08/24/2024 07080 6006 SNOMED Madelaine Vice null, [employer] 15:21:02 77517 Zanaflex medicatio n Not available Not available Not available 12/14/2024 48139 6 RxNorm Brooke jacobs, [employer] 14:57:42 32906 tramadol medicatio n Not available Not available Not available 12/14/2024 62648 RxNorm Brooke jacobs, [employer] [employer] 14:58:00 Medications Name Sig Start Date Stop Date Status Note LastModified by Organization Details LastModified Time semaglutide 0.5mg/0.5ml injectable Inject 0.25mL (0.25mg=2 5 units) subcutane ously once weekly for four (4) weeks. 08/24 completed Not Available Not Available Not Available Norvasc 10 mg tablet Take 1 tablet every day by oral route for 90 days. 2024 active Not Available Not Available Not Avai lable hydrocodone 5 mg-acetamin ophen 325 mg tablet TAKE 1 TABLET BY MOUTH EVERY 6 HOURS NEEDED FOR SEVERE PAIN 08/24 completed Not Available Not Available Not Available lisinopril 20 mg tablet Take 1 tablet every day by oral route. active Not Available Not Available No t Available terconazole 0.8 % vaginal cream Insert 1 applicato rful every day by vaginal route for 7 days. 03/19 completed Not Available Not Available Not Available Pyridium 200 mg tablet Take 1 tablet 3 times a day by oral route for 2 days. 02/21 completed Not Available Not Available Not Available Diflucan 150 mg tablet Take 1 tablet every day by oral route for 7 days. 2024 active Not Available Not Available Not Avai lable phentermine 37.5 mg tablet Take 1 tablet every day by oral route for 30 days. 2024 active Not Available Not Available Not Avai lable ondansetron 8 mg disintegrat ing tablet Place 1 tablet 3 times a day by transling ual route as needed for 10 days. 03/01 completed Not Available Not Available Not Available pantoprazol e 40 mg tablet,brando yed release Take 1 tablet every day by oral route for 90 days. 2024 active Not Available Not Available Not Avai lable levofloxaci n 500 mg tablet Take 1 tablet every 24 hours by oral route for 7 days. 02/26 completed Not Available Not Available Not Available ketorolac 60 mg/2 mL intramuscul ar solution Inject 2 mL by intramusc ular route. 03/05 completed Not Available Not Available Not Available duloxetine 60 mg capsule,del ayed release Take 2 capsules every day by oral route for 90 days. 2024 active Not Available Not Available Not Avai lable Sure Comfort Insulin Syringe 0.5 mL 31 gauge x /16 USE DIRECTED 08/24 completed Not Available Not [...] mass index (BMI) Body height Oxygen saturation Heart rate Body temperature Systolic And Diastolic Systolic And Diastolic Provider Name and Address Organization Details Last Updated DateTime 5 77082.2 9 g 37.5 kg/m2 162.56 cm 95 % 64 /min 97.8 [degF] 146/80 mm[Hg] 142/80 mm[Hg] [facility] [employer] 5 15:20:26 Date Recorded Body height Body mass index (BMI) Body weight Oxygen saturation Heart rate Body temperature Systolic And Diastolic Provider Name and Address Organization Details Last Updated DateTime 5 162.56 cm 37.8 kg/m2 64778.3 2 g 97 % 60 /min 98.3 [degF] 103/67 mm[Hg] Brooke Harris [employer] 5 15:02:02 Date Recorded Body height Body mass index (BMI) Body weight Oxygen saturation Heart rate Body temperature Systolic And Diastolic Provider Name and Address Organization Details Last Updated DateTime 162.56 cm 38.8 kg/m2 255516. 88 g 96 % 72 /min 97.9 [degF] 130/80 mm[Hg] [employer] 15:37:14 Date Recorded Body height Heart rate Oxygen saturation Body temperature Systolic And Diastolic Provider Name and Address Organization Details Last Updated DateTime 162.56 cm 72 /min 96 % 98.2 [degF] 118/60 mm[Hg] [employer] 17:28:07 Social History Question Answer Notes LastModified by Organizat ion Details LastModified Time Tobacco Smoking Status Never Smoker [employer] 08/24/2024 15:07:32 Do You Have An Advance [...] Information not available 08/24/2024 What Type Of Home Health Registered Nurse Do You Use? None Information not available [...] Do You Have A Medical Power Of Monogram Operator? No Information not available 08/24/2024 What Was The Date Of Your Most Recent Tobacco Screening? 03/05/2025 Information not available 03/05/2025 Do You Have Any Pets? No Information [...] not available 08/24/2024 Are you able to walk independently without assistance or assistive devices? YESWOREST Information not available 08/24/2024 Do you have difficulty doing errands alone? No Information not available 08/24/2024 Are you able to care for yourself independently? Yes Information not available 08/24/2024 Do you have difficulty dressing, bathing, grooming, or toileting? Yes Information not available 08/24/2024 What is your exercise level? Occasional Information not available 08/24/2024 Mental Status Question Answer Note LastModified by Organizat ion Details LastModified Time Do you feel stressed (tense, restless, nervous, or anxious, or unable to sleep at night)? [id number] Information not available 08/24/2024 Do you have [...] disease Not available 2024 15:22:44 Mother Malignant neoplasm of breast Not available 2024 15:22:51 Medical History Condition Response Coronary Artery Disease N Other Y Gout N Blood Diseases N Kidney Stones N Hyperthyroidism N Blood Transfusion N Breast Cancer N Emergency room visit since last appointm ent. N Lung Disease N COPD N Depression Y Hypothyroidism N Dermatologic Disorders N Defects or Inherited Disease N Developmental or Behavioral Disorders N Breast Problem N Difficulty Swallowing N Anesthesia Complications N History of STI N Anxiety Disorder Y Meniere's disease N Autoimmune disease N Muscle, Joint, or Bone Problems N Vision or Eye Problems N Arthritis N Infertility N Polyps N Mental Disorder N Congenital Anomalies N Acid Reflux (GERD) N Cancer N Stroke N Neurologic/Epilepsy N Endometriosis N Bladder or Kidney Problems N High Cholesterol Y Liver Disease N Organ Transplant N Psychiatric/Mental Health Condition N Dialysis N Headaches N Fibromyalgia N Schizophrenia N Kidney Disease N Allergies/Hayfever N Heart Problems N Ear or Hearing Problems N Hospitalizations N Learning Disorder N Artificial Joints N Thyroid Problems N GI Problems Y Acne N ADD/ADHD N Eating Disorder N Anemia N Constipation N Mental Illness N Diabetes N Ovarian Cancer N Bedwetting N Hepatitis/Liver Disease N Tuberculosis N Eczema N Abuse/Domestic Violence N Diverticulitis N Asthma N Trauma/Violence N Substance Abuse N Reflux/GERD N Depression/ depression N Hepatitis N Heart Disease N Pulmonary Embolism N Tourette Syndrome N Chronic Ear Infections N Pre-Eclampsia N Hypertension Y Chicken Pox N Autism Spectrum Disorder (ASD) N Osteoporosis N Thrombophilias N Gynecological History Statement/Question Response Menses Monthly N HPV Vaccine N Date of Last Pap Smear Current Control Method Hysterectom y Most Recent Mammogram 09/22/2019 Age at First [...] mcg/0.25mL dose 09/05/2020 completed Madelaine Vice null, [employer] 08/24/2024 15:07:42 COVID-19, mRNA, LNP-S, PF, 50 mcg/0.5 mL 09/22/2023 completed Madelaine Vice null, [employer] 08/24/2024 15:07:42 Influenza, high-dose, trivalent, PF 04/20/2024 completed Madelaine Vice null, [employer] 08/24/2024 15:07:42 Past Encounters Encounter ID Performer Location Encounter Start Date Encounter Closed Date Diagnosis/Indication Diagnosis SNOMED-CT Code Diagnosis ICD10 Code Diagnosis IMO Codes Diagnosis Note [id number] KAREN Tejada [address] [address] 08/24/2024 14:30:09 08/24/2024 15:49:28 Thoracic back pain 101541869 M54.6 Will obtain Xray to r/o compressio n fractureNe w pain management referral [id number] Michelle Monet [address] [address] 12/14/2024 14:43:36 12/14/2024 15:23:18 Snoring 59204159 R06.83 03610 Body mass index 30+ - obesity 038861231 Z68.37 90384450 Hyperglycemia 10590234 R 73.9 03599 [id number] Michelle MonetKAREN [address] [address] 02/12/2025 15:26:07 02/12/2025 16:21:14 Dysuria 05902228 R30.0 27300 Long-term current use of drug therapy 027708477 Z79.899 87731182 Acute low back pain 2788 52496 M54.50 3237360379 Mixed urin jose incontinence 663008357 N39.46 570898 Acute urin jose tract infection 635792796 N39.0 005811 Body mass index 30+ - obesity 967548502 Z68.38 364125 Abnormal urinalysis 1672 50279 R82.90 469059 [id number] Michelle Monet [address] [address] 03/05/2025 17:14:45 03/05/2025 17:43:37 Vulvovaginitis 92438914 N76.0 49110 Lichen scl erosus of vulva 089138898 N90.4 1543288637 Spinal justin nosis in cervical region 69824246 M48.02 88218 Urinary incontinence 165 655029 R32 04567323 Health Concerns Section Related Observation LastModified by Organization Detai ls LastModified Time None Recorded Concern Status LastModified by Organization Details LastModified Time None Recorded Advance Directives Directive N: Payers Insurance Date Sequence Insurance Name Policy Number Policy Thomas Covered Member ID Htomas Member ID Guarantor Name 04/07/2025 1 [place] Dora Saxena [id number] 2 Dora Saxena 04/07/2025 [place] [employer] [facility] Dora Saxena [id number] 2 Dora Saxena Notes Date Note Type Note Provider Name and Address Organization Details Recorded Time 08/24/2024 text/html ROS as noted in the HPI Failed lumbar surgery 2017.SCS January 2024. States [...] the past. SCS was put in by [facility]. She is currently unable [...] her for her pain. KAREN Tejada [address] [place], [address], [place] [employer] 08/24/2024 17:50:46 12/14/2024 text/html ROS as noted in the HPI Patient would like to have her HgA1c checked. States that her blood sugar has been higher at home.Would like to discuss options for weight loss.States that she is always tired. Brother notes that she snores.Blood pressure is well controlled. Denies headache, chest pain, vertigo, dyspnea. KAREN Tejada [address] [place], [address], [employer] 12/15/2024 15:53:08 02/12/2025 text/html ROS as noted in the HPI Patient has had dysuria X 4-5 days. States the urge to go was so bad that she couldnt leave the house. Has urinary incontinence anyway, but couldn't hold it at all. While rushing to the bathroom, she pulled a muscle in her back. Spinal cord stimulator helps a little, but it is still very painful.Would like refills on Adipex.Had shingles about 6 weeks ago, then had an abscessed tooth that had to be pulled. KAREN Tejdaa [address] [place], [address], [employer] 02/12/2025 17:26:00 03/05/2025 text/html Patient states that she has a yeast infection. Started a few days after starting Levaquin. Tried OTC Monistat. She states bathing helps. Swollen, red, itchy. Also has lichen sclerosus.Also complains of neck pain, radiating into both arms. History of cervical surgery. States both arms are numb, has pain radiating into her nipples. States her balance is off - falls backward. Would like a referral back to her neurosurgeon Julien Balderrama. States that she cannot lift her arms, is having trouble getting around. Mostly lays around in bed. Has a spinal cord stimulator. Unable to work because something happens every time she tries. She is dropping things. KAREN Tejada [address] [place], [address], [employer] 03/05/2025 17:49:19 OBGyn Episode Ob Episode Information Episode Created Date Number of Fetuses Patient Bloodtype Patient rh Status Prepregnancy Weight lbs Domestic Partner Domestic Partner Phone Father Name Technology Project Manager Status 11/10/19 25 1 OPEN Fetus Data First Name Last Name Admitted to NICU Weight (g) Sex Living Outcome Pediatric Complications Fetus ID Race Codes Race Delivery Type [id number] Sam Calculation Initial Sam Date Initial Exam [...] Weight in lbs Pre/Post Dialysis Refused Weight 220.879187862404 BP Diastolic BP Location Tested BP Systolic BP Type 67 L arm 103 sitting Fetus Heart Rate Present Fetus Movement Comments Flowsheet Date 02/12/2025 Verdugo Score Blood Edema Fundus Height Fundus Units Glucose Ketones Leukocytes Nitrite Labor Signs Protein Cervic Dilation Cervic Effacement Cervic Station Type Weight in lbs Pre/Post Dialysis Refused Weight 226.173914396009 BP Diastolic BP Location Tested BP Systolic BP Type 80 L arm 130 sitting Fetus Heart Rate Present Fetus Movement Comments Flowsheet Date 03/05/2025 Verdugo Score Blood Edema Fundus Height Fundus Units Glucose Ketones Leukocytes Nitrite Labor Signs Protein Cervic Dilation Cervic Effacement Cervic Station Type Weight in lbs Pre/Post Dialysis Refused 0.0 Not Performed BP Diastolic BP Location Tested BP Systolic BP Type 60 L arm 118 sitting Fetus Heart Rate Present Fetus Movement [...]
--- OUTSIDE RECORDS SUMMARY | 2025-05-10 12:19 | XMS_ITS | Encounter Summary ---
Author Organization Healthcare Address [address] [id number] Care Team Providers Care [employer] Architect Name Role Phone Jennifer Antonio Michell CHAMBERS Primary Care Provider [phone] Encounter Details Date Type Department Care Team (Late st Contact Info) Description 12/13/2023 Ophth Exam [facility] [address] [place] [address] Ryan Nogueira MD [address] [place], [place] [id number] Social History Tobacco Use Types Packs/Day Years [...] documented as of this encounter Care Teams [employer] Relationship Specialty Start Date End Date Jennifer Antonio APRN PCP - General 12/13/23 documented as of this encounter
--- OUTSIDE RECORDS SUMMARY | 2025-05-10 12:19 | XMS_ITS | Clinical Summary ---
[facility] Address [address] [place] [place] [address] Care Team Providers Care Supervisor Laboratory Name Role Phone Jennifer Antonio Michell CHAMBERS Primary Care Provider [phone] Allergies Active Allergy Reactions Criticality Noted Date Comments Corticosteroids Other (See Comments) High 12/20/2020 Ketorolac Tromethamine Arrhythmia High 03/24/2021 Nsaids GI Intolerance 09/20/2017 Tizanidine Hallucinations 03/21/2014 Tramadol Other (See Comments) ,Nausea Only,Nausea And Vomiting 03/21/2014 Medications sucralfate (CARAFATE) 1 g tabletIndications: Ulcer Take 1 tablet by mouth 4 (Four) Times a Day. 120 tablet 5 09/21/19 18 Active Additional Information Patient taking differently:1 g Oral4 Times Daily PRN, Reported on 06/22/2024 glucose blood (WILFREDO CONTOUR NEXT TEST) test strip Use once daily. 100 each 5 09/21/19 18 Active [id number] 3-Phytoster (ANIMI-3/VITAMIN D PO) Animi-3 With Vitamin D Active methocarbamol (ROBAXIN) 500 MG tabletIndications: Chronic bilateral low back pain, unspecified whether sciatica present Take 1 tablet by mouth 3 (Three) Times a Day. 90 tablet 3 10/03/19 22 Active Additional Information Patient taking differently:500 mg Oral3 Times Daily PRN, Reported on 06/22/2024 lidocaine (LIDODERM) 5 %Indications:Neuro pathic pain Place 1 patch on the skin as directed by provider As Needed for Mild Pain or Moderate Pain. Remove & Discard patch within 12 hours or as directed by MD 60 patch 2 06/04/20 22 Active DULoxetine (CYMBALTA) 60 MG capsule TAKE 1 CAPSULE BY MOUTH TWICE A DAY 180 capsule 3 10/21/19 24 Active pantoprazole (PROTONIX) 40 MG EC tabletIndications: Erosive esophagitis Take 1 tablet by mouth Daily. 90 tablet 3 12/29/19 24 Active atorvastatin (Lipitor) 20 MG tabletIndications: Mixed hyperlipidemia Take 1 tablet by mouth Daily. 90 tablet 1 04/20/20 24 Active lisinopril (PRINIVIL,ZESTRIL) 40 MG tabletIndications: Essential hypertension Take 1 tablet by mouth Daily. 90 tablet 1 04/20/20 24 Active pregabalin (LYRICA) 150 MG capsuleIndications :Neuropathic pain TAKE 1 CAPSULE BY MOUTH 2 TIMES A DAY 180 capsule 06/22/19 25 Active metoprolol succinate XL (Toprol XL) 25 MG 24 hr tabletIndications: Essential hypertension Take 1 tablet by mouth Daily. 90 tablet 1 06/22/19 25 Active ondansetron ODT (Zofran ODT) 4 MG disintegrating tabletIndications: Nausea Place 1 tablet on the tongue Every 8 (Eight) Hours As Needed for Nausea or Vomiting. 30 tablet 1 07/04/19 25 Active amLODIPine (NORVASC) 10 MG tabletIndications: Essential hypertension TAKE 1 TABLET BY MOUTH DAILY 90 tablet 1 08/03/19 25 Active Active Problems Problem Noted Date Diagnosed Date At risk for falls 11/09/2024 Chronic pain of both shoulders 04/20/2024 Assessment & Plan (04/24/2024 2:35 PM EST): Patient states She has had issues with chronic shoulder pain for years but has gotten worse since stimulator placement. Has gotten steroids injections in the past with added benefit. Patient continues to utilize 150 mg twice daily. Her to return back to [facility] as they are the ones controlling her pain and orthopedic issues at this time. Persistent depressive disorder 04/20/2024 Assessment & Plan (04/24/2024 2:36 PM EST): Sent verbalizes ongoing depression with her recent health issues despite use of duloxetine 60 mg twice daily both for her mood and chronic pain. Pursuance of other mood stabilizing medications at this time. Denies SI or HI. Encounter to establish care 11/25/2023 Pruritus 11/25/2023 Assessment & Plan (11/29/2023 5:19 PM EDT): Patient states this has been a long-term issue. The itching is constant but worse at night. She Has been evaluated by dermatologists. She states she was told it was psoriasis. Was given antibiotics, creams and steroids. States her issues have failed to respond to any of those treatments. Bilateral lower extremity lesions consistent with appearance of a fungal infection. Treat with topical anti fungal and oral fluconazole History of cervical cancer 11/25/2023 Amaurosis fugax of left eye 08/02/2022 Assessment & Plan (12/30/2023 4:45 PM EDT): On December 14 patient presented to [facility] emergency department with extreme eye pain and headache. Patient was also noted to have bilateral scalp lesions concerning for herpes zoster. Patient was evaluated by ophthalmology in the emergency department but there was low concern for active ocular involvement. She Was however noted to have increased ocular pressure for admitted for further evaluation and treatment. She was initially treated with empiric acyclovir. Headache improved after migraine cocktail of pro chlorpromazine, magnesium and lactated ringer bolus. 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 She is continue to be followed by ophthalmology as outpatient. Assessment & Plan (11/25/2023 3:25 PM EDT): Due to optic neuritis. MS ruled out. One year ago lost sight. Blurred vision, left eye 07/31/2022 GERD without esophagitis 07/31/2022 Assessment & Plan (11/29/2023 5:17 PM EDT): Patient reports longstanding pattern of reflux. Her symptoms are very well- controlled with daily pantoprazole 40 mg as well as Carafate 1 g 4 times daily as needed for rare flares. Obesity (BMI 30-39.9) 07/31/2022 Assessment & Plan (06/22/2024 3:50 PM EST): Patient's (Body mass index is 38.21 kg/m .) indicates that they are obese (BMI >30) with health conditions that include hypertension, diabetes mellitus, dyslipidemias, and osteoarthritis . Weight is worsening. BMI is above average; BMI management plan is completed. We discussed portion control and increasing exercise. Assessment & Plan (12/30/2023 4:46 PM EDT): Patient's (Body mass index is 36.56 kg/m .) indicates that they are obese (BMI >30) with health conditions that include hypertension, diabetes mellitus, and dyslipidemias . Weight is unchanged. BMI is above average; BMI management plan is completed. We discussed portion control and increasing exercise. Assessment & Plan (11/25/2023 3:31 PM EDT): Patient's (Body mass index is 36.56 kg/m .) indicates that they are obese (BMI >30) with health conditions that include hypertension, diabetes mellitus, and dyslipidemias . Weight is unchanged. BMI is above average; BMI management plan is completed. We discussed portion control and increasing exercise. Mild depression 07/31/2022 Palpitations 10/07/2021 Assessment & Plan (11/29/2023 5:17 PM EDT): Has been evaluated by cardiology. Carotids were investigated as well as stress test, all without abnormal findings. She denies any recent issues with chest fluttering, shortness of breath or feelings of rapid heart rate Disorder of peripheral nervous system 03/24/2021 Mixed hyperlipidemia 03/24/2021 Cannot sleep 03/24/2021 Raynaud's syndrome 12/20/2020 Assessment & Plan (11/29/2023 5:20 PM EDT): Patient states that at 1 point in time she was told she had lupus, but then the diagnosis was rescinded, she is unsure why. She states that she has a history of a positive NATANAEL. She has never been followed regularly by rheumatology. She states that she takes Lyrica 150 mg twice daily with excellent benefit in regards to the symptomology. Essential hypertension 09/20/2017 Assessment & Plan (06/22/2024 3:48 PM EST): Patient's blood pressure poorly controlled in office today, 150/90, during her last visit 8 weeks ago her lisinopril was increased from 20 to 40 mg daily for blood pressure of 156/100. Has not checked her blood pressure at home stating she does not have access to a cuff. Currently utilizing lisinopril 40 mg daily and amlodipine 10 mg daily. Denies any chest pain, shortness of breath or lower extremity edema. He does not particularly follow a low-sodium diet. -Continue lisinopril 40 mg daily-continue amlodipine 10 mg daily -Add metoprolol XL 25 mg daily -Patient to follow-up in 4 weeks Assessment & Plan (04/24/2024 2:34 PM EST): Patient's blood pressure dangerously high in office today, 156/100. She relates this to her pain. During her last visit her blood pressure was well-controlled on lisinopril 20 mg daily at 122/74. Increase lisinopril to 40mg daily Patient asked to keep home blood pressure log for review on next visit Assessment & Plan (12/30/2023 4:45 PM EDT): Pressure elevated in office today, likely due to uncontrolled pain, 142/94. During her last visit blood pressure was excellent, 122/74 with daily lisinopril 20 mg Assessment & Plan (11/29/2023 5:17 PM EDT): Patient blood pressure very well-controlled in office today, 122/74. Currently utilizing regimen of lisinopril 20 mg daily Lumbar spondylosis 09/20/2017 Assessment & Plan (06/22/2024 3:47 PM EST): Continues to have issues with chronic back pain, she states she is unable to afford the co-pay of $250 to follow-up with pain management who placed a pain pump several months ago. Assessment & Plan (04/20/2024 11:14 AM EDT): Only working on one side of her back, stimulator. She has had several adjustments on the stimulator. Assessment & Plan (12/30/2023 4:46 PM EDT): presents today for ongoing issues with back pain. Patient is followed by [facility] for severe lumbar spondylosis. In the past she has had to utilize hydrocodone for extensive flares. She had currently been finding benefit from daily gabapentin and as needed muscle relaxant. Fortunately patient states that she is currently rating her pain a 10 out of 10, unresponsive to her general measures. She feels that her back was Likely strained due to handling large bags of dog food. Also contributory was sleeping in a hospital bed during admission during the last week or so. Patient was scheduled for stimulator placement with [facility], however she missed the appointment due to being hospitalized. -Continue current regimen of Lyrica 150 mg daily -Will give short course of hydrocodone 5 mg as directed, Artemio report reviewed and satisfactory. -Follow-up with [facility] as soon as possible -Increase Lyrica to twice daily Assessment & Plan (11/29/2023 5:24 PM EDT): Review of patient's past medical records it appears she has spondylosis with radiculopathy of the lumbar spine. She has been followed regularly by [facility]. In the past she has had to utilize hydrocodone for extensive flares, currently finding benefit from daily gabapentin and as needed muscle relaxant dosing. Patient also takes diclofenac regularly. She states that she has been evaluated for a internal pain pump but is currently caring for her ill ex- which has postponed placement. Controlled type 2 diabetes rizwana castillo without complication, without long-term current use of insulin 09/20/2017 Assessment & Plan (06/22/2024 3:50 PM EST): Patient's last A1c reported to be 6%. She has not utilize any diabetic medications after metformin caused significant GI side effects of nausea, cramping and diarrhea. Patient would like initiation of GLP-1 medication to help with glucose control, as well as hopefully curb her appetite and promote weight loss given her worsening of hypertension in the recent months. Weight loss would also help with her chronic low back pain. We discussed potential side effects of GLP-1 medications including nausea, vomiting, diarrhea or constipation. -Initiate semaglutide 0.25 mg weekly -Patient to follow-up in 4 weeks Assessment & Plan (04/24/2024 2:34 PM EST): Patient states that she does not have a glucometer to check glucose at home. I have offered to prescribe her 1, then she tells me that she has several she just has to find them. He reports an A1C of 6.0% about one week ago at a different PCP office. He does not currently utilize any diabetic agents. Continue to monitor Assessment & Plan (11/29/2023 5:21 PM EDT): Patient states that she does not have a glucometer to check glucose at home. I have offered to prescribe her 1, then she tells me that she has several she just has to find them. He reports an A1C of 6.0% about one week ago at a different PCP office. He does not currently utilize any diabetic agents. Continue to monitor Resolved Problems Problem Noted Date Diagnosed Date Resolved Date Stress incontinence of urine 11/25/2023 11/29/2023 Avitaminosis D 03/24/2021 11/29/2023 Blues 03/24/2021 11/29/2023 BP (high blood pressure) 03/24/202103/2024 Immunizations Immunization Administration Dates Next Due COVID-19 (MODERNA) 12YRS+ (SPIKEVAX) 09/22/2023 COVID-19 (MODERNA) 1st,2nd,3 rd Dose Monovalent 12/30/2020,09/05/2020 COVID-19 (UNSPECIFIED) 12/24/2020 Fluzone High-Dose 65+YRS 04/20/2024 Fluzone High-Dose 65+yrs 03/25/2023,04/17/2022,1 Pneumococcal Conjugate 20-Valent (PCV20) 022 Social History Tobacco Use Types Packs/Day Years Used Date Smoking Tobacco: Never Smokeless Tobacco: Never Tobacco Cessation:Counseling Given: Not Answered Alcohol Use Standard Drinks/Week Comments Not Currently [...] or training? Not on file Preferred Language [place] 08/01/2022 PHQ-2 Answer Date Recorded Patient Health Questionnaire-2 Score 0 06/22/2024 Comments No Sex and Gender Information Value Date Recorded Sex Assigned at Not on file Legal Sex Female 1:48 PM EDT Gender Identity Not on file Sexual Orientation Not on file Last Filed Vital Signs Vital Sign Reading Time Taken Comments Blood Pressure 150/90 06/22/2024 2:04 PM EST Pulse 77 06/22/2024 2:04 PM EST Temperature 36.1 C (97 F) 06/22/2024 2:04 PM EST Respiratory Rate 16 06/22/2024 2:04 PM EST Oxygen Saturation 97% 06/22/2024 2:04 PM EST Inhaled Oxygen Concentration - - Weight 101 kg (222 lb 9.6 oz) 06/22/2024 2:04 PM EST Height 162.6 cm (5' 4 ) 06/22/2024 2:04 PM EST Body Mass Index 38.21 06/22/2024 2:04 PM EST Plan of Treatment Health Maintenance Due Date Last Done Comments DXA SCAN 1952 DIABETIC FOOT EXAM 1962 TDAP/TD VACCINES (1 - Tdap) 09/22/1971 COLOGUARD 1997 COLON CANCER SCREENING 5 YEA R SIGMOIDOSCOPY 1997 CT COLONOGRAPHY 1997 FECAL OCCULT BLOOD TEST 1997 FIT Testing (1 year) 1997 ZOSTER VACCINE (1 of 2) 2002 ANNUAL WELLNESS VISIT 09/20/2017 MAMMOGRAM 11/22/2021 11/23/2019, 11/23/2019 URINE MICROALBUMIN-CREATININ E RATIO (uACR) 04/17/2023 04/17/2022 DIABETIC EYE EXAM 08/14/2023 08/14/2022, 08/14/2022 LIPID PANEL 11/08/2024 11/09/2023, 05/22, 07/31/2022, Additional history exists INFLUENZA VACCINE 01/19/2025 04/20/2024, , 04/17/2022, Additional history exists COVID-19 Vaccine (2024- 6 season) 2025 09/22/2023, 12/30/2020, 12/24/2020, Additional history exists HEMOGLOBIN A1C 06/15/2025 12/14/2024, 11/20, 12/14/2023, Additional history exists COLONOSCOPY 10/25/2027 10/24/2017, 06/2017, 10/20/2016 (Patient-Reported (Performed Externally)) COLORECTAL CANCER SCREENING 10/25/2027 Pneumococcal Vaccine 50+ Completed 04/17/2022 HEPATITIS C SCREENING Completed 12/13/2023, 023 Procedures Procedure Name Priority Date/Time Associated Diagnosis Comments HEMOGLOBIN A1C Routine 06/09/2023 2:19 PM EST Controlled type 2 diabetes mellitus without complication, without long-term current use of insulin LIPID PANEL Routine 06/09/2023 2:19 PM EST Mixed hyperlipidemia HEPATITIS C ANTIBODY Routine 06/09/2023 2:19 PM EST Need for hepatitis C screening test MICROALBUMIN / CREATININE URINE RATIO Routine 04/17/2022 11:28 AM EDT Controlled type 2 diabetes mellitus without complication, without long-term current use of insulin SCANNED - INFLUENZA 03/25/2021 from Last 3 Months or Most Recently Relevant to Health Maintenance Results * Hepatitis C antibody (06/09/2023 2:19 PM EST) Pathologist [facility] Hepatitis C Ab Non-Reacti ve Non-Reacti ve 06/09/2023 8:22 PM EST [facility] Blood Venipuncture / Unknown 06/09/2023 2:19 PM EST 06/09/2023 2:23 PM EST [facility] - 06/09/2023 8:22 PM EST Results may be falsely decreased if patient taking Biotin. Kandis Bear PA-C LAB BLOOD ORDERABLES Final Res ult Performing Organization Address [facility]/ZIP Co de Phone Number [facility]
[address] [place] [address], * (ABNORMAL) Hemoglobin A1c (06/09/2023 2:19 PM EST) [facility] Hemoglobin A1C 6.40(H) 4.80 - 5.60 % 06/09/2023 7:56 PM EST [facility] Blood Venipuncture / Unknown 06/09/2023 2:19 PM EST 06/09/2023 2:23 PM EST [facility] - 06/09/2023 7:56 PM EST Hemoglobin A1C Ranges: Increased Risk for Diabetes 5.7% to 6.4% Diabetes >= 6.5% Diabetic Goal < 7.0% Kandis Bear PA-C LAB BLOOD ORDERABLES Final Res ult Performing Organization Address City/[facility]/ZIP Co de Phone Number [facility]
[address] [place] [address], * (ABNORMAL) Lipid panel (06/09/2023 2:19 PM EST) Total Cholesterol 291(H) 0 - 200 mg/dL 06/09/2023 8:09 PM EST [facility] Triglycerides 293(H) 0 - 150 mg/dL 06/09/2023 8:09 PM [facility] HDL Cholesterol 56 40 - 60 mg/dL 06/09/2023 8:09 PM [facility] LDL Cholesterol 179(H) 0 - 100 mg/dL 06/09/2023 8:09 PM [facility] VLDL Cholesterol 56(H) 5 - 40 mg/dL 06/09/2023 8:09 PM [facility] LDL/HDL Ratio 3.15 06/09/2023 8:09 PM [facility] Blood Venipuncture / Unknown 06/09/2023 2:19 PM EST 06/09/2023 2:23 PM EST [facility] - 06/09/2023 8:09 PM EST Cholesterol Reference Ranges (U.S. Department of Health and Human Services ATP III Classifications) Desirable <200 mg/dL Borderline High 200-239 mg/dL High Risk >240 mg/dL Triglyceride Reference Ranges (U.S. Department of Health and Human Services ATP III Classifications) Normal <150 mg/dL Borderline High 150-199 mg/dL High 200-499 mg/dL Very High >500 mg/dL HDL Reference Ranges (U.S. Department of Health and Human Services ATP III Classifications) Low <40 mg/dl (major risk factor for CHD) High >60 mg/dl ('negative' risk factor for CHD) LDL Reference Ranges (U.S. Department of Health and Human Services ATP III Classifications) Optimal <100 mg/dL Near Optimal 100-129 mg/dL Borderline High 130-159 mg/dL High 160-189 mg/dL Very High >189 mg/dL Kandis Bear PA-C LAB BLOOD ORDERABLES Final Res ult [facility]
[address] [place] [address], * Microalbumin / Creatinine Urine Ratio - Urine, Clean Catch (04/17/2022 11:28 AM EDT) Microalbumin/C reatinine Ratio 18.8 mg/g 04/17/2022 9:03 PM EDT [facility] Creatinine, Urine 149.0 mg/dL 04/17/2022 9:03 PM EDT [facility] Microalbumin, Urine 2.8 mg/dL 04/17/2022 9:03 PM EDT [facility] Urine Urine specimen obtained by clean catch procedure / Unknown Collection / Unknown 04/17/2022 11:28 AM EDT 04/17/2022 11:35 AM EDT Kandis Bear PA-C URINE ORDERABLES Final Result [facility]
[address] [place] [address], * SCANNED - INFLUENZA (03/25/2021) Kandis Bear PA-C CHART REVIEW TABS Final Res ult from Last 3 Months or Most Recently Relevant to Health Maintenance Insurance MEDICARE A & B Advance Directives * CPR (Attempt to Resuscitate) (Latest Code Status on File) Date Activated Date Inactivated Comments 07/31/2022 11:07 PM 08/04/2022 8:20 PM Question Answer Comments Code Status (Patient has no pulse and is not breathing): CPR (Attempt to Resuscitate) Medical Interventions (Patie nt has pulse or is breathing): Full Support Release to patient: Routine Release Care Teams Supervisor Laboratory Relationship Specialty Start Date End Date Jennifer Antonio APRN [address] [place] [address] PCP - General Family Medicine 11/25/23
== END 2025-05-09 23:59 | disposition home or self-care (01) ==
LOC: LAB.DROPOF 05-10 11:00
PROVIDERS: PCP Physician Assistant; Visit Provider Student in an Organized Health Care Education/Training Program
DX: N39.0 Urinary tract infection, site not specified (principal)
CPT/HCPCS: 87086